=== PATIENT | male | born 1945 | race Caucasian/White ===

== ENCOUNTER 2016-06-22 11:45 | Emergency (ER) | payer OTHER, MEDICARE ==
[2016-06-22 11:51] VITALS: BP 133/63; PULSE 60; TEMP 97.8; BMI 49.7
--- NOTE | 2016-06-22 11:56 | PDOC ---
History of Present Illness - General Chief Complaint: Cold Symptoms Stated Complaint: CONGESTION,COUGH Time Seen by Provider: 06/22/16 11:52 - History of Present Illness Initial Comments: 06/22/16 13:13 Chief complaint: Nasal congestion, postnasal drip, nonproductive cough History of present illness: As above for several days. Similar symptoms during the spring and fall in past years. No fever/chills, sputum production, chest pain or shortness of breath Physical exam: Alert and oriented well-developed well-nourished no acute distress cheerful and cooperative. No tachypnea or dyspnea Afebrile, vital signs normal HEENT: Minimal watery nasal discharge and congestion. Otherwise ears and throat clear Neck supple without mass or nodes Chest clear with full breath sounds throughout bilaterally. No wheezes rales or rhonchi. No splinting with deep inspiration. Respiratory rate 16 unlabored. O2 saturation 100% on room air. CV regular without murmur rub or gallop Abdomen benign Impression: Nasal congestion and nonproductive cough probably the result of postnasal drip. This is probably a manifestation of seasonal ALLERGIC rhinitis. No sign of active chest disease, bronchitis, pneumonia, or CHF Plan: Symptomatic treatment and follow up with primary physician Dr. Faustin. Past History - Past Medical History Allergies/Adverse Reactions: Allergies Allergy/AdvReac Type Severity Reaction Status Date / Time Sulfa (Sulfonamide Allergy Unknown Verified 06/22/16 11:46 Antibiotics) Home Medications: Ambulatory Orders Aspirin 81 mg PO DAILY 09/17/12 Allopurinol [Zyloprim -] 300 mg PO DAILY 01/12/13 Atenolol [Tenormin -] 25 mg PO DAILY 01/12/13 Cholecalciferol (Vitamin D3) [Vitamin D3] 4,000 unit PO DAILY 01/12/13 Losartan 50Mg/Hctz 12.5MG [Hyzaar -] 1 tab PO DAILY 01/12/13 Zolpidem Tartrate [Ambien] 10 mg PO HS 09/03/15 Amlodipine Besylate 10 mg PO DAILY 10/24/15 Budesonide [Rhinocort Allergy] 2 sprays NS DAILY #1 spray.pump 06/22/16 Guaifenesin Dm [Mucinex Dm -] 1 tab PO BID #14 tab.er.12h 06/22/16 Loratadine [Claritin] 10 mg PO DAILY #14 tablet 06/22/16 Cardiac Disorders: Yes (sob) HTN: Yes Hypercholesterolemia: Yes Kidney Stones: Yes - Psycho/Social/Smoking Cessation Hx Anxiety: No Suicidal Ideation: No Smoking Status: Yes Smoking History: Former smoker Have you smoked in the past 12 months: No Number of Cigarettes Smoked Daily: 0 If you are a former smoker, when did you quit?: 1989 Information on smoking cessation initiated: No Hx Alcohol Use: No Drug/Substance Use Hx: No Substance Use Type: None *Physical Exam - Vital Signs Last Vital Signs Temp Pulse Resp BP Pulse Ox 97.8 F 60 18 133/63 96 06/22/16 11:46 06/22/16 11:46 06/22/16 11:46 06/22/16 11:46 06/22/16 11:46 *DC/Admit/Observation/Transfer Diagnosis at time of Disposition: Allergic rhinitis Qualifiers: Allergic rhinitis trigger: pollen Allergic rhinitis seasonality: seasonal Qualified Code(s): J30.1 - Allergic rhinitis due to pollen - Discharge Dispostion Disposition: HOME Condition at time of disposition: Stable Admit: No - Prescriptions Prescriptions: Loratadine [Claritin] 10 mg PO DAILY #14 tablet Guaifenesin Dm [Mucinex Dm -] 1 tab PO BID #14 tab.er.12h Budesonide [Rhinocort Allergy] 2 sprays NS DAILY #1 spray.pump - Referrals Referrals: Jhonatan Faustin MD [Primary Care Provider] - 3 days - Patient Instructions Printed Discharge Instructions: DI for Allergic Rhinitis
== END 2016-06-22 12:50 | disposition home or self-care (01) ==
LOC: FER 11:45
DX: J30.1 Allergic rhinitis due to pollen (principal); Z79.82 Long term (current) use of aspirin
CPT/HCPCS: 99282-25

== ENCOUNTER 2016-08-10 20:23 | Observation (INO) | payer OTHER, MEDICARE ==
[2016-08-10 20:43] VITALS: BMI 48.8
--- NOTE | 2016-08-10 21:10 | PDOC ---
History of Present Illness - General History Source: Patient Exam Limitations: No Limitations - History of Present Illness Initial Comments: 08/10/16 21:42 The patient is a 70 year old obese male with a past medical history of HTN, CKD , chronic psoriasis, who presents to the ED with worsening left sided chest pain , and lightheadedness today. Patient describes the chest pain as dull and intermittent. Patient states he has been belching for several months now as well. He has been following up with his GI but was worried about any cardiac issues. Patient denies SOB, palpitations, nausea, vomiting, diarrhea. His last [facility] appointment was last September. He had a stress test done that was normal. PCP: Dr. Faustin PAST MEDICAL HISTORY: HTN, CKD, chronic psoriasis PAST SURGICAL HISTORY: no significant history FAMILY HISTORY: Mother and father of heart attack. SOCIAL HISTORY: Pt lives with family and is employed. MEDICATIONS: reviewed ALLERGIES: As per nursing notes ROS General: No fevers or chills, no weakness, no weight loss HEENT: No change in vision. No sore throat,. No ear pain CardioVascular: + intermittent left sided chest pain. No shortness of breath Respiratory:No cough, or wheezing. Gastrointestinal: + belching. no nausea, vomiting, diarrhea or constipation, No rectal bleeding Genitourinary: No dysuria, hematuria, or frequency Musculoskeletal: No joint or muscle pain or swelling Neurologic: + lightheadedness. No headache, vertigo, or loss of consciousness Psychiatric: nor depression Skin: No rashes or easy bruising Endocrine: no increased thirst or abnormal weight change Allergic: no skin or latex allergy All other systems reviewed and normal Exam: General: No acute distress. Morbidly obese male. HEENT: Throat: Normal, tonsils normal, no erythema or exudate Neck: Supple, no meningeal signs, no lymphadenopathy Eyes::Pupils equal reactive and round, extraocular motion intact Chest: Nontender to palpation Cardiac: S1-S2 normal, regular rate and rhythm, no murmurs rubs or gallops Respiratory: Lungs clear to auscultation bilateral Abdomen: Protuberant abdomen. Soft, nondistended, normal bowel sounds, nontender to palpation diffusely. Extremities: Lower extremities is marked chronic lymphedema bilaterally with scaling bilaterally and some crusting. Rest of extremities: Warm, dry, no cyanosis, clubbing, or edema Skin: No rashes Neuro: Alert and oriented x3, nonfocal exam, grossly intact, normal gait Psych: Normal mood and affect <Grant Boland - Last Filed: 08/10/16 21:48> - General History Source: Patient Exam Limitations: No Limitations - History of Present Illness Initial Comments: 08/10/16 21:34 A portion of this note was documented by scribe services under my direction. I have reviewed the details of the note, within reason, and agree with the documentation. The case summary and management plan written by me. Chest x-ray no acute pathology EKG normal sinus rhythm at a rate of [address]-T wave abnormality no significant change from prior cardiogram of 10/24/2015 Assessment and plan: This is a 70-year-old male who comes in complaining substernal chest discomfort radiating to his left wrist. Patient said these episodes are not associated with any diaphoresis nausea or shortness of breath however he did have some associated dizziness this evening which prompted him to come in for evaluation. Patient has a strong family history of coronary disease artery disease Patient is morbidly obese and has a history of hypertension high cholesterol Patient's workup was negative for any acute cardiac causes however he needs to be admitted for observation for 2 more sets of enzymes. Discussed admission with the hospitalist who will the patient to a observation telemetry bed. <Darlin Causey I - Last Filed: 08/10/16 22:34> - General Chief Complaint: Pain Stated Complaint: REFLUX Time Seen by Provider: 08/10/16 20:45 Past History <Grant Boland - Last Filed: 08/10/16 21:48> - Past Medical History Cardiac Disorders: Yes (sob) GI Disorders: Yes (GERD) HTN: Yes Hypercholesterolemia: Yes Kidney Stones: Yes - Psycho/Social/Smoking Cessation Hx Anxiety: No Suicidal Ideation: No Smoking Status: Yes Smoking History: Never smoked Have you smoked in the past 12 months: No Number of Cigarettes Smoked Daily: 0 If you are a former smoker, when did you quit?: 1989 Information on smoking cessation initiated: No Hx Alcohol Use: No Drug/Substance Use Hx: No Substance Use Type: None <Darlin Causey I - Last Filed: 08/10/16 22:34> - Past Medical History Allergies/Adverse Reactions: Allergies Allergy/AdvReac Type Severity Reaction Status Date / Time Sulfa (Sulfonamide Allergy Unknown Verified 08/10/16 21:48 Antibiotics) Home Medications: Ambulatory Orders Aspirin 81 mg PO DAILY 09/17/12 Allopurinol [Zyloprim -] 300 mg PO DAILY 01/12/13 Atenolol [Tenormin -] 25 mg PO DAILY 01/12/13 Cholecalciferol (Vitamin D3) [Vitamin D3] 4,000 unit PO DAILY 01/12/13 Losartan 50Mg/Hctz 12.5MG [Hyzaar -] 1 tab PO DAILY 01/12/13 Zolpidem Tartrate [Ambien] 10 mg PO HS 09/03/15 Amlodipine Besylate 10 mg PO DAILY 10/24/15 Budesonide [Rhinocort Allergy] 2 sprays NS DAILY #1 spray.pump 06/22/16 Guaifenesin Dm [Mucinex Dm -] 1 tab PO BID #14 tab.er.12h 06/22/16 Loratadine [Claritin] 10 mg PO DAILY #14 tablet 06/22/16 Ranitidine [Zantac -] 150 mg PO BID 08/10/16 *Physical Exam - Vital Signs Last Vital Signs Temp Pulse Resp BP Pulse Ox 98.1 F 62 18 157/69 93 L 08/10/16 20:26 08/10/16 20:26 08/10/16 20:26 08/10/16 20:26 08/10/16 20:26 <Grant Boland - Last Filed: 08/10/16 21:48> - Vital Signs Last Vital Signs Temp Pulse Resp BP Pulse Ox 98.1 F 62 18 157/69 93 L 08/10/16 20:26 08/10/16 20:26 08/10/16 20:26 08/10/16 20:26 08/10/16 20:26 <Darlin Causey I - Last Filed: 08/10/16 22:34> ED Treatment Course - LABORATORY CBC & Chemistry Diagram: 08/10/16 21:30 08/10/16 21:30 <Grant Boland - Last Filed: 08/10/16 21:48> - LABORATORY CBC & Chemistry Diagram: 08/10/16 21:30 08/10/16 21:30 <Darlin Causey I - Last Filed: 08/10/16 22:34> *DC/Admit/Observation/Transfer - Attestations Scribe Attestion: 08/10/16 21:44 Documentation prepared by Grant Boland, acting as ophthalmic medical assistant for Darlin Causey MD. <Grant Boland - Last Filed: 08/10/16 21:48> - Discharge Dispostion Admit: Yes <Darlin Causey I - Last Filed: 08/10/16 22:34> Diagnosis at time of Disposition: Chest pain at rest - Discharge Dispostion Condition at time of disposition: Good - Referrals Referrals: Jhonatan Faustin MD [Primary Care Provider] -
[2016-08-10 21:51] LABS: BASOPHIL 0.3 % (0-2.0); EOSINOPHIL 5.2 % (0-4.5); MCH 28.5 pg (25.7-33.7); MCHC 33.3 g/dl (32.0-35.9); MEAN CELL VOLUME 85.5 fl (80-96); MEAN PLT VOLUME 8.2 fl (7.5-11.1); NEUTROPHILS 77.8 % (42.8-82.8); PLATELET COUNT 265 K/MM3 (134-434); RDW 14.6 % (11.9-15.9); WHITE BLOOD COUNT 8.6 K/mm3 (4.0-10.8)
[2016-08-10 22:06] LABS: ALBUMIN 3.8 g/dl (3.5-5.0); ALK PHOS 87 U/L (32-92); ANION GAP 9 (8-16); CALCIUM 9.9 mg/dl (8.4-10.2); CO2 25 mmol/L (22-28); CPK(DFH) 60 IU/L (38-174); GLUCOSE,RANDOM 91 mg/dl (74-106); SGOT/AST 15 U/L (10-42); SGPT/ALT 12 U/L (10-40); TOT PROT 6.9 g/dl (6.4-8.3)
[2016-08-10 22:26] LABS: TROPONIN I (DFP) < 0.03 ng/ml (0.03-0.50)
[2016-08-10] MEDS ORDERED: PANTOPRAZOLE 40 MG TABLET (FP) PO SCH (22:45)
[2016-08-10] MEDS ORDERED: ZOLPIDEM TARTRATE 5 MG TABLET PO PRN (22:50)
--- NOTE | 2016-08-10 22:57 | HP ---
CHIEF COMPLAINT: chest pain PCP: Mikey Lancaster, GI in [facility] HISTORY OF PRESENT ILLNESS: This is a 70 year old male with a past medical history of HTN, CKD, chronic psoriasis, GERD and nephrolithiasis who presents to the ED with a 1 month history of chest pain off and on. He states it all started after drinking a carbonated beverage approximately one month ago and he was unable to belch. Pt has been having frequent belching episodes and epigastric and chest discomfort since. He reports the chest discomfort is left sided and is relieved by position change. The pain is fleeting and lasts only minutes at a time. He aslo reports episode of lightheadedness earlier today which has completely resolved. He was seen by a GI doctor who started him on ranitidine which he stopped as it was "making his stomach worse". He was also recently started on claritin, mucinex and rhinocort for his allergies / PND which did not help either. He also stopped a statin in January that he was started on in September due to constipation. He reports he had a normal nuclear stress test and echocardiogram with Dr. Jensen in September 2015. ER course was notable for: (1) troponin neg x 1 (2) no ECG changes (3) normal CXR Recent Travel: pt denies PAST MEDICAL HISTORY: HTN CKD (pt denies but clear from previous labs) nephrolithiasis GERD chronic psoriasis PAST SURGICAL HISTORY: pt denies Social History: Smoking: pt denies current, quit many years ago Alcohol: pt denies Drugs: pt denies Family History: mother first MO age 60, age 81 in her sleep father [place] age 53, age 61, sudden Allergies Sulfa (Sulfonamide Antibiotics) Allergy (Unknown, Verified 08/10/16 21:48) HOME MEDICATIONS: 3 Medication Instructions Recorded Aspirin 81 mg PO DAILY 09/17/12 Allopurinol [Zyloprim -] 300 mg PO DAILY 01/12/13 Atenolol [Tenormin -] 25 mg PO DAILY 01/12/13 Cholecalciferol (Vitamin D3) 4,000 unit PO DAILY 01/12/13 [Vitamin D3] Losartan 50Mg/Hctz 12.5MG [Hyzaar 1 tab PO DAILY 01/12/13 -] Zolpidem Tartrate [Ambien] 10 mg PO HS 09/03/15 Amlodipine Besylate 10 mg PO DAILY 10/24/15 Ranitidine [Zantac -] 150 mg PO BID 08/10/16 REVIEW OF SYSTEMS CONSTITUTIONAL: Absent: fever, chills, diaphoresis, generalized weakness, malaise, loss of appetite, weight change HEENT: Absent: rhinorrhea, nasal congestion, throat pain, throat swelling, difficulty swallowing, mouth swelling, ear pain, eye pain, visual changes CARDIOVASCULAR: Present: chest pain, peripheral edema Absent: syncope, palpitations, irregular heart rate, lightheadedness RESPIRATORY: Absent: cough, shortness of breath, dyspnea with exertion, orthopnea, wheezing, stridor, hemoptysis GASTROINTESTINAL: Present: abdominal pain Absent: abdominal distension, nausea, vomiting, diarrhea, constipation, melena, hematochezia GENITOURINARY: Absent: dysuria, frequency, urgency, hesitancy, hematuria, flank pain, genital pain MUSCULOSKELETAL: Absent: myalgia, arthralgia, joint swelling, back pain, neck pain SKIN: Absent: rash, itching, pallor HEMATOLOGIC/IMMUNOLOGIC: Absent: easy bleeding, easy bruising, lymphadenopathy, frequent infections ENDOCRINE: Absent: unexplained weight gain, unexplained weight loss, heat intolerance, cold intolerance NEUROLOGIC: Absent: headache, focal weakness or paresthesias, dizziness, unsteady gait, seizure, mental status changes, bladder or bowel incontinence PSYCHIATRIC: Absent: anxiety, depression, suicidal or homicidal ideation, hallucinations. PHYSICAL EXAMINATION Vital Signs - 24 hr 3 08/10/16 20:26 Temperature 98.1 F Pulse Rate 62 Respiratory 18 Rate Blood Pressure 157/69 O2 Sat by Pulse 93 L Oximetry (%) GENERAL: Awake, alert, and fully oriented, in no acute distress. HEAD: Normal with no signs of trauma. EYES: Pupils equal, round and reactive to light, extraocular movements intact, sclera anicteric, conjunctiva clear. No lid lag. EARS, NOSE, THROAT: Ears normal, nares patent, oropharynx clear without exudates. Moist mucous membranes. NECK: Normal range of motion, supple without lymphadenopathy, JVD, or masses. LUNGS: Breath sounds equal, clear to auscultation bilaterally. No wheezes, and no crackles. No accessory muscle use. HEART: Regular rate and rhythm, normal S1 and S2 without murmur, rub or gallop. ABDOMEN: OBESE, soft, nontender, not distended, normoactive bowel sounds, no guarding, no rebound, no masses. No hepatomegaly or splenomegaly. MUSCULOSKELETAL: Normal range of motion at all joints. No bony deformities or tenderness. No CVA tenderness. UPPER EXTREMITIES: 2+ pulses, warm, well-perfused. No cyanosis. No clubbing. No peripheral edema. LOWER EXTREMITIES: 2+ pulses, warm, well-perfused. No calf tenderness. b/l LE scaly, hypertrophic lesions, left with tr edema, right 1+ NEUROLOGICAL: Cranial nerves II-XII intact. Normal speech. Normal gait. PSYCHIATRIC: Cooperative. Good eye contact. Appropriate mood and affect. SKIN: Warm, dry, normal turgor, no rashes or lesions noted, normal capillary refill. Laboratory Results - last 24 hr 3 08/10/16 08/10/16 08/10/16 21:30 21:30 21:30 WBC 8.6 RBC 5.36 Hgb 15.3 D Hct 45.9 MCV 85.5 MCHC 33.3 RDW 14.6 Plt Count 265 MPV 8.2 Neutrophils % 77.8 Lymphocytes % 11.3 Monocytes % 5.4 Eosinophils % 5.2 H Basophils % 0.3 Sodium 134 L Potassium 4.0 Chloride 100 Carbon Dioxide 25 D Anion Gap 9 BUN 32 H D Creatinine 2.0 H D Creat Clearance w eGFR 33.01 Random Glucose 91 Calcium 9.9 Total Bilirubin 1.0 D AST 15 D ALT 12 Alkaline Phosphatase 87 Creatine Kinase 60 Troponin I < 0.03 L Total Protein 6.9 Albumin 3.8 Lipase 30 CHEST X-RAY PORTABLE* HISTORY PROVIDED: GERD. A single frontal portable projection of the chest at 9:23 PM is submitted. The heart size is within normal limits. The lung avendaño are free of pulmonary infiltrates or pleural effusions. IMPRESSION: No acute disease. ECG: NSR rate 59, QTC 427, nonspecific ST/T changes, unchanged from previous ECG ASSESSMENT/PLAN: 70yM with PMH HTN, CKD, chronic psoriasis, GERD, renal colic presents with chest discomfort x 1 month and lightheadedness today. He is being admitted for further observation. Chest pain - nonspecific, unlikely cardiac - Troponin neg x 1, trend x2 more, if neg would dc home with o/p follow up with PCP and cardiology - monitor on tele Acute on CKD - Cr of 2.0 above baseline of 1.5-1.6 - gentle iv hydration @ 75cc/hr x 1 liter - cont allopurinol for nephrolithiasis GERD - trial of protonix - f/u with GI as outpatient for EGD HTN - cont home amlodipine, hyzaar and atenolol. Monitor BP and if persistently elevated, adjust dosing DVT PPX - defer as expected LOS <48h Dispo: Full code. Pt currently requires inpatient observation for management of his emergent condition. Visit type - Emergency Visit Emergency Visit: Yes ED Registration Date: 08/10/16 Care time: The patient presented to the Emergency Department on the above date and was hospitalized for further evaluation of their emergent condition. - New Patient This patient is new to me today: Yes Date on this admission: 08/10/16 - Critical Care Critical Care patient: No
[2016-08-10] MEDS ORDERED: SODIUM CHLORIDE 1,000 ML IV SCH (23:00)
[2016-08-11 05:01] LABS: TROPONIN I < 0.02 ng/ml (0.00-0.05)
[2016-08-11 06:05] VITALS: BP 137/66; PULSE 54; TEMP 97.6
[2016-08-11 07:45] LABS: BASOPHIL 2.7 % (0-2.0); EOSINOPHIL 6.4 % (0-4.5); MCH 28.8 pg (25.7-33.7); MCHC 33.9 g/dl (32.0-35.9); MEAN PLT VOLUME 7.5 fl (7.5-11.1); NEUTROPHILS 69.1 % (42.8-82.8); PLATELET COUNT 227 K/MM3 (134-434); RDW 14.5 % (11.9-15.9); WHITE BLOOD COUNT 7.7 K/mm3 (4.0-10.8)
[2016-08-11 08:03] LABS: CPK(DFH) 55 IU/L (38-174)
[2016-08-11 08:05] LABS: ANION GAP 10 (8-16); CALCIUM 9.6 mg/dl (8.4-10.2); CO2 26 mmol/L (22-28); CREATININE 1.8 mg/dl (0.6-1.3); GLUCOSE,RANDOM 92 mg/dl (74-106); PHOSPHOROUS 3.6 mg/dl (2.5-4.6)
[2016-08-11 08:53] LABS: TROPONIN I (DFP) < 0.03 ng/ml (0.03-0.50)
[2016-08-11] MEDS ORDERED: ALLOPURINOL 300 MG TABLET (FP) PO SCH (10:00)
[2016-08-11] MEDS ORDERED: LOSARTAN 50MG/HCTZ 12.5MG 1 TAB (FP) PO SCH (10:00)
[2016-08-11] MEDS ORDERED: CHOLECALCIFEROL (VITAMIN D3) 1,000 UNIT TABLET (FP) PO SCH (10:00)
[2016-08-11] MEDS ORDERED: amLODIPine BESYLATE 10 MG TABLET (FP) PO SCH (10:00)
[2016-08-11] MEDS ORDERED: ATENOLOL 25 MG TABLET (FP) PO SCH (10:00)
[2016-08-11] MEDS ORDERED: ASPIRIN 81 MG CHEWABLE TABLETS PO SCH (10:00)
--- NOTE | 2016-08-11 10:04 | DS ---
Physical Exam: SUBJECTIVE: Patient seen and examined. No chest pain. Reports symptoms completely resolved, attributes this to Protonix. OBJECTIVE: Vital Signs Period Temp Pulse Resp BP Sys/Amaral Pulse Ox Last 24 Hr 97.6 F-97.9 F 54-61 20-20 137-139/65-66 92-98 PHYSICAL EXAM GENERAL: The patient is awake, alert, and fully oriented, in no acute distress. HEAD: Normal with no signs of trauma. EYES: PERRL, extraocular movements intact, sclera anicteric, conjunctiva clear. ENT: Ears normal, nares patent, oropharynx clear without exudates, moist mucous membranes. NECK: Trachea midline, full range of motion, supple. LUNGS: Breath sounds equal, clear to auscultation bilaterally, no wheezes, no crackles, no accessory muscle use. HEART: Regular rate and rhythm, S1, S2 without murmur, rub or gallop. ABDOMEN: Soft, nontender, obese, normoactive bowel sounds, no guarding, no rebound, no hepatosplenomegaly, no masses. EXTREMITIES: 2+ pulses, warm, well-perfused, 1+ LE edema (baseline per patient) . NEUROLOGICAL: Cranial nerves II through XII grossly intact. Normal speech, gait not observed. PSYCH: Normal mood, normal affect. SKIN: Warm, dry, extensive psoriatic plaques to lower extremities, elbows, and lower back. LABS Laboratory Results - last 24 hr 08/11/16 08/11/16 08/11/16 03:16 03:16 07:37 WBC 7.7 RBC 5.21 Hgb 15.0 Hct 44.3 MCV 85.0 MCHC 33.9 RDW 14.5 Plt Count 227 MPV 7.5 Neutrophils % 69.1 Lymphocytes % 15.3 D Monocytes % 6.5 Eosinophils % 6.4 H Basophils % 2.7 H D Sodium Potassium Chloride Carbon Dioxide Anion Gap BUN Creatinine Random Glucose Calcium Phosphorus Magnesium Creatine Kinase Cancelled 49 Troponin I Cancelled < 0.02 08/11/16 08/11/16 07:37 07:37 WBC RBC Hgb Hct MCV MCHC RDW Plt Count MPV Neutrophils % Lymphocytes % Monocytes % Eosinophils % Basophils % Sodium 136 Potassium 3.8 Chloride 100 Carbon Dioxide 26 Anion Gap 10 BUN 29 H Creatinine 1.8 H Random Glucose 92 Calcium 9.6 Phosphorus 3.6 Magnesium 2.0 Creatine Kinase 55 Troponin I < 0.03 L HOSPITAL COURSE: 70 year old male with a history of HTN, CKD (baseline Cr 1.5), chronic psoriasis, GERD, seasonal allergies, and nephrolithiasis who presented to the ED on 08/10 with one month of intermittent chest discomfort. He reports that he was not drinking enough water during the recent hot days, and felt lightheaded; this is what prompted him to present to the ED. He reports he had a normal nuclear stress test and echocardiogram with Dr. Jensen in September 2015. Hospital course was notable for: (1) EKG:NSR at a rate of [address]-T wave abnormality; no significant change from prior cardiogram of 10/24/2015 (2) CXR: No acute process (3) TNI neg x 3 Patient is feeling well today and is eager to leave. He has a followup appointment with Dr. Faustin on Saturday. Return precautions reviewed. Date of Admission:08/10/16 Date of Discharge: 08/11/16 Minutes to complete discharge: 40 Discharge Summary Reason For Visit: CHEST PAIN AT REST Current Active Problems Chest pain at rest (Acute) Condition: Improved - Instructions Diet, Activity, Other Instructions: -Rest and stay well-hydrated -Continue all of your prescribed medications, with the following changes: -Do not take Hyzaar (Losartan/HCTZ) today or tomorrow to allow your kidney function to recover -Start taking Protonix (pantoprazole) for your stomach discomfort -Follow up with Dr. Faustin on Saturday as scheduled -Return here for chest pain, shortness of breath, or any other concerning symptoms Referrals: Jhonatan Faustin MD [Primary Care Provider] - - Home Medications Comprehensive Discharge Medication List: Ambulatory Orders Aspirin 81 mg PO DAILY 09/17/12 Allopurinol [Zyloprim -] 300 mg PO DAILY 01/12/13 Atenolol [Tenormin -] 25 mg PO DAILY 01/12/13 Cholecalciferol (Vitamin D3) [Vitamin D3] 4,000 unit PO DAILY 01/12/13 Losartan 50Mg/Hctz 12.5MG [Hyzaar -] 1 tab PO DAILY 01/12/13 Zolpidem Tartrate [Ambien] 10 mg PO HS 09/03/15 Amlodipine Besylate 10 mg PO DAILY 10/24/15 Budesonide [Rhinocort Allergy] 2 sprays NS DAILY #1 spray.pump 06/22/16 Ranitidine [Zantac -] 150 mg PO BID 08/10/16 This patient is new to me today: Yes Date on this admission: 08/11/16 Emergency Visit: Yes ED Registration Date: 08/10/16 Care time: The patient presented to the Emergency Department on the above date and was hospitalized for further evaluation of their emergent condition. Critical Care patient: No - Discharge Referral Referred to [facility] Yes Physician Referral: Jhonatan Faustin MD (Int Med)
--- NOTE | 2016-08-13 08:37 | EKG ---
Test Reason : Blood Pressure : / mmHG Vent. Rate : 059 BPM Atrial Rate : 059 BPM P-R Int : 208 ms QRS Dur : 074 ms QT Int : 432 ms P-R-T Axes : 017 017 033 degrees QTc Int : 427 ms POOR DATA QUALITY, INTERPRETATION MAY BE ADVERSELY AFFECTED SINUS BRADYCARDIA WITH SINUS ARRHYTHMIA NONSPECIFIC T WAVE ABNORMALITY ABNORMAL ECG WHEN COMPARED WITH ECG OF 19-FEB-2011 12:33, NONSPECIFIC T WAVE ABNORMALITY is now present in V2 Confirmed by INGA PEREZ MD ([id number]) on 08/13/2016 8:37:37 AM Referred By: MD ROJAS Confirmed By:INGA PEREZ MD
== END 2016-08-11 10:40 | disposition home or self-care (01) ==
LOC: FER 20:23 → FM/S 22:39
PROVIDERS: ADMIT Internal Medicine; ATTEND Registered Nurse Emergency
DX: R07.9 Chest pain, unspecified (principal); I12.9 Hypertensive chronic kidney disease with stage 1 through stage 4 chronic kidney disease, or unspecified chronic kidney disease; N18.9 Chronic kidney disease, unspecified; N17.9 Acute kidney failure, unspecified; E78.00 Pure hypercholesterolemia, unspecified; L40.9 Psoriasis, unspecified; E66.01 Morbid (severe) obesity due to excess calories; Z68.42 Body mass index [BMI] 45.0-49.9, adult; K21.9 Gastro-esophageal reflux disease without esophagitis; Z88.2 Allergy status to sulfonamides; Z79.82 Long term (current) use of aspirin
CPT/HCPCS: 36415; 71010-TC; 80048; 80053; 82550; 83690; 83735; 83880; 84100; 84484; 85025; 93005; 99285-25; G0378

== ENCOUNTER 2016-10-22 03:02 | Emergency (ER) | payer OTHER, MEDICARE ==
--- NOTE | 2016-10-22 03:05 | PDOC ---
History of Present Illness - General Chief Complaint: Lightheaded Stated Complaint: LIGHTHEADED, FEELS PULLING IN UPPER CHEST X 2 GILL Time Seen by Provider: 10/22/16 03:04 - History of Present Illness Initial Comments: 10/22/16 03:53 This 70-year-old man with a history of hypertension, morbid obesity, GERD, psoriasis/peripheral neuropathy, renal insufficiency presents with several week history of intermittent left anterior chest pain. The pain which patient rates at 4/10, is located below the left axilla and worsened when he moves his left arm in a certain way, laughs or coughs. Pain began approximately 2 months ago, suddenly ,when he was bearing down while having a bowel movement. He denies shortness of breath/cough and pain does not worsen with deep breathing. He states that he does not have the pain when he exerts himself (such as walking upstairs). Patient also complains of nonspecific lightheadedness (not vertigo) the last few days. This is not related to activity or position and he denies nausea. 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 He has an appointment with Dr. Jensen at 1 PM, later today. Patient was admitted here in July of this year with atypical chest pain: Subsequent endoscopy on August 31 revealed gastritis and esophagitis. Since then, the patient is taking Protonix and most of his gastrointestinal issues are improving. Cardiac risk factors: Hypertension/morbid obesity/family history (both parents with MIs). Patient denies hyperlipidemia. He quit smoking 26 years ago Past History - Past Medical History Allergies/Adverse Reactions: Allergies Allergy/AdvReac Type Severity Reaction Status Date / Time Sulfa (Sulfonamide Allergy Unknown Verified 10/22/16 03:06 Antibiotics) Home Medications: Ambulatory Orders Pantoprazole Sodium [Protonix -] 40 mg PO DAILY #30 tab 08/11/16 Cholecalciferol (Vitamin D3) [Vitamin D3] 2,000 unit PO ASDIR tablet 08/17/16 Zolpidem Tartrate [Ambien] 10 mg PO HS 10/22/16 Cardiac Disorders: Yes (sob) GI Disorders: Yes (GERD) HTN: Yes Hypercholesterolemia: Yes Kidney Stones: Yes - Psycho/Social/Smoking Cessation Hx Anxiety: No Suicidal Ideation: No Smoking Status: Yes Smoking History: Former smoker Have you smoked in the past 12 months: No Number of Cigarettes Smoked Daily: 0 If you are a former smoker, when did you quit?: 1989 Hx Alcohol Use: No Drug/Substance Use Hx: No Substance Use Type: None Review of Systems - Review of Systems Able to Perform ROS?: Yes Comments:: 12 point review of systems is negative except for what is noted in the history of present illness *Physical Exam - Physical Exam Comments: GENERAL: Adult, morbidly obese man, speaking in full sentences, in no acute distress HEAD: Normal with no signs of trauma. EYES: PERRLA, EOMI, sclera anicteric, conjunctiva clear. ENT: Ears normal, nares patent, oropharynx clear without exudates. Moist mucous membranes. NECK: Normal range of motion, supple without lymphadenopathy, JVD, or masses. LUNGS: Breath sounds equal, clear to auscultation bilaterally. No wheezes, and no crackles. CHEST WALL: No tenderness, crepitus, step offs palpated; left anterolateral chest pain not reproduced with abduction/adduction of the arm HEART:Regular rate and rhythm, normal S1 and S2 without murmur, rub or gallop. ABDOMEN:.normal bowel sounds protuberant with mild epigastric tenderness No guarding,tenderness or rebound.No masses EXTREMITIES: 3+ nonpitting edema throughout bilateral lower extremities with patches of scaly rash NEUROLOGICAL: Cranial nerves II through XII grossly intact. Normal , fluent speech. Moving all 4 extremities equally MUSCULOSKELETAL: Back non-tender to palpation, no CVA tenderness SKIN: Warm, Dry, normal turgor 12-lead electrocardiogram is performed and interpreted by me. There is significant baseline interference pattern. Sinus bradycardia 51 beats per minute. [place], wave forms and intervals are all unchanged from tracing dated ED Treatment Course - LABORATORY CBC & Chemistry Diagram: 10/22/16 03:32 10/22/16 03:32 *DC/Admit/Observation/Transfer Diagnosis at time of Disposition: Atypical chest pain, Dehydration - Discharge Dispostion Disposition: HOME Condition at time of disposition: Stable - Referrals Referrals: Jhonatan Faustin MD [Primary Care Provider] - Theo Jensen MD [Staff Physician] - 24 hours - Patient Instructions Printed Discharge Instructions: DI for Dehydration -- Adult, DI for Atypical Chest Pain Additional Instructions: Drink plenty of water as discussed Follow-up today with Dr. Jensen as previously scheduled Contact Dr. Faustin for follow-up within 1 week Return to ER if you have worsening pain or severe lightheadedness Gradually increase activity as discussed
[2016-10-22 03:15] VITALS: BP 146/71; PULSE 58; TEMP 97.5; BMI 47.5
[2016-10-22 04:09] LABS: BASOPHIL 0.9 % (0-2.0); MCH 28.9 pg (25.7-33.7); MCHC 33.7 g/dl (32.0-35.9); MEAN CELL VOLUME 85.9 fl (80-96); MEAN PLT VOLUME 8.1 fl (7.5-11.1); NEUTROPHILS 76.5 % (42.8-82.8); PLATELET COUNT 207 K/MM3 (134-434); RDW 15.2 % (11.9-15.9); WHITE BLOOD COUNT 7.7 K/mm3 (4.0-10.0)
[2016-10-22 04:26] LABS: INR 1.12 (0.82-1.09); PROTHROMBIN TIME (PATIENT) 12.4 SEC (9.98-11.88)
[2016-10-22 04:30] LABS: ALBUMIN 3.5 g/dl (3.4-5.0); ANION GAP 9 (8-16); BILIRUBIN,TOTAL 0.8 mg/dL (0.2-1.0); CALCIUM 8.6 mg/dL (8.5-10.1); CO2 26 mmol/L (21-32); CREATININE 2.3 mg/dL (0.7-1.3); GLUCOSE,RANDOM 89 mg/dL (74-106); SGOT/AST 14 U/L (15-37); SGPT/ALT 18 U/L (12-78); TOT PROT 7.3 g/dl (6.4-8.2)
[2016-10-22 04:32] LABS: ALK PHOS 111 U/L (45-117); CPK 87 IU/L (39-308); TROPONIN I 0.02 ng/ml (0.00-0.05)
--- NOTE | 2016-10-22 17:44 | EKG ---
Test Reason : Blood Pressure : / mmHG Vent. Rate : 051 BPM Atrial Rate : 051 BPM P-R Int : 200 ms QRS Dur : 086 ms QT Int : 482 ms P-R-T Axes : 056 008 027 degrees QTc Int : 444 ms POOR DATA QUALITY, INTERPRETATION MAY BE ADVERSELY AFFECTED SINUS BRADYCARDIA NONSPECIFIC ST AND T WAVE ABNORMALITY WHEN COMPARED WITH ECG OF 10-AUG-2016 20:51, NONSPECIFIC T WAVE ABNORMALITY NOW EVIDENT IN LATERAL LEADS Confirmed by MD NIXON, CHRISTIANA ([id number]) on 10/22/2016 5:43:37 PM Referred By: MD ROSA Confirmed By:CHRISTIANA ALICEA MD
== END 2016-10-22 05:07 | disposition home or self-care (01) ==
LOC: FER 03:02
DX: R07.89 Other chest pain (principal); E86.0 Dehydration; E66.01 Morbid (severe) obesity due to excess calories; Z68.42 Body mass index [BMI] 45.0-49.9, adult; K21.9 Gastro-esophageal reflux disease without esophagitis; I10 Essential (primary) hypertension; E78.00 Pure hypercholesterolemia, unspecified; Z87.891 Personal history of nicotine dependence; Z87.442 Personal history of urinary calculi
CPT/HCPCS: 36415; 80053; 84484; 85025; 85610; 93005; 99282-25

== ENCOUNTER 2016-11-04 09:35 | Emergency (ER) | payer OTHER, MEDICARE ==
[2016-11-04 10:04] VITALS: BP 128/61; PULSE 53; TEMP 97.6; BMI 46.0
[2016-11-04 10:52] LABS: BASOPHIL 0.5 % (0-2.0); EOSINOPHIL 5.2 % (0-4.5); MCH 29.3 pg (25.7-33.7); MCHC 33.7 g/dl (32.0-35.9); MEAN CELL VOLUME 87.1 fl (80-96); MEAN PLT VOLUME 7.2 fl (7.5-11.1); NEUTROPHILS 80.5 % (42.8-82.8); PLATELET COUNT 215 K/MM3 (134-434); RDW 15.1 % (11.9-15.9); WHITE BLOOD COUNT 6.9 K/mm3 (4.0-10.8)
--- NOTE | 2016-11-04 11:07 | PDOC ---
History of Present Illness - General Chief Complaint: Lightheaded Stated Complaint: DIZZINESS Time Seen by Provider: 11/04/16 09:40 History Source: Patient Exam Limitations: No Limitations - History of Present Illness Initial Comments: 11/04/16 11:08 70y M hx of htn, obesity, gerd, psoriasis/peripheral neuropathy, renal insufficiency, presents with intermittent numnbess/tingling of arms for the past few days. Pt states that he has been having intermittent lightheadedness that is not positional or exacerbated by any activities for which he has followed up with cardiology and neurology, had his meds changed and a CT of his head. His intermittent lightheadedness is unchanged. He came today edue to intermittent numbness/tingling on the dorsal aspect of his hands/arms for the past 2 days, lasting for minutes/hours. THe last episode was last night before he went to bed and since then his sypmtoms have largely resolved. The pt denies any headache,neck pain, chest pain, back pain, weakness, facial weakness, vision changes, speech changes, fever/chills, cough, sob, [place], diaphoresis. pt had stress/echo about [address] eddy Past History - Past Medical History Allergies/Adverse Reactions: Allergies Allergy/AdvReac Type Severity Reaction Status Date / Time Sulfa (Sulfonamide Allergy Unknown Verified 10/22/16 03:06 Antibiotics) Home Medications: Ambulatory Orders Pantoprazole Sodium [Protonix -] 40 mg PO DAILY #30 tab 08/11/16 Cholecalciferol (Vitamin D3) [Vitamin D3] 2,000 unit PO ASDIR tablet 08/17/16 Zolpidem Tartrate [Ambien] 10 mg PO HS 10/22/16 Losartan Potassium [Cozaar -] 50 mg PO DAILY 11/04/16 Cardiac Disorders: Yes (sob) GI Disorders: Yes (GERD) HTN: Yes Hypercholesterolemia: Yes Kidney Stones: Yes Other medical history: VERTIGO - Psycho/Social/Smoking Cessation Hx Anxiety: No Suicidal Ideation: No Smoking Status: Yes Smoking History: Former smoker Have you smoked in the past 12 months: No Number of Cigarettes Smoked Daily: 0 If you are a former smoker, when did you quit?: 1989 Information on smoking cessation initiated: No Hx Alcohol Use: No Drug/Substance Use Hx: No Substance Use Type: None Review of Systems - Review of Systems Able to Perform ROS?: Yes Comments:: 11/04/16 12:08 Constitutional - no reported Fever, Chills, HEENT: no reported vision changes, sore throat Respiratory: no reported cough, sob, hemoptysis Cardiac: no reported chest pain, palpitations, light headedness, leg swelling Abd/GI: no reported abd pain, nausea, vomiting, blood per rectum, melena, diarrhea : no reported dysuria, frequency, discharge Musculskelatal - no reported back pain, joint swelling skin - no reported bruising, erythema, rash neurological: +tngling on arms intermittently no reported headache, numbness, focal weakness, ataxia, hematologic: no reported anemia, easy bruising, easy bleeding *Physical Exam - Vital Signs Last Vital Signs Temp Pulse Resp BP Pulse Ox 97.6 F 53 L 18 128/61 95 11/04/16 09:36 11/04/16 09:36 11/04/16 09:36 11/04/16 09:36 11/04/16 09:36 - Physical Exam Comments: GENERAL: The patient is awake, alert, and fully oriented, Nontoxic - in no acute distress. morbidly obese HEAD: Normocephalic, atraumatic. EYES: extraocular movements intact, sclera anicteric, conjunctiva clear. ENT: Normal voice, Moist mucous membranes, impacted ceremen in R ear NECK: Normal range of motion, supple LUNGS: Breath sounds equal, clear to auscultation bilaterally. No wheezes, no rhonchi, no rales. HEART: Regular rate and rhythm, normal S1 and S2 without murmur, rub or gallop. ABDOMEN: Soft, nontender, normoactive bowel sounds. No guarding, no rebound. . No CVA tenderness EXTREMITIES: Normal range of motion, +2 edema, +chronic vascular changes/ psoriatic lesions on shins, mildy erythemadous without warmth or tenderness or induration. NEUROLOGICAL: No facial assymetry, Normal speech, PSYCH: Normal mood, normal affect. SKIN: Warm, Dry, normal turgor, Heart Score/ECG Review - ECG Impressions Comment:: 11/04/16 11:12 Twelve-lead EKG was performed and reviewed by me. There is normal sinus rhythm with a rate of [address]-T wave ED Treatment Course - LABORATORY CBC & Chemistry Diagram: 11/04/16 10:40 11/04/16 10:40 - ADDITIONAL ORDERS Additional order review: 11/04/16 10:40 RBC 4.86 MCV 87.1 MCHC 33.7 RDW 15.1 MPV 7.2 L Neutrophils % 80.5 Lymphocytes % 8.6 D Monocytes % 5.2 Eosinophils % 5.2 H Basophils % 0.5 Medical Decision Making - Medical Decision Making 11/04/16 12:05 The pt is feeling improved labs unremarkable the patient does have impated ceremen in his R ear - perhaps that is the cause of his dizziness willhave him fu with ENT for reevaluation will dc with supportive care return precautions were discussed I discussed the physical exam findings, ancillary test results and final diagnoses with the patient. I answered all of the patient's questions. The patient was satisfied with the care received and felt comfortable with the discharge plan and treatment plan. The patient will call their primary care physician within 24 hours to arrange follow-up and will return to the Emergency Department with any new, persistent or worsening symptoms. *DC/Admit/Observation/Transfer Diagnosis at time of Disposition: Tingling in extremities, Impacted cerumen of right ear - Discharge Dispostion Disposition: HOME Condition at time of disposition: Improved Admit: No - Referrals Referrals: Jhonatan Faustin MD [Primary Care Provider] - Daniel Yo MD [Staff Physician] - - Patient Instructions Printed Discharge Instructions: DI for Numbness/tingling Additional Instructions: Return to the emergency department immediately with ANY new, persistent or worsening symptoms. You MUST call and follow up with dr faustin, dr. kovacs and your ENT for further evaluation of your symptoms. Results were discussed with you. Please make sure your doctor reviews the results of your emergency evaluation.
[2016-11-04 11:09] LABS: ALBUMIN 3.5 g/dl (3.5-5.0); ALK PHOS 85 U/L (32-92); ANION GAP 9 (8-16); BILIRUBIN,TOTAL 0.6 mg/dl (0.2-1.0); CALCIUM 8.7 mg/dl (8.4-10.2); CO2 26 mmol/L (22-28); CREATININE 1.5 mg/dl (0.6-1.3); GLUCOSE,RANDOM 93 mg/dl (74-106); SGOT/AST 15 U/L (10-42); SGPT/ALT 13 U/L (10-40); TOT PROT 6.7 g/dl (6.4-8.3)
--- NOTE | 2016-11-04 12:04 | PDOC ---
Patient Follow-up (Call Back) - Post ED Follow - Up Chief Complaint: Cold Symptoms Condition at time of discharge: Improved Disposition at time of original discharge: HOME Reason for Call Back: Radiology Signs/Symptoms Improved: Yes - Disposition Rx Needed: No Additional Instructions/Notes: pt will fu with PMD on
--- NOTE | 2016-11-06 10:25 | EKG ---
Test Reason : Blood Pressure : / mmHG Vent. Rate : 051 BPM Atrial Rate : 051 BPM P-R Int : 208 ms QRS Dur : 078 ms QT Int : 482 ms P-R-T Axes : 032 007 051 degrees QTc Int : 444 ms SINUS BRADYCARDIA NONSPECIFIC ST ABNORMALITY WHEN COMPARED WITH ECG OF 22-OCT-2016 03:20, NONSPECIFIC T WAVE ABNORMALITY, IMPROVED IN ANTEROLATERAL LEADS Confirmed by MD NIXON, CHRISTIANA ([id number]) on 11/06/2016 10:25:43 AM Referred By: MARION WEBER Confirmed By:CHRISTIANA ALICEA MD
== END 2016-11-04 12:12 | disposition home or self-care (01) ==
LOC: FER 09:35
DX: R20.2 Paresthesia of skin (principal); H61.21 Impacted cerumen, right ear; I10 Essential (primary) hypertension; E78.00 Pure hypercholesterolemia, unspecified; K21.9 Gastro-esophageal reflux disease without esophagitis; E66.9 Obesity, unspecified; Z68.42 Body mass index [BMI] 45.0-49.9, adult; N28.9 Disorder of kidney and ureter, unspecified; Z87.891 Personal history of nicotine dependence; Z87.442 Personal history of urinary calculi; Z88.2 Allergy status to sulfonamides
CPT/HCPCS: 36415; 80053; 85025; 93005; 99283-25

== ENCOUNTER 2016-11-30 09:30 | Inpatient (IN) | payer OTHER, MEDICARE ==
--- NOTE | 2016-11-30 09:39 | PDOC ---
History of Present Illness - General History Source: Patient Exam Limitations: No Limitations - History of Present Illness Initial Comments: 11/30/16 10:25 71 year old morbidly obese male, with significant past medical history of HTN, psoriasis/peripheral neuropathy, and renal insufficiency, undiagnosed CHF, who presents to the emergency room [facility] complaining of 3 days of difficulty breathing. EMS administered CPAP and 1 sublingual nitro in field. Upon arrival to the ER, the O2 sat was 88% on room air. The patient is speaking in full sentences. The patient notes that he gained 15-20lbs this month. He reports that he recently stopped taking hydrochlorothiazide and that his LLE is more swollen than usual. Denies chest pain, cough, palpitations. Denies fever, chills, nausea, vomiting. Denies calf pain. Denies recent travel. Allergies: Sulfa Social hx: Former tobacco use. PCP: Dr. Faustin School Year Nanny: Dr. Jensen <Keeley Jimenez - Last Filed: 11/30/16 10:30> <Jessi Taylor - Last Filed: 11/30/16 10:43> - General Chief Complaint: Shortness of Breath Stated Complaint: Shortness of Breath Time Seen by Provider: 11/30/16 09:39 Past History <Keeley Jimenez - Last Filed: 11/30/16 10:30> - Past Medical History Cardiac Disorders: Yes (sob) GI Disorders: Yes (GERD) HTN: Yes Hypercholesterolemia: Yes Kidney Stones: Yes - Suicide/Smoking/Psychosocial Hx Smoking Status: Yes Smoking History: Former smoker Have you smoked in the past 12 months: No Number of Cigarettes Smoked Daily: 0 If you are a former smoker, when did you quit?: 1989 Hx Alcohol Use: No Drug/Substance Use Hx: No Substance Use Type: None <Jessi Taylor - Last Filed: 11/30/16 10:43> - Past Medical History Allergies/Adverse Reactions: Allergies Allergy/AdvReac Type Severity Reaction Status Date / Time Sulfa (Sulfonamide Allergy Unknown Verified 11/30/16 10:29 Antibiotics) Home Medications: Ambulatory Orders Pantoprazole Sodium [Protonix -] 40 mg PO DAILY #30 tab 08/11/16 Cholecalciferol (Vitamin D3) [Vitamin D3] 2,000 unit PO ASDIR tablet 08/17/16 Zolpidem Tartrate [Ambien] 10 mg PO HS 10/22/16 Losartan Potassium [Cozaar -] 50 mg PO DAILY 11/04/16 Review of Systems - Review of Systems Able to Perform ROS?: Yes Comments:: 11/30/16 10:25 GENERAL/CONSTITUTIONAL: No fever or chills. No weakness. HEAD, EYES, EARS, NOSE AND THROAT: No change in vision. No ear pain or discharge. No sore throat. GASTROINTESTINAL: No nausea, vomiting, diarrhea or constipation. GENITOURINARY: No dysuria, frequency, or change in urination. CARDIOVASCULAR: No chest pain. RESPIRATORY: +difficulty breathing. No cough, wheezing, or hemoptysis. MUSCULOSKELETAL: No joint or muscle swelling or pain. No neck or back pain. SKIN: No rash NEUROLOGIC: No headache, vertigo, loss of consciousness, or change in strength/ sensation. ENDOCRINE: No increased thirst. No abnormal weight change. HEMATOLOGIC/LYMPHATIC: No anemia, easy bleeding, or history of blood clots. ALLERGIC/IMMUNOLOGIC: No hives or skin allergy. <Keeley Jimenez - Last Filed: 11/30/16 10:30> *Physical Exam - Vital Signs Last Vital Signs Temp Pulse Resp BP Pulse Ox 66 26 H 113/99 98 11/30/16 09:38 11/30/16 09:38 11/30/16 09:38 11/30/16 09:51 - Physical Exam Comments: 11/30/16 10:25 Constitutional: Awake, alert, oriented. Morbidly obese. Head: Normocephalic. Atraumatic Eyes: PERRL. EOMI. Conjunctivae are not pale. ENT: Mucous membranes are moist and intact. Posterior pharynx without exudates or erythema. Uvula midline. Neck: Supple. Full ROM. No lymphadenopathy. Cardiovascular: Regular rate. Regular rhythm. S1, S2 regular. Distal pulses are 2+ and symmetric. Pulmonary/Chest: +hypoxic. +Soft rales at the bases bilaterally. Speaking in full sentences. No wheezing. Abdominal: Soft and non-distended. There is no tenderness. No rebound, guarding or rigidity. No organomegaly. No palpable masses. Good bowel sounds. Back: No CVA tenderness. Musculoskeletal: 3+ pitting edema in the lower extremities bilaterally. No cyanosis. No clubbing. Full range of motion in all extremities. Nocalf tenderness. Radial/pedal pulses are intact and 2+ bilaterally Skin: Skin is warm and dry. No petechiae. No purpura. Neurological: Alert and oriented to person, place, and time. Cranial nerves II -XII are grossly intact. Normal speech. Strength is grossly symmetric. No sensory deficits. Psychiatric: Good eye contact. Normal interaction, affect and behavior. <Keeley Jimenez - Last Filed: 11/30/16 10:30> Heart Score/ECG Review - ECG Intrepretation Comment:: 11/30/16 10:21 sinus bronson at 55 w 1st degree av block, low voltage EKG, no acute st/t wave findings <Jessi Taylor - Last Filed: 11/30/16 10:43> ED Treatment Course - LABORATORY CBC & Chemistry Diagram: 11/30/16 10:00 11/30/16 10:00 - Medications Given in the ED: ED Medications Discontinued Medications Generic Name Dose Route Start Last Admin Trade Name Rafaelq PRN Reason Stop Dose Admin Furosemide 40 mg 11/30/16 09:40 11/30/16 09:50 Lasix Injection - IVPUSH 11/30/16 09:41 40 mg ONCE ONE Administration <Keeley Jimenez - Last Filed: 11/30/16 10:30> - LABORATORY CBC & Chemistry Diagram: 11/30/16 10:00 11/30/16 10:00 <Jessi Taylor - Last Filed: 11/30/16 10:43> Medical Decision Making - Medical Decision Making 11/30/16 10:[address] Jensen @10:27am. Awaiting call back. <Keeley Jimenez - Last Filed: 11/30/16 10:30> - Critical Care Time Total Critical Care Time (minutes): 45 Critical Care Statement: The care of this patient involved high complexity decision making to prevent further life threatening deterioration of the patient 's condition and/or to evaluate & treat vital organ system(s) failure or risk of failure. - Medical Decision Making 11/30/16 10:22 a/p: 71yo male on CPAP from home with LE edema and rales -suspect new onset acute CHF -cxr -bipap -abg -ekg -lasix, (given nitro by medics service captain) -monitor, pulse ox -call to cardio - gitig -Dr. Faustin admits to [facility] -will need tele admission for chf exacerbation -labs, trop 11/30/16 10:38 case discussed with the medicine resident, accepts admission under Dr. Tiot cohen updated on xray results, pt with sat now 99% bipap 12/6 ekg sinus bronson -no resp distress or hypoxemia at this time. 11/30/16 10:[address] Gillis, accepts pt to ICU. <Jessi Taylor - Last Filed: 11/30/16 10:43> *DC/Admit/Observation/Transfer <Keeley Jimenez - Last Filed: 11/30/16 10:30> - Discharge Dispostion Admit: Yes - Attestations Physician Attestion: 11/30/16 10:42 I, Dr. Jessi Taylor, DO, attest that this document has been prepared under my direction and personally reviewed by me in its entirety. I further attest, that it accurately reflects all work, treatment, procedures and medical decision -making performed by me. <Jessi Taylor - Last Filed: 11/30/16 10:43> Diagnosis at time of Disposition: Pulmonary edema, Hypoxia - Discharge Dispostion Condition at time of disposition: Critical - Referrals Referrals: Jhonatan Faustin MD [Primary Care Provider] -
[2016-11-30] MEDS ORDERED: FUROSEMIDE 40 MG/4 ML INJECTABLE VIAL IVPUSH ONE ×2 (09:40→15:17)
[2016-11-30] MEDS ORDERED: FUROSEMIDE 40 MG/4 ML INJECTABLE VIAL ONE ×2 (10:10→17:22)
[2016-11-30 10:27] LABS: EOSINOPHIL 2.4 % (0-4.5); MCH 28.8 pg (25.7-33.7); MCHC 32.7 g/dl (32.0-35.9); MEAN CELL VOLUME 88.1 fl (80-96); MEAN PLT VOLUME 6.8 fl (7.5-11.1); NEUTROPHILS 86.4 % (42.8-82.8); PLATELET COUNT 276 K/MM3 (134-434); WHITE BLOOD COUNT 9.7 K/mm3 (4.0-10.0)
[2016-11-30 10:30] LABS: ARTERIAL BLD GAS O2 SATURATION 99.1 % (90-98.9); ARTERIAL BLOOD GAS BASE EXCESS 1.9 meq/l (-2-2); ARTERIAL BLOOD GAS HCO3 26.3 meq/L (22-26)
[2016-11-30 10:34] LABS: ALLENS TEST POSITIVE; ART PUNCT SITE RIGHT RADIAL
[2016-11-30 10:35] LABS: LPM/O2% 60; PT. ON O2? YES
[2016-11-30 10:38] LABS: INR 1.15 (0.82-1.09); PROTHROMBIN TIME (PATIENT) 12.7 SEC (9.98-11.88)
[2016-11-30 10:38] LABS: ARTERIAL BLOOD GAS pH 7.41 (7.35-7.45)
[2016-11-30 10:40] LABS: METHEMOGLOBIN 0.5 % (0.4-1.5)
[2016-11-30 10:41] LABS: ACTIVATED PTT 30.4 SECONDS (26.9-34.4)
--- NOTE | 2016-11-30 11:09 | HP ---
CHIEF COMPLAINT: sob PCP: HISTORY OF PRESENT ILLNESS: This is a 71 year old male ER course was notable for: (1) (2) (3) Recent Travel: PAST MEDICAL HISTORY: PAST SURGICAL HISTORY: Social History: Smoking: Alcohol: Drugs: Family History: Allergies Sulfa (Sulfonamide Antibiotics) Allergy (Unknown, Verified 11/30/16 10:29) HOME MEDICATIONS: Home Medications Medication Instructions Recorded Pantoprazole Sodium [Protonix -] 40 mg PO DAILY #30 tab 08/11/16 Cholecalciferol (Vitamin D3) 2,000 unit PO ASDIR tablet 08/17/16 [Vitamin D3] Zolpidem Tartrate [Ambien] 10 mg PO HS 10/22/16 Losartan Potassium [Cozaar -] 50 mg PO DAILY 11/04/16 REVIEW OF SYSTEMS CONSTITUTIONAL: Absent: fever, chills, diaphoresis, generalized weakness, malaise, loss of appetite, weight change HEENT: Absent: rhinorrhea, nasal congestion, throat pain, throat swelling, difficulty swallowing, mouth swelling, ear pain, eye pain, visual changes CARDIOVASCULAR: Absent: chest pain, syncope, palpitations, irregular heart rate, lightheadedness , peripheral edema RESPIRATORY: Absent: cough, shortness of breath, dyspnea with exertion, orthopnea, wheezing, stridor, hemoptysis GASTROINTESTINAL: Absent: abdominal pain, abdominal distension, nausea, vomiting, diarrhea, constipation, melena, hematochezia GENITOURINARY: Absent: dysuria, frequency, urgency, hesitancy, hematuria, flank pain, genital pain MUSCULOSKELETAL: Absent: myalgia, arthralgia, joint swelling, back pain, neck pain SKIN: Absent: rash, itching, pallor HEMATOLOGIC/IMMUNOLOGIC: Absent: easy bleeding, easy bruising, lymphadenopathy, frequent infections ENDOCRINE: Absent: unexplained weight gain, unexplained weight loss, heat intolerance, cold intolerance NEUROLOGIC: Absent: headache, focal weakness or paresthesias, dizziness, unsteady gait, seizure, mental status changes, bladder or bowel incontinence PSYCHIATRIC: Absent: anxiety, depression, suicidal or homicidal ideation, hallucinations. PHYSICAL EXAMINATION Vital Signs - 24 hr 11/30/16 11/30/16 11/30/16 09:38 09:51 10:20 Temperature Pulse Rate 66 60 Respiratory 26 H Rate Blood Pressure 113/99 O2 Sat by Pulse 89 L 98 99 Oximetry (%) 11/30/16 10:32 Temperature 97.7 F Pulse Rate Respiratory Rate Blood Pressure O2 Sat by Pulse Oximetry (%) GENERAL: Awake, alert, and fully oriented, in no acute distress. HEAD: Normal with no signs of trauma. EYES: Pupils equal, round and reactive to light, extraocular movements intact, sclera anicteric, conjunctiva clear. No lid lag. EARS, NOSE, THROAT: Ears normal, nares patent, oropharynx clear without exudates. Moist mucous membranes. NECK: Normal range of motion, supple without lymphadenopathy, JVD, or masses. LUNGS: Breath sounds equal, clear to auscultation bilaterally. No wheezes, and no crackles. No accessory muscle use. HEART: Regular rate and rhythm, normal S1 and S2 without murmur, rub or gallop. ABDOMEN: Soft, nontender, not distended, normoactive bowel sounds, no guarding, no rebound, no masses. No hepatomegaly or splenomegaly. MUSCULOSKELETAL: Normal range of motion at all joints. No bony deformities or tenderness. No CVA tenderness. UPPER EXTREMITIES: 2+ pulses, warm, well-perfused. No cyanosis. No clubbing. No peripheral edema. LOWER EXTREMITIES: 2+ pulses, warm, well-perfused. No calf tenderness. No peripheral edema. NEUROLOGICAL: Cranial nerves II-XII intact. Normal speech. Normal gait. PSYCHIATRIC: Cooperative. Good eye contact. Appropriate mood and affect. SKIN: Warm, dry, normal turgor, no rashes or lesions noted, normal capillary refill. Laboratory Results - last 24 hr 11/30/16 11/30/16 11/30/16 10:00 10:00 10:00 WBC 9.7 RBC 4.33 Hgb 12.5 D Hct 38.2 MCV 88.1 MCH 28.8 MCHC 32.7 RDW 16.0 H Plt Count 276 D MPV 6.8 L D Neutrophils % 86.4 H Lymphocytes % 5.9 L D Monocytes % 4.3 Eosinophils % 2.4 Basophils % 1.0 PT with INR 12.70 H INR 1.15 H PTT (Actin FS) 30.4 Puncture Site ABG pH ABG pCO2 at Pt Temp ABG pO2 at Pt Temp ABG HCO3 ABG O2 Sat (Measured) ABG O2 Content ABG Base Excess Redd Test Carboxyhemoglobin Methemoglobin O2 Delivery Device Oxygen Flow Rate PEEP Sodium Cancelled Potassium Cancelled Chloride Cancelled Carbon Dioxide Cancelled Anion Gap Cancelled BUN Cancelled Creatinine Cancelled Creat Clearance w eGFR Cancelled Random Glucose Cancelled Calcium Cancelled Magnesium Cancelled Total Bilirubin Cancelled AST Cancelled ALT Cancelled Alkaline Phosphatase Cancelled Creatine Kinase Cancelled Troponin I Cancelled Total Protein Cancelled Albumin Cancelled 11/30/16 11/30/16 10:20 10:20 WBC RBC Hgb Hct MCV MCH MCHC RDW Plt Count MPV Neutrophils % Lymphocytes % Monocytes % Eosinophils % Basophils % PT with INR INR PTT (Actin FS) Puncture Site Right radial ABG pH 7.41 ABG pCO2 at Pt Temp 42.8 ABG pO2 at Pt Temp 119.0 H ABG HCO3 26.3 H ABG O2 Sat (Measured) 99.1 H ABG O2 Content 16.4 ABG Base Excess 1.9 Redd Test Positive Carboxyhemoglobin 2.2 H Methemoglobin 0.5 O2 Delivery Device Bipap 12/6 Oxygen Flow Rate 60 PEEP 0.0 Sodium Potassium Chloride Carbon Dioxide Anion Gap BUN Creatinine Creat Clearance w eGFR Random Glucose Calcium Magnesium Total Bilirubin AST ALT Alkaline Phosphatase Creatine Kinase Troponin I Total Protein Albumin ASSESSMENT/PLAN:
[2016-11-30 11:18] LABS: ALBUMIN 3.3 g/dl (3.4-5.0); ANION GAP 7 (8-16); BILIRUBIN,TOTAL 0.8 mg/dL (0.2-1.0); CALCIUM 8.9 mg/dL (8.5-10.1); CO2 28 mmol/L (21-32); CREATININE 1.5 mg/dL (0.7-1.3); GLUCOSE,RANDOM 96 mg/dL (74-106); MAGNESIUM 2.2 mg/dL (1.8-2.4); SGOT/AST 16 U/L (15-37); SGPT/ALT 24 U/L (12-78)
[2016-11-30 11:21] LABS: ALK PHOS 109 U/L (45-117); CPK 78 IU/L (39-308); TROPONIN I < 0.02 ng/ml (0.00-0.05)
--- NOTE | 2016-11-30 12:01 | EKG ---
Test Reason : Blood Pressure : / mmHG Vent. Rate : 055 BPM Atrial Rate : 055 BPM P-R Int : 212 ms QRS Dur : 076 ms QT Int : 456 ms P-R-T Axes : 027 025 042 degrees QTc Int : 436 ms SINUS BRADYCARDIA WITH 1ST DEGREE A-V BLOCK LOW VOLTAGE QRS WHEN COMPARED WITH ECG OF 04-NOV-2016 10:36, NO SIGNIFICANT CHANGE WAS FOUND Confirmed by KYLE TREVIZO MD ([id number]) on 11/30/2016 12:01:36 PM Referred By: Confirmed By:KYLE TREVIZO MD
[2016-11-30 13:50] VITALS: BMI 47.6
--- NOTE | 2016-11-30 13:56 | HP ---
CHIEF COMPLAINT: sob PCP: Dr. Leo HISTORY OF PRESENT ILLNESS: 71 year old male with a past medical history of morbid obesity, OSMAN, vertigo, HTN, HLD, CKD, gastritis, severe psoriasis, brought to the ER by ambulance due to severe shortness of breath and progressive bilateral leg swelling. Patient states he noticed his symptoms three days ago, although this morning he was only able to take two steps out of bed, which provoked him to come to the ER. En route patient was found to be hypoxic with a oxygen saturation of 82, he was put on CPAP. Mr. Martinez states that he has gained 20lbs over the past month, due to poor eating habits and sedentary lifestyle. Patient uses a motorized scooter mostly to get around. He uses three pillows at night to sleep. He also states that he was on a thiazide diuretic that he was told to stop taking due to dehydration. He did no start lasix rec. by drier attendant. Patient also endorsed that his psoriasis is worsening especially around his abdomen. He denies chest pain, LANG, blurry vision, cough, fever, abdominal pain ER course notable for CXR showing bilateral effusions, He was given lasix 40mg IVP x2. ECG bradycardia with 1st degree AV block and low voltage; unchanged form previous. Recent Travel: no PAST MEDICAL HISTORY: as above PAST SURGICAL HISTORY: Social History: Smoking:quit 20 years ago Alcohol:no Drugs: no Family History: Allergies Sulfa (Sulfonamide Antibiotics) Allergy (Unknown, Verified 11/30/16 10:29) HOME MEDICATIONS: Home Medications Medication Instructions Recorded Pantoprazole Sodium [Protonix -] 40 mg PO DAILY #30 tab 08/11/16 Cholecalciferol (Vitamin D3) 2,000 unit PO ASDIR tablet 08/17/16 [Vitamin D3] Zolpidem Tartrate [Ambien] 10 mg PO HS 10/22/16 Losartan Potassium [Cozaar -] 50 mg PO DAILY 11/04/16 REVIEW OF SYSTEMS CONSTITUTIONAL: Positive: 20ln weight gain over the past month Absent: fever, chills, diaphoresis, generalized weakness, malaise, loss of appetite, weight change HEENT: Absent: rhinorrhea, nasal congestion, throat pain, throat swelling, difficulty swallowing, mouth swelling, ear pain, eye pain, visual changes CARDIOVASCULAR: Positive: peripheral edema Absent: chest pain, syncope, palpitations, irregular heart rate, lightheadedness , peripheral edema RESPIRATORY: Positive: shortness of breath, dyspnea with exertion, orthopnea Absent: cough, , wheezing, stridor, hemoptysis GASTROINTESTINAL: Absent: abdominal pain, abdominal distension, nausea, vomiting, diarrhea, constipation, melena, hematochezia GENITOURINARY: Absent: dysuria, frequency, urgency, hesitancy, hematuria, flank pain, genital pain MUSCULOSKELETAL: Absent: myalgia, arthralgia, joint swelling, back pain, neck pain SKIN: Absent: rash, itching, pallor HEMATOLOGIC/IMMUNOLOGIC: Absent: easy bleeding, easy bruising, lymphadenopathy, frequent infections ENDOCRINE: Absent: unexplained weight gain, unexplained weight loss, heat intolerance, cold intolerance NEUROLOGIC: Absent: headache, focal weakness or paresthesias, dizziness, unsteady gait, seizure, mental status changes, bladder or bowel incontinence PSYCHIATRIC: Absent: anxiety, depression, suicidal or homicidal ideation, hallucinations. PHYSICAL EXAMINATION Vital Signs - 24 hr 11/30/16 11/30/16 11:37 13:45 Temperature 97.3 F L Pulse Rate 53 L Pulse Rate [ 57 L Left] Respiratory 21 25 H Rate Blood Pressure 138/72 Blood Pressure 125/62 [Left Arm] O2 Sat by Pulse 100 Oximetry (%) GENERAL: Morbidly obese, sitting up in bed on bipap, Awake, alert, and fully oriented, in no acute distress. HEAD: Normal with no signs of trauma. EYES: Pupils equal, round and reactive to light, extraocular movements intact, sclera anicteric, conjunctiva clear. No lid lag. NECK: Normal range of motion, supple without lymphadenopathy, JVD, or masses. LUNGS: Breath sounds equal decreased, clear to auscultation bilaterally. No wheezes, and no crackles. No accessory muscle use. HEART: distant heart sounds, Regular rate and rhythm, normal S1 and S2 without murmur, rub or gallop. ABDOMEN: obese, Soft, nontender, very large area of erythema bilateral lower quadrants and pelvic area with silver scaling plaques, warm to touch MUSCULOSKELETAL: Normal range of motion at all joints. No bony deformities or tenderness. No CVA tenderness. UPPER EXTREMITIES: 2+ pulses, warm, well-perfused. No cyanosis. No clubbing. No peripheral edema. LOWER EXTREMITIES: 2+ pulses, warm, well-perfused. No calf tenderness. bilateral chronic edema with weeping areas with silver scaling plaques, scattered scabbed over and open small areas of skin breakdown, NEUROLOGICAL: Cranial nerves II-XII intact. Normal speech. PSYCHIATRIC: Cooperative. Good eye contact. Appropriate mood and affect. SKIN: Warm, dry, normal turgor, no rashes or lesions noted, normal capillary refill. as above; silver plaque areas of psoriasis on bilateral legs and abdomen ASSESSMENT/PLAN: This is a 71 year old morbidly obese male with a medical history of hypertension , hyperlipidemia, severe psoriasis, presents tot he emergency room short of breath with worsening edema. Rule out cardiac and pulmonary etiology. #acute hypoxic respiratory failure most likely secondary to HFpEF rule out other etiology including COPD, PNA -cont bipap, abg -echo showing preserved EF and dilated LA -lasix 40mg IVP bod -strict I/O, daily weights -pulmonary function test -repeat CXR -sleep study as outpatient -if does not improve with current treatment consider CTA to rule out PE -bronchodilators prn; steroids if worsen -cardio consult -pulm consult #bilateral leg edema secondary to chronic stasis dermatitis , chf, r/o dvt -wound care -diuretic -duplex #Chronic kidney disease: -Cr 1.5 at baseline #hypertension: -losartan 50mg po daily -atenolol #severe psoriasis : -apply home cream; -monitor abdomen for cellulitis; major areas of erythema, warmth #morbid obesity: -consider nutrition consult FEN: Fluid: restrict Electrolytes : wnl Diet: low sodium VTE prophylaxis: heparin sq GI prophylaxis: protonix Disposition: cont ICU monitoring Problem List - Problem (1) Hypoxia Code(s): R09.02 - HYPOXEMIA (2) Pulmonary edema Code(s): J81.1 - CHRONIC PULMONARY EDEMA (3) Morbid obesity Code(s): E66.01 - MORBID (SEVERE) OBESITY DUE TO EXCESS CALORIES (4) Psoriasis Code(s): L40.9 - PSORIASIS, UNSPECIFIED (5) CKD (chronic kidney disease) Code(s): N18.9 - CHRONIC KIDNEY DISEASE, UNSPECIFIED Visit type - Emergency Visit Emergency Visit: Yes ED Registration Date: 11/30/16 Care time: The patient presented to the Emergency Department on the above date and was hospitalized for further evaluation of their emergent condition. - New Patient This patient is new to me today: Yes Date on this admission: 11/30/16 - Critical Care Critical Care patient: Yes Total Critical Care Time (in minutes): 40 Critical Care Statement: The care of this patient involved high complexity decision making to prevent further life threatening deterioration of the patient 's condition and/or to evaluate & treat vital organ system(s) failure or risk of failure.
[2016-11-30] MEDS ORDERED: CHOLECALCIFEROL (VITAMIN D3) 1,000 UNIT TABLET (FP) PO SCH (14:41)
--- NOTE | 2016-11-30 15:09 | CONSULT ---
Consult Consult Specialty:: PULM/CCM Referred by:: JOSE Reason for Consultation:: CHF / SOB - History of Present Illness Chief Complaint: SOB History of Present Illness: 71 M, HTN, CHF, OSAS, psoriasis, peripheral neuropathy, and renal insufficiency. Admitted via the ER due to progressive edema and SOB that has worsened over the past 3 days. Apparent almost 20 pound weight gain in the last month. No travel history or sick contacts. No overt fever or chills. No hemoptysis. No night sweats. Due to severe respiratory distress and hypoxemia he required NIPPV support. CXR : bilateral pleural effusion with increased vascular markings. - History Source History Provided By: Patient, Medical Record Limitations to Obtaining History: No Limitations - Past Medical History Pulmonary: Yes: Sleep Apnea. No: Asthma, O2 Dependent, Previously Intubated, Pulmonary Embolus - Alcohol/Substance Use Hx Alcohol Use: No - Smoking History Smoking history: Former smoker Have you smoked in the past 12 months: No Aproximately how many cigarettes per day: 0 If you are a former smoker, when did you quit?: 1989 Home Medications - Allergies Allergies/Adverse Reactions: Allergies Allergy/AdvReac Type Severity Reaction Status Date / Time Sulfa (Sulfonamide Allergy Unknown Verified 11/30/16 10:29 Antibiotics) - Home Medications Home Medications: Ambulatory Orders Pantoprazole Sodium [Protonix -] 40 mg PO DAILY #30 tab 08/11/16 Cholecalciferol (Vitamin D3) [Vitamin D3] 2,000 unit PO ASDIR tablet 08/17/16 Zolpidem Tartrate [Ambien] 10 mg PO HS 10/22/16 Losartan Potassium [Cozaar -] 50 mg PO DAILY 11/04/16 Review of Systems - Review of Systems Constitutional: reports: Malaise. denies: Chills, Fever, Night Sweats, Unintentional Wgt. Loss Eyes: reports: No Symptoms HENT: reports: No Symptoms Neck: reports: No Symptoms Cardiovascular: reports: Edema, Shortness of Breath. denies: Chest Pain, Palpitations Respiratory: reports: Snoring, SOB, SOB on Exertion. denies: Cough, Hemoptysis , Wheezing Gastrointestinal: reports: No Symptoms Genitourinary: reports: No Symptoms Breasts: reports: No Symptoms Reported Musculoskeletal: reports: No Symptoms Integumentary: reports: No Symptoms Neurological: reports: No Symptoms Endocrine: reports: No Symptoms Hematology/Lymphatic: reports: No Symptoms Psychiatric: reports: No Symptoms Physical Exam Vital Signs: Vital Signs Temperature 97.3 F L 11/30/16 13:57 Pulse Rate 67 11/30/16 14:06 Respiratory Rate 25 H 11/30/16 13:57 Blood Pressure 138/72 11/30/16 13:57 O2 Sat by Pulse Oximetry (%) 100 11/30/16 14:06 Constitutional: Yes: Mild Distress, Obese Eyes: Yes: Conjunctiva Clear, EOM Intact HENT: Yes: Atraumatic, Normocephalic Neck: Yes: Supple, Trachea Midline Cardiovascular: Yes: Regular Rate and Rhythm Respiratory: Yes: Diminished, On BiPap, Poor Air Entry, Rales, Rhonchi, SOB. No : Accessory Muscle Use, Cough, Stridor, Wheezes Gastrointestinal: Yes: Normal Bowel Sounds, Soft, Abdomen, Obese ...Rectal Exam: Yes: Deferred Renal/: Yes: WNL Breast(s): Yes: WNL Musculoskeletal: Yes: WNL Extremities: Yes: WNL Edema: Yes Peripheral Pulses WNL: Yes Integumentary: Yes: WNL Neurological: Yes: WNL, Alert, Oriented ...Motor Strength: WNL Psychiatric: Yes: WNL, Alert, Oriented Imaging - Results Chest X-ray: Report Reviewed, Image Reviewed Assessment/Plan IMP: Decompensated CHF Do not suspect PNA Most likely COPD but does not appear to be in bronchospasm OSAS HTN Psoriasis Peripheral Neuropathy PLAN: NIPPV support Lasix BID / Cozaar / Tenormin Monitor off ABX Daily weight Strict I & O BD TX PRN Monitor off Steroids Cardiac enzymes ECHO ICU monitoring Dr Gillis Critical care time spent in reviewing chart, evaluating patient and formulating plan - 36 minutes.
--- NOTE | 2016-11-30 15:49 | PN ---
Teaching Attending Note Name of Resident: Elly Farr ATTENDING PHYSICIAN STATEMENT I saw and evaluated the patient. I reviewed the resident's note and discussed the case with the resident. I agree with the resident's findings and plan as documented. SUBJECTIVE:71yo M with PMH morbid obesity, HTN, CKD, psorasis presented with progressively worsening SOB x3 days. worse when laying flat. unable to take more than a few steps. admits to increased salt intake (cheeses and polish meats). assoc with 15-20 lb weight gain. was also stopped off HCTZ over the summer which he was supposed to f/u with stopperer assembler to re-start which he never did. Denies CP, fever, chills, N/V/C/D when EMS arrived at the house pt was saturating 82% on RA and placed on bipap OBJECTIVE: Last Vital Signs Temp Pulse Resp BP Pulse Ox 97.3 F L 50 L 21 134/64 100 11/30/16 13:57 11/30/16 15:27 11/30/16 15:27 11/30/16 15:27 11/30/16 14:06 Intake & Output 11/27/16 11/28/16 11/29/16 11/30/16 23:59 23:59 23:59 23:59 Output Total 600 Balance -600 Weight 360 lb 14.4 oz General NAD CV S1 S2 RRR no murmur/rub/gallop no JVD Lungs decreased breath sounds B/L bases Abdomen soft NT/ND obese chronic psoriatic changes along lower abdominal wall Extremites chronic psoriatric changes B/L LE with 1+ pitting edema on the RLE trace on L. scattered erythema surrounding silver plaques, non tender no drainage or warmth ASSESSMENT AND PLAN: 71yo M with PMH morbid obesity, HTN, CKD, psorasis presented with progressively worsening SOB x3 days 1. Acute respiratory distress-due to volume overload. accepted to MICU. currently saturating 100% on face mask. start lasix 40mg BID IVP. echo done and not showing any LV dysfunction or diastolic dysfunction. likely due to increased salt intake. trend cardiac enzymes. daily weights, strict I&O. cardio consulted. was encouraged by PMD to go for sleep study in the past which he refused. 2. RLE swelling- check doppler to r/o DVT 3. Morbid obesity- counseled on need for lifestyle changes and dietary changes. as per family present at bedside, pt lives a very sedentary lifestyle and eats constantly through out the night, pt states he is unable to move or exercise due to psorasis. encouraged that with dietary changes he could still loose weight. not interested in Bariatric surgery 4. CKD- at baseline 1.5 5. HTN- controlled. monitor 6. DVT ppx- hep sq 7. plan d/w and son present at bedside. all questions answered. verbalized understanding and agreement with plan The care of this patient involved high complexity decision making to prevent further life threatening deterioration of the patient's condition and/or to evaluate & treat vital organ system(s) failure or risk of failure. 50 minutes
[2016-11-30] MEDS: HEPARIN NA (PORCINE) 5,000 UNITS/ML 1ML VIAL SQ SCH ×2 (17:23→21:59)
--- NOTE | 2016-11-30 17:32 | CONSULT ---
Consult Consult Specialty:: critical care - History of Present Illness History of Present Illness: 71yo man, former smoker, with PMH of psoriasis/peripheral neuropathy, CKD, HTN, suspected CHF who was BIBEMS after worsening dyspnea at rest, orthopnea, and lower extremity swelling for the past 3 days. Over the past month the patient was medication/diet non-compliant (stopped HCTZ, eating salty foods), and reports an approx 20lbs. weight gain. He denies any recent travel, sick contacts. Denies chest pain, chest pressure, or tightness. No cough, fever/ chills, n/v. In the ED, his VS were T 97.7, BP 113/99, HR 66, RR 26, pSaO2 88% on RA. CXR was notable for bilateral pleural effusions and vascular congestion. He was placed on BIPAP then Venturi Mask 50% with improved oxygenation. - History Source History Provided By: Patient, Medical Record Limitations to Obtaining History: No Limitations - Past Medical History Cardio/Vascular: Yes: HTN Pulmonary: Yes: Sleep Apnea. No: Asthma, O2 Dependent, Previously Intubated, Pulmonary Embolus Rheumatology: Yes: Other (psoriasis) - Alcohol/Substance Use Hx Alcohol Use: No - Smoking History Smoking history: Former smoker Have you smoked in the past 12 months: No Aproximately how many cigarettes per day: 0 If you are a former smoker, when did you quit?: 1989 Home Medications - Allergies Allergies/Adverse Reactions: Allergies Allergy/AdvReac Type Severity Reaction Status Date / Time Sulfa (Sulfonamide Allergy Unknown Verified 11/30/16 10:29 Antibiotics) - Home Medications Home Medications: Ambulatory Orders Pantoprazole Sodium [Protonix -] 40 mg PO DAILY #30 tab 08/11/16 Cholecalciferol (Vitamin D3) [Vitamin D3] 2,000 unit PO ASDIR tablet 08/17/16 Zolpidem Tartrate [Ambien] 10 mg PO HS 10/22/16 Losartan Potassium [Cozaar -] 50 mg PO DAILY 11/04/16 Review of Systems - Review of Systems Constitutional: reports: Malaise Cardiovascular: denies: Chest Pain, Palpitations Respiratory: reports: Orthopnea, Snoring, SOB, SOB on Exertion Physical Exam Vital Signs: Vital Signs Temperature 97.3 F L 11/30/16 13:57 Pulse Rate 50 L 11/30/16 15:27 Respiratory Rate 21 11/30/16 15:27 Blood Pressure 134/64 11/30/16 15:27 O2 Sat by Pulse Oximetry (%) 100 11/30/16 15:00 Constitutional: Yes: No Distress, Calm, Obese Eyes: Yes: Conjunctiva Clear. No: Sclera Icterus Neck: Yes: Supple. No: Tenderness Cardiovascular: Yes: Regular Rate and Rhythm, Other (distant heart sounds). No : Gallop, Murmur Respiratory: Yes: On Venti-Mask, Poor Air Entry, Other (b/l rales) Gastrointestinal: Yes: Soft, Abdomen, Obese. No: Tenderness Edema: Yes Edema: LLE: 2+, RLE: 2+ Peripheral Pulses WNL: Yes Labs: 11/30/16 11/30/16 11/30/16 10:00 10:00 10:00 WBC 9.7 RBC 4.33 Hgb 12.5 D Hct 38.2 MCV 88.1 MCHC 32.7 RDW 16.0 H Plt Count 276 D Neutrophils % 86.4 H Lymphocytes % 5.9 L D Monocytes % 4.3 Eosinophils % 2.4 Basophils % 1.0 11/30/16 10:00 Sodium 138 Potassium 4.1 Chloride 103 Carbon Dioxide 28 Anion Gap 7 L BUN 17 D Creatinine 1.5 H D Troponin, BNP 11/30/16 11/30/16 11/30/16 10:00 10:00 15:40 Troponin I Cancelled < 0.02 < 0.02 B-Natriuretic Peptide 1502.79 H Laboratory Tests 11/30/16 11/30/16 10:00 15:40 PT with INR 12.70 H INR 1.15 H PTT (Actin FS) 30.4 D-Dimer 297 H 11/30/16 16:45 MRSA Screen - Pending Nares - Mrsa Screen - Left 11/30/16 16:45 MRSA Screen - Pending Nares - Mrsa Screen - Right Imaging - Results Chest X-ray: Report Reviewed, Image Reviewed, Other (Noted above.) Assessment/Plan 71yo man with PMH of psoriasis/peripheral neuropathy, HTN, OSMAN, CHF who presents with dyspnea and LE edema likely due to acute CHF decompensation in the setting of diet and medication non-compliance. There is low pre-test probability of PE in this patient, and d-dimer levels are low (297), further ruling it out. Patient's breathing is improved after 40mg lasix and NIPPV support. Low suspicion for infectious etiology as the patient is afebrile without leukocytosis, and will monitor off antibiotics. #decompensated CHF -Cardiology consulted (Dr. Jensen) -NIPPV support to maintain SpaO2 >90% -lasix 40mg PO BID -f/u cardiac enzymes -f/u lipid profile -f/u ECHO #LE edema -ultrasound doppler to r/o DVT #CKD -Daily weights -Strict I&Os -continue home cholecalciferol #HTN -Continue atenolol 25mg PO daily -Continue losartan 50mg PO daily #HLD -continue rosuvastatin 20mg PO HS #suspected COPD -duo neb q6h PRN #FEN -No IVF -lytes wnl -Na controlled diet, Fluid restrict 1L/day #PPX -DVT with heparin 5000U SQ TID -GI - not indicated d/w Dr. Carlin Nieves MD PGY-1 Visit type - Emergency Visit Emergency Visit: No - New Patient This patient is new to me today: Yes Date on this admission: 11/30/16 - Critical Care Critical Care patient: Yes Total Critical Care Time (in minutes): 35 Critical Care Statement: The care of this patient involved high complexity decision making to prevent further life threatening deterioration of the patient 's condition and/or to evaluate & treat vital organ system(s) failure or risk of failure.
[2016-11-30] MEDS ORDERED: ROSUVASTATIN CA 20 MG TABLET (FP) PO SCH (20:00)
[2016-11-30] MEDS ORDERED: ALBUTEROL SO4 2.5/IPRATROPIUM 0.5 INH SOL 3 ML VIAL.NEB. NEB PRN (20:58)
[2016-11-30] MEDS ORDERED: CHLORHEXIDINE GLUCONATE 4% CLEANSER FOR DECOLONIZATION TP SCH (22:00)
--- NOTE | 2016-11-30 22:25 | CON.CARD ---
Cardiology Consult (text) - Consultation Consultation Note: CC: sob 71 yo with h/o HTN, HLD, chronic venous stasis changes/LE edema, morbid obesity , presumed LISA, vertigo, CKD, gastritis, severe psoriasis, neuropathy p/w sob. States a few weeks ago he had HCTZ held for volume depletion. Over the past week has noted progressive bilateral leg and abdominal swelling. At baseline is very sedentary and sits in a chair most of the day and uses a motorized scooter outside of the home. Chronic [place]. Today with acute worsening of sob/respiratory distress, orthopnea. Per report, EMS noted patient to be hypoxic with a oxygen saturation of 82. Sx's improved with bipap and lasix. Is now breathing comfortably on face mask. baseline three pillow orthopnea. chronic psoriatic lesions on LE in addition to venous stasis changes with erythema/bullae. He denies chest pain, palps, dizziness, bleeding, transient neurologic sx's. denies LANG, blurry vision, cough, congestion, f/c/s, n/v/d,. + rash from psoriasis. pmhx/pshx: per hpi Social History: Smoking:quit 20 years ago Alcohol:no Drugs: no fami hx: father SC 53 ros : per hpi Ambulatory Orders Pantoprazole Sodium [Protonix -] 40 mg PO DAILY #30 tab 08/11/16 Cholecalciferol (Vitamin D3) [Vitamin D3] 2,000 unit PO ASDIR tablet 08/17/16 Zolpidem Tartrate [Ambien] 10 mg PO HS 10/22/16 Losartan Potassium [Cozaar -] 50 mg PO DAILY 11/04/16 Current Medications Albuterol/Ipratropium (Duoneb -) 1 amp NEB Q6H PRN PRN Reason: SHORTNESS OF BREATH Allopurinol (Zyloprim -) 300 mg PO DAILY [facility] Atenolol (Tenormin -) 25 mg PO DAILY [facility] Chlorhexidine Gluconate (Hibiclens For Decolonization -) 1 applic TP HS [facility] Last Admin: 11/30/16 22:01 Dose: 1 applic Cholecalciferol (Vitamin D3 -) 2,000 unit PO DAILY [facility] Furosemide (Lasix Injection -) 40 mg IVPUSH BIDLASIX [facility] Heparin Sodium (Porcine) (Heparin -) 5,000 unit SQ TID [facility] Last Admin: 11/30/16 21:59 Dose: 5,000 unit Losartan Potassium (Cozaar -) 50 mg PO DAILY [facility] Mupirocin (Bactroban Ointment (For Decolonization) -) 1 applic NS BID [facility] Stop: 12/05/16 21:59 Rosuvastatin Calcium (Crestor -) 20 mg PO DAILY@1999 [facility] Vital Signs - 24 hr 11/30/16 11/30/16 11/30/16 09:38 09:51 10:20 Temperature Pulse Rate 66 60 Pulse Rate [ Left] Respiratory 26 H Rate Blood Pressure 113/99 Blood Pressure [Left Arm] O2 Sat by Pulse 89 L 98 99 Oximetry (%) 11/30/16 11/30/16 11/30/16 10:32 11:37 13:40 Temperature 97.7 F Pulse Rate Pulse Rate [ 57 L Left] Respiratory 21 Rate Blood Pressure Blood Pressure 125/62 [Left Arm] O2 Sat by Pulse 100 100 Oximetry (%) 11/30/16 11/30/16 11/30/16 13:45 13:55 13:57 Temperature 97.3 F L 97.3 F L Pulse Rate 53 L 53 L Pulse Rate [ Left] Respiratory 25 H 25 H Rate Blood Pressure 138/72 138/72 Blood Pressure [Left Arm] O2 Sat by Pulse 100 Oximetry (%) 11/30/16 11/30/16 11/30/16 14:06 15:00 15:27 Temperature Pulse Rate 67 50 L Pulse Rate [ Left] Respiratory 21 Rate Blood Pressure 134/64 Blood Pressure [Left Arm] O2 Sat by Pulse 100 100 Oximetry (%) 11/30/16 11/30/16 17:16 18:25 Temperature Pulse Rate 54 L 56 L Pulse Rate [ Left] Respiratory 22 Rate Blood Pressure 140/65 Blood Pressure [Left Arm] O2 Sat by Pulse 97 Oximetry (%) Intake & Output 11/28/16 11/29/16 11/30/16 12/01/16 07:59 07:59 07:59 07:59 Intake Total 400 Output Total 1650 Balance -1250 Weight 360 lb 14.4 oz nad, calm jvd elevated, neck supple bibasilar crackles/dullness, nl effort rrr nl s1, s2 2/6 murmur at sternal border + bs soft nt nd, obese + chronic venous stasis changes with bullae/ulcerations and skin thickening 1+ edema + dp/pt [id number] no jaundice, diaphoresis no carotid bruits CBC, BMP 11/30/16 10:00 Laboratory Tests 08/10/16 11/30/16 11/30/16 21:30 10:00 10:00 INR 1.15 H D-Dimer ABG pH ABG pCO2 at Pt Temp ABG pO2 at Pt Temp ABG HCO3 Magnesium 2.2 Total Bilirubin 0.8 AST 16 ALT 24 D Alkaline Phosphatase 109 Troponin I < 0.02 B-Natriuretic Peptide 540.53 H 1502.79 H Albumin 3.3 L 11/30/16 11/30/16 11/30/16 10:20 15:40 15:40 INR D-Dimer 297 H ABG pH 7.41 ABG pCO2 at Pt Temp 42.8 ABG pO2 at Pt Temp 119.0 H ABG HCO3 26.3 H Magnesium Total Bilirubin AST ALT Alkaline Phosphatase Troponin I < 0.02 B-Natriuretic Peptide Albumin ekg 11/30: sb 55 bpm, av delay. low voltage qrs. baseline artifact which does not march out (low suspicion for underlying atrial activity/arrhythmia). poor r wave progression. non-specific t wave ab. tele: artifact, sr/sb. cxr 11/30: mild bibasilar atelectasis without focal infiltrates. (By my review of images --> + congestion with fluid in fissures. poor penetration of costrophrenic angles vs. bilateral pleural effusion). echo 11/2016: tds. nl lv fn. nl rv size, nl rv size/fn. mod lae. mild-mod mac. 1+ as. Echo 09/09: very TDS; nl LV/overall LVEF; diast fxn not assessed. RV not well seen; mod LAE; valves tds but no abn seen MPI ([place]): TDS: no STs; patchy uptake diffusely on rest and stress; diaphragm and lateral chest wall adipose attenuation seen; small apical ischemia and ? mid inferolateral/basal lateral wall ischemia; nl EF; no LVE/TID abnormalities may be related to artifact/body habitus. 71 yo with h/o HTN, HLD, chronic venous stasis changes/LE edema, morbid obesity , presumed LISA, vertigo, CKD, gastritis, severe psoriasis, neuropathy p/w sob. respiratory distress likely 2/2 acute diastolic heart failure exacerbation (new diagnosis). - ce's neg x 2, ekg without acute ischemic changes. no evidence of acs. - by my review + pulmonary edema no cxr. improved with bipap and lasix. - s/p lasix 40 mg IV x 2 today, reevaluate Cr tomorrow to adjust dosing. - will likely need lisa evaluation as outpatient. HTN - patient bradycardic, if persists would hold atenolol HL - con't statin Possible cad - RF's for cad. mild ischemia on stress (although may also be false + given body habitus/artifact) - cont statin, ok to hold asa while with recent gastritis. will defer to outpatient physicians regarding when to resume. > 40 min spent on patient care as well as extensive counseling of patient and family
[2016-11-30] MEDS: MUPIROCIN 2% TOPICAL OINTMENT FOR DECOLONIZATION NS SCH (22:27)
[2016-11-30] MEDS ORDERED: ZOLPIDEM TARTRATE 5 MG TABLET PO PRN (23:02)
[2016-12-01] MEDS: HEPARIN NA (PORCINE) 5,000 UNITS/ML 1ML VIAL SQ SCH ×3 (05:34→21:33)
[2016-12-01] MEDS ORDERED: FUROSEMIDE 40 MG/4 ML INJECTABLE VIAL IVPUSH SCH ×2 (06:00→10:00)
[2016-12-01 06:06] LABS: EOSINOPHIL 4.9 % (0-4.5); MCH 29.3 pg (25.7-33.7); MCHC 33.2 g/dl (32.0-35.9); MEAN CELL VOLUME 88.2 fl (80-96); MEAN PLT VOLUME 6.9 fl (7.5-11.1); NEUTROPHILS 78.6 % (42.8-82.8); PLATELET COUNT 234 K/MM3 (134-434); RDW 16.3 % (11.9-15.9); WHITE BLOOD COUNT 7.2 K/mm3 (4.0-10.0)
[2016-12-01 06:34] LABS: ALBUMIN 3.1 g/dl (3.4-5.0); ANION GAP 8 (8-16); CALCIUM 9.1 mg/dL (8.5-10.1); CO2 32 mmol/L (21-32); GLUCOSE,RANDOM 80 mg/dL (74-106); MAGNESIUM 2.2 mg/dL (1.8-2.4); PHOSPHOROUS 4.3 mg/dL (2.5-4.9)
[2016-12-01 06:46] LABS: ALK PHOS 104 U/L (45-117); BILIRUBIN,TOTAL 1.1 mg/dL (0.2-1.0); CREATININE 1.6 mg/dL (0.7-1.3); SGOT/AST 11 U/L (15-37); SGPT/ALT 19 U/L (12-78); THYROID STIMULATING HORMONE 1.16 uIU/ml (0.358-3.74); TOT PROT 6.4 g/dl (6.4-8.2)
--- NOTE | 2016-12-01 08:01 | PN ---
Progress Note (short form) - Note Progress Note: PULM / CCM Pt seen & examined in the ICU, 50% FiO2 via Venturi Mask O/N w/o issues. Pt breathing easy. Friendly. Talkative. Pt reports marked relief. ACTIVE MEDS Albuterol/Ipratropium (Duoneb -) 1 amp NEB Q6H PRN PRN Reason: SHORTNESS OF BREATH Allopurinol (Zyloprim -) 300 mg PO DAILY [facility] Atenolol (Tenormin -) 25 mg PO DAILY [facility] Chlorhexidine Gluconate (Hibiclens For Decolonization -) 1 applic TP HS [facility] Last Admin: 11/30/16 22:01 Dose: 1 applic Cholecalciferol (Vitamin D3 -) 2,000 unit PO DAILY [facility] Furosemide (Lasix Injection -) 40 mg IVPUSH BIDLASIX [facility] Last Admin: 12/01/16 05:34 Dose: 40 mg Heparin Sodium (Porcine) (Heparin -) 5,000 unit SQ TID [facility] Last Admin: 12/01/16 05:34 Dose: 5,000 unit Losartan Potassium (Cozaar -) 50 mg PO DAILY [facility] Mupirocin (Bactroban Ointment (For Decolonization) -) 1 applic NS BID [facility] Stop: 12/05/16 21:59 Last Admin: 11/30/16 22:27 Dose: 1 applic Rosuvastatin Calcium (Crestor -) 20 mg PO DAILY@1999 [facility] Last Admin: 11/30/16 22:26 Dose: 20 mg Zolpidem Tartrate (Ambien -) 5 mg PO HS PRN PRN Reason: INSOMNIA Last Admin: 11/30/16 23:28 Dose: 5 mg PE: V/S Temp 97.7 F 12/01/16 06:00 Pulse 49 L 12/01/16 06:00 Resp 20 12/01/16 06:00 BP 144/82 12/01/16 06:00 Pulse Ox 99 11/30/16 23:46 I's & O's 11/30/16 11/30/16 12/01/16 11:59 23:59 11:59 Intake Total 800 Output Total 3250 750 Balance -2450 -750 Weight 174.633 kg 163.701 kg 161.751 kg Intake: Oral 800 Output: Urine 3250 750 Void 3250 750 Other: Voiding Method Urinal Bowel Movement No No Height 6 ft 1 in 6 ft 1 in Body Mass Index (BMI) 50.8 47.6 Weight Measurement Method [facility] Measurement Method Est/Stated by Patient CBC, BMP 12/01/16 05:45 12/01/16 05:45 Troponin, BNP 11/30/16 11/30/16 11/30/16 10:00 10:00 15:40 Troponin I Cancelled < 0.02 < 0.02 B-Natriuretic Peptide 1502.79 H GEN: Elderly man in bed, CA+OX3, Friendly, [place], NAD HEENT: PERRL, an-icteric, mild JVD @ 45degrees, O-P Clear PULM: Diminished in the bases, breathing easy CV: nml S1 S2, RR, 2/6 murmur @ sternal border ABD: Grossly obese, + BS, S/S N/T N/D X4Q EXT: +2 pedal edema SKIN: LEs w/ chronic venous stasis changes with bullae/ulcerations and skin thickening BACK: Not rolled on this exam NEURO: VIRAMONTES, follows all, (-) focal deficit, CA+OX3 RECENT STUDIES TO NOTE: LE DUPLEX 11/30: NEGATIVE FOR DVT CXR 11/30: B/L pleural effusions w/ increased vascular markings. TTE 11/30: PENDING ASSESS: This is 71 y/o man w/ morbid obesity, OSMAN, HTN, HLD, CHF, chronic venous stasis changes/LE edema, CKD, gastritis, severe psoriasis admitted to the ICU for exacerb/o CHF in the setting of a diuretic holiday. PLAN: -Supp FiO2 for an SpO2 > 92% -Nocturnal NIPPV support -Duo neb q6h -Cont diuresis (Lasix 40 BID) -Trend BNP -F/u CXR -Strict I's & O's -Daily weights -Trend UOP -Trend BUN/Cr -Replete e-lytes prn -Cont Cozaar -Cont Crestor -CARDS (Dr. Jensen) -Cont home cholecalciferol -SQH -Trend Uric Acid & cont Allopurinol -Na+ controlled diet, Fluid restrict 1L/day -PT/OT (@ B/L pt is very sedentary and sits in a chair most of the day and uses a motorized scooter outside of the home) -No indication for GI PPX @ this time. -D/c Med Surg [facility] ICU 2433 PULM / CCM
[2016-12-01 09:30] LABS: CHOLESTEROL 101 mg/dL (50-200)
[2016-12-01] MEDS ORDERED: PT OWN MED DRAWER 7, Y5N ONE (09:59)
[2016-12-01] MEDS ORDERED: ATENOLOL 25 MG TABLET (FP) PO SCH (10:00)
[2016-12-01] MEDS ORDERED: LOSARTAN POTASSIUM 50 MG TABLET (FP) PO SCH (10:00)
[2016-12-01] MEDS ORDERED: PANTOPRAZOLE 40 MG TABLET (FP) PO SCH (10:00)
[2016-12-01] MEDS ORDERED: ALLOPURINOL 300 MG TABLET (FP) PO SCH (10:00)
[2016-12-01] MEDS: MUPIROCIN 2% TOPICAL OINTMENT FOR DECOLONIZATION NS SCH (10:39)
[2016-12-01] MEDS ORDERED: ACETAMINOPHEN 325 MG TABLET (FP) PO PRN (11:40)
--- NOTE | 2016-12-01 11:40 | PN ---
Progress Note (short form) - Note Progress Note: states breathing has improved. able to sleep several hours last night on cpap machine. denies CP, SOB, fever, chills, cough, N/V/C/D Current Medications Generic Name Dose Route Start Last Admin Trade Name Freq PRN Reason Stop Dose Admin Albuterol/Ipratropium 1 amp 11/30/16 20:58 Duoneb - NEB Q6H PRN SHORTNESS OF BREATH Allopurinol 300 mg 12/01/16 10:00 12/01/16 10:37 Zyloprim - PO 300 mg DAILY [facility] Administration Atenolol 25 mg 12/01/16 10:00 12/01/16 10:37 Tenormin - PO 25 mg DAILY [facility] Administration Chlorhexidine Gluconate 1 applic 11/30/16 22:00 11/30/16 22:01 Hibiclens For Decolonization - TP 1 applic HS [facility] Administration Cholecalciferol 2,000 unit 11/30/16 14:41 12/01/16 10:37 Vitamin D3 - PO 2,000 unit DAILY [facility] Administration Furosemide 40 mg 12/01/16 06:00 12/01/16 05:34 Lasix Injection - IVPUSH 40 mg BIDLASIX [facility] Administration Heparin Sodium (Porcine) 5,000 unit 11/30/16 14:00 12/01/16 05:34 Heparin - SQ 5,000 unit TID [facility] Administration Losartan Potassium 50 mg 12/01/16 10:00 12/01/16 10:37 Cozaar - PO 50 mg DAILY [facility] Administration Mupirocin 1 applic 11/30/16 22:00 12/01/16 10:39 Bactroban Ointment (For Decolonization) - NS 12/05/16 21:59 1 applic BID [facility] Administration Pantoprazole Sodium 40 mg 12/02/16 10:00 Protonix - PO DAILY [facility] Rosuvastatin Calcium 20 mg 11/30/16 20:00 11/30/16 22:26 Crestor - PO 20 mg DAILY@2000 [facility] Administration Zolpidem Tartrate 5 mg 11/30/16 23:02 11/30/16 23:28 Ambien - PO 5 mg HS PRN Administration INSOMNIA Last Vital Signs Temp Pulse Resp BP Pulse Ox 98.4 F 53 L 22 140/56 97 12/01/16 10:00 12/01/16 10:46 12/01/16 10:00 12/01/16 10:00 12/01/16 10:46 Intake & Output 11/28/16 11/29/16 11/30/16 12/01/16 23:59 23:59 23:59 23:59 Intake Total 800 Output Total 3250 1150 Balance -2450 -1150 Weight 360 lb 14.4 oz 356 lb 9.6 oz General NAD CV S1 S2 RRR no murmur/rub/gallop no JVD Lungs decreased breath sounds B/L bases Abdomen soft NT/ND obese chronic psoriatic changes along lower abdominal wall Extremites chronic psoriatric changes B/L LE with 1+ pitting edema on the RLE trace on L. scattered erythema surrounding silver plaques, non tender no drainage or warmth CBCD WBC 7.2 K/mm3 (4.0-10.0) 12/01/16 05:45 RBC 4.30 M/mm3 (4.00-5.60) 12/01/16 05:45 Hgb 12.6 GM/dL (11.7-16.9) 12/01/16 05:45 Hct 37.9 % (35.4-49) 12/01/16 05:45 MCV 88.2 fl (80-96) 12/01/16 05:45 MCHC 33.2 g/dl (32.0-35.9) 12/01/16 05:45 RDW 16.3 % (11.9-15.9) H 12/01/16 05:45 Plt Count 234 K/MM3 (134-434) 12/01/16 05:45 MPV 6.9 fl (7.5-11.1) L 12/01/16 05:45 CMP Sodium 140 mmol/L (136-145) 12/01/16 05:45 Potassium 3.8 mmol/L (3.5-5.1) 12/01/16 05:45 Chloride 100 mmol/L (98-107) 12/01/16 05:45 Carbon Dioxide 32 mmol/L (21-32) 12/01/16 05:45 Anion Gap 8 (8-16) 12/01/16 05:45 BUN 19 mg/dL (7-18) H 12/01/16 05:45 Creatinine 1.6 mg/dL (0.7-1.3) H 12/01/16 05:45 Creat Clearance w eGFR 42.58 (>60) 12/01/16 05:45 Calcium 9.1 mg/dL (8.5-10.1) 12/01/16 05:45 Total Bilirubin 1.1 mg/dL (0.2-1.0) H D 12/01/16 05:45 AST 11 U/L (15-37) L D 12/01/16 05:45 ALT 19 U/L (12-78) D 12/01/16 05:45 Alkaline Phosphatase 104 U/L (45-117) 12/01/16 05:45 Total Protein 6.4 g/dl (6.4-8.2) 12/01/16 05:45 Albumin 3.1 g/dl (3.4-5.0) L 12/01/16 05:45 ASSESSMENT AND PLAN: 71yo M with PMH morbid obesity, HTN, CKD, psorasis presented with progressively worsening SOB x3 days 1. Acute respiratory distress-due to volume overload. clinically improved. saturating well on 4L NC. used cpap overnight for likely OSMAN then because of desaturations. 4 lb weight loss since yesterday. cardiac enzymes neg x2. cont lasix 40mg IVP BID. monitor electrolytes. cardio on board. daily weights, Strict I&O. 2. RLE swelling- improved. doppler negative for DVT 3. Morbid obesity-lifestyle changes. dietary eval. goal to loose 1 lb/week 4. CKD- at baseline 1.5. will monitor while on lasix. 5. HTN- controlled. monitor 6. DVT ppx- hep sq 7. plan d/w present at bedside. all questions answered. verbalized understanding and agreement with plan 8. stable for transfer to medical floor The care of this patient involved high complexity decision making to prevent further life threatening deterioration of the patient's condition and/or to evaluate & treat vital organ system(s) failure or risk of failure. 38 minutes Visit type - Emergency Visit Emergency Visit: Yes ED Registration Date: 11/30/16 Care time: The patient presented to the Emergency Department on the above date and was hospitalized for further evaluation of their emergent condition. - New Patient This patient is new to me today: No - Critical Care Critical Care patient: Yes Total Critical Care Time (in minutes): 38 Critical Care Statement: The care of this patient involved high complexity decision making to prevent further life threatening deterioration of the patient 's condition and/or to evaluate & treat vital organ system(s) failure or risk of failure. - Discharge Referral Referred to [id number] No
--- NOTE | 2016-12-01 12:42 | PN ---
Progress Note (short form) - Note Progress Note: CC: Sob/respiratory failure S: SOB continues to improve, still with LE edema. no cp, palps, dizziness. Current Medications Acetaminophen (Tylenol -) 650 mg PO Q6H PRN PRN Reason: FEVER OR PAIN Albuterol/Ipratropium (Duoneb -) 1 amp NEB Q6H PRN PRN Reason: SHORTNESS OF BREATH Allopurinol (Zyloprim -) 300 mg PO DAILY [facility] Last Admin: 12/01/16 10:37 Dose: 300 mg Chlorhexidine Gluconate (Hibiclens For Decolonization -) 1 applic TP HS [facility] Last Admin: 11/30/16 22:01 Dose: 1 applic Cholecalciferol (Vitamin D3 -) 2,000 unit PO DAILY [facility] Last Admin: 12/01/16 10:37 Dose: 2,000 unit Furosemide (Lasix Injection -) 40 mg IVPUSH BIDLASIX [facility] Last Admin: 12/01/16 05:34 Dose: 40 mg Heparin Sodium (Porcine) (Heparin -) 5,000 unit SQ TID [facility] Last Admin: 12/01/16 05:34 Dose: 5,000 unit Losartan Potassium (Cozaar -) 50 mg PO DAILY [facility] Last Admin: 12/01/16 10:37 Dose: 50 mg Mupirocin (Bactroban Ointment (For Decolonization) -) 1 applic NS BID [facility] Stop: 12/05/16 21:59 Last Admin: 12/01/16 10:39 Dose: 1 applic Pantoprazole Sodium (Protonix -) 40 mg PO DAILY [facility] Rosuvastatin Calcium (Crestor -) 20 mg PO DAILY@1999 [facility] Last Admin: 11/30/16 22:26 Dose: 20 mg Zolpidem Tartrate (Ambien -) 5 mg PO HS PRN PRN Reason: INSOMNIA Last Admin: 11/30/16 23:28 Dose: 5 mg Vital Signs - 24 hr 11/30/16 11/30/16 11/30/16 13:40 13:45 13:55 Temperature 97.3 F L Pulse Rate 53 L Respiratory 25 H Rate Blood Pressure 138/72 O2 Sat by Pulse 100 100 Oximetry (%) 11/30/16 11/30/16 11/30/16 13:57 14:06 15:00 Temperature 97.3 F L Pulse Rate 53 L 67 Respiratory 25 H Rate Blood Pressure 138/72 O2 Sat by Pulse 100 100 Oximetry (%) 11/30/16 11/30/16 11/30/16 15:27 17:16 18:25 Temperature Pulse Rate 50 L 54 L 56 L Respiratory 21 22 Rate Blood Pressure 134/64 140/65 O2 Sat by Pulse 97 Oximetry (%) 11/30/16 11/30/16 11/30/16 21:00 22:00 23:46 Temperature 97.7 F Pulse Rate 55 L Respiratory 23 24 Rate Blood Pressure 135/66 O2 Sat by Pulse 100 100 99 Oximetry (%) 12/01/16 12/01/16 12/01/16 00:00 02:00 04:00 Temperature 98 F Pulse Rate 57 L 48 L 45 L Respiratory 21 21 20 Rate Blood Pressure 133/66 128/56 125/57 O2 Sat by Pulse Oximetry (%) 12/01/16 12/01/16 12/01/16 06:00 08:00 10:00 Temperature 97.7 F 98.4 F Pulse Rate 49 L 42 L 52 L Respiratory 20 22 22 Rate Blood Pressure 144/82 138/63 140/56 O2 Sat by Pulse 100 Oximetry (%) 12/01/16 12/01/16 12/01/16 10:46 12:00 12:26 Temperature Pulse Rate 53 L 56 L Respiratory 22 Rate Blood Pressure 139/65 O2 Sat by Pulse 97 96 Oximetry (%) Intake & Output 11/29/16 11/30/16 12/01/16 12/02/16 07:59 07:59 07:59 07:59 Intake Total 800 Output Total 4000 1000 Balance -3200 -1000 Weight 356 lb 9.6 oz nad, calm jvd elevated, neck supple trace bibasilar crackles nl effort rrr nl s1, s2 2/6 murmur at sternal border + bs soft nt nd, obese + chronic venous stasis changes with bullae/ulcerations and skin thickening 1+ edema + dp/pt aa0x3 no jaundice, diaphoresis no carotid bruits CBC, BMP 12/01/16 05:45 12/01/16 05:45 ekg 11/30: sb 55 bpm, av delay. low voltage qrs. baseline artifact which does not march out (low suspicion for underlying atrial activity/arrhythmia). poor r wave progression. non-specific t wave ab. tele: sb cxr 11/30: mild bibasilar atelectasis without focal infiltrates. (By my review of images --> + congestion with fluid in fissures. poor penetration of costrophrenic angles vs. bilateral pleural effusion). cxr 12/01: improving congestion. echo 11/2016: tds. nl lv fn. nl rv size, nl rv size/fn. mod lae. mild-mod mac. 1+ as. Echo 09/09: very TDS; nl LV/overall LVEF; diast fxn not assessed. RV not well seen; mod LAE; valves tds but no abn seen MPI ([place]): TDS: no STs; patchy uptake diffusely on rest and stress; diaphragm and lateral chest wall adipose attenuation seen; small apical ischemia and ? mid inferolateral/basal lateral wall ischemia; nl EF; no LVE/TID abnormalities may be related to artifact/body habitus. 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 respiratory distress likely 2/2 acute diastolic heart failure exacerbation (new diagnosis). - ce's neg x 2, ekg without acute ischemic changes. no evidence of acs. - by my review + pulmonary edema no cxr. improved with bipap and lasix. - s/p lasix 40 mg IV x 2 11/30, reevaluate Cr tomorrow to adjust dosing. - 12/01: Cr slightly worse today, would decrease lasix dosing to daily from bid. daily standing weights, I/O's, bmp. - will likely need osman evaluation as outpatient. HTN - bradycardic worsening, will stop atenolol HL - con't statin Possible cad - RF's for cad. mild ischemia on stress (although may also be false + given body habitus/artifact) - cont statin, ok to hold asa while with recent gastritis. will defer to outpatient physicians regarding when to resume. > 40 min spent on patient care as well as extensive counseling of patient and family
[2016-12-01] MEDS ORDERED: ALBUTEROL SO4 2.5/IPRATROPIUM 0.5 INH SOL 3 ML VIAL.NEB. NEB PRN (15:08)
[2016-12-01] MEDS ORDERED: ROSUVASTATIN CA 10 MG TABLET (FP) ONE (21:19)
[2016-12-01] MEDS: ROSUVASTATIN CA 20 MG TABLET (FP) PO SCH (21:33)
[2016-12-01] MEDS ORDERED: MUPIROCIN 2% TOPICAL OINTMENT FOR DECOLONIZATION NS SCH (22:00)
[2016-12-01] MEDS ORDERED: CHLORHEXIDINE GLUCONATE 4% CLEANSER FOR DECOLONIZATION TP SCH (22:00)
[2016-12-01] MEDS ORDERED: PATIENT'S OWN MEDICATION (NON-FORMULARY) (Zolpidem Tartrate [Ambien] 10 MG) PO SCH ×2 (22:00)
[2016-12-02] MEDS: ZOLPIDEM TARTRATE 5 MG TABLET PO PRN (00:10)
[2016-12-02] MEDS ORDERED: diphenhydrAMINE HCL 25 MG CAPSULE (FP) PO ONE ×2 (00:19→20:31)
[2016-12-02] MEDS: HEPARIN NA (PORCINE) 5,000 UNITS/ML 1ML VIAL SQ SCH ×3 (06:24→21:29)
[2016-12-02 08:13] LABS: ANION GAP 7 (8-16); CALCIUM 8.7 mg/dL (8.5-10.1); CO2 33 mmol/L (21-32); CREATININE 1.6 mg/dL (0.7-1.3); GLUCOSE,RANDOM 86 mg/dL (74-106); MAGNESIUM 2.2 mg/dL (1.8-2.4); PHOSPHOROUS 3.5 mg/dL (2.5-4.9)
--- NOTE | 2016-12-02 08:17 | PN ---
Progress Note (short form) - Note Progress Note: called to evaluate patient at 7am this morning due to cough while laying down. As per patient, he is not experiencing any chest discomfort, sob, productive cough, wheezing. He states that when he layed down one time he had to cough , due to lying flat. VS wnl LUNGS: decreased breath sounds b/l lung avendaño, no wheezing, crackles Heart: RRR, Ns1s2 Extremirity: chronic leg swelling b/l A/p: cough x1 episode, while laying flat. PE not indicative of new/acute process. advise use of incentive spirometry; Problem List - Problems (1) Hypoxia Code(s): R09.02 - HYPOXEMIA (2) Pulmonary edema Code(s): J81.1 - CHRONIC PULMONARY EDEMA (3) Morbid obesity Code(s): E66.01 - MORBID (SEVERE) OBESITY DUE TO EXCESS CALORIES (4) Psoriasis Code(s): L40.9 - PSORIASIS, UNSPECIFIED (5) CKD (chronic kidney disease) Code(s): N18.9 - CHRONIC KIDNEY DISEASE, UNSPECIFIED
[2016-12-02] MEDS ORDERED: FUROSEMIDE 40 MG/4 ML INJECTABLE VIAL IVPUSH SCH (10:00)
--- NOTE | 2016-12-02 10:03 | PN ---
Physical Exam: SUBJECTIVE: Patient seen and examined at bedside, he is doing much better in term of breathing and leg swelling. No acute events overnight. OBJECTIVE: Vital Signs Period Temp Pulse Resp BP Sys/Amaral Pulse Ox Last 24 Hr 97.6 F-98.0 F 53-60 16-22 112-139/58-67 95-97 GENERAL: The patient is awake, alert, and fully oriented, in no acute distress. HEAD: Normal with no signs of trauma. EYES: PERRL, extraocular movements intact, sclera anicteric, conjunctiva clear. No ptosis. ENT: Ears normal, nares patent, oropharynx clear without exudates, moist mucous membranes. NECK: Trachea midline, full range of motion, supple. LUNGS: Breath sounds equal, clear to auscultation bilaterally, no wheezes, no crackles, no accessory muscle use. HEART: Regular rate and rhythm, S1, S2 without murmur, rub or gallop. ABDOMEN: Soft, nontender, nondistended, normoactive bowel sounds, no guarding, no rebound, no hepatosplenomegaly, no masses. EXTREMITIES: 2+ pulses, warm, well-perfused, no edema. NEUROLOGICAL: Cranial nerves II through XII grossly intact. Normal speech, gait not observed. PSYCH: Normal mood, normal affect. SKIN: Warm, dry, normal turgor, no rashes or lesions noted Laboratory Results - last 24 hr 12/02/16 07:30 Sodium 139 Potassium 3.5 Chloride 99 Carbon Dioxide 33 H Anion Gap 7 L BUN 22 H Creatinine 1.6 H Random Glucose 86 Calcium 8.7 Phosphorus 3.5 Magnesium 2.2 Active Medications Generic Name Dose Route Start Last Admin Trade Name Rafaelq PRN Reason Stop Dose Admin Acetaminophen 650 mg 12/01/16 11:40 Tylenol - PO Q6H PRN FEVER OR PAIN Albuterol/Ipratropium 1 amp 12/01/16 15:08 Duoneb - NEB Q6H PRN SHORTNESS OF BREATH Allopurinol 300 mg 12/02/16 10:00 Zyloprim - PO DAILY [facility] Cholecalciferol 2,000 unit 12/02/16 10:00 Vitamin D3 - PO DAILY [facility] Furosemide 40 mg 12/02/16 10:00 Lasix Injection - IVPUSH DAILY [facility] Heparin Sodium (Porcine) 5,000 unit 12/01/16 22:00 12/02/16 06:24 Heparin - SQ 5,000 unit TID [facility] Administration Losartan Potassium 50 mg 12/02/16 10:00 Cozaar - PO DAILY [facility] Pantoprazole Sodium 40 mg 12/02/16 10:00 Protonix - PO DAILY [facility] Rosuvastatin Calcium 20 mg 12/01/16 20:00 12/01/16 21:33 Crestor - PO 20 mg DAILY@2000 [facility] Administration Zolpidem Tartrate 5 mg 12/01/16 15:08 12/02/16 00:10 Ambien - PO 5 mg HS PRN Administration INSOMNIA ASSESSMENT/PLAN: 71yo man with PMH of psoriasis/peripheral neuropathy, HTN, OSMAN, CHF who presents with dyspnea and LE edema likely due to acute CHF decompensation in the setting of diet and medication non-compliance. There is low pre-test probability of PE in this patient, and d-dimer levels are low (297), further ruling it out. Patient's breathing is improved after 40mg lasix and NIPPV support. Low suspicion for infectious etiology as the patient is afebrile without leukocytosis, and will monitor off antibiotics. #decompensated CHF -Cardiology consulted (Dr. Jensen) -NIPPV support to maintain SpaO2 >90% -lasix 40mg PO daily - cardiac enzymes negative -f/u lipid profile -f/u ECHO with signs of CHF #LE edema -ultrasound doppler negative for DVT #CKD -Daily weights -Strict I&Os -continue home cholecalciferol #HTN -Continue atenolol 25mg PO daily -Continue losartan 50mg PO daily #HLD -continue rosuvastatin 20mg PO HS #suspected COPD -duo neb q6h PRN #FEN -No IVF -lytes wnl -Na controlled diet, Fluid restrict 1L/day #PPX -DVT with heparin 5000U SQ TID -GI - not indicated Visit type - Emergency Visit Emergency Visit: Yes ED Registration Date: 11/30/16 Care time: The patient presented to the Emergency Department on the above date and was hospitalized for further evaluation of their emergent condition. - New Patient This patient is new to me today: Yes Date on this admission: 12/03/16 - Critical Care Critical Care patient: No - Discharge Referral Referred to [facility] Med P.C.: No
--- NOTE | 2016-12-02 10:37 | PN ---
Teaching Attending Note Name of Resident: Jaydon Sargent ATTENDING PHYSICIAN STATEMENT I saw and evaluated the patient. I reviewed the resident's note and discussed the case with the resident. I agree with the resident's findings and plan as documented. SUBJECTIVE:had some coughing this AM when laying down. but overall improved. states he was able to sleep well last night. denies CP, SOB, fever,chills, N/V/C /D OBJECTIVE: Last Vital Signs Temp Pulse Resp BP Pulse Ox 98.0 F 54 L 20 135/67 95 12/02/16 06:00 12/02/16 06:00 12/02/16 06:00 12/02/16 06:00 12/01/16 21:00 Intake & Output 11/29/16 11/30/16 12/01/16 12/02/16 23:59 23:59 23:59 23:59 Intake Total 800 100 Output Total 3250 2700 Balance -2450 -2700 100 Weight 360 lb 14.4 oz 356 lb 9.6 oz General NAD CV S1 S2 RRR no murmur/rub/gallop Lungs CTA B/L no wheezing/rales/rhonchi Extremities trace pitting edema ASSESSMENT AND PLAN: 71yo M with PMH morbid obesity, HTN, CKD, psorasis presented with progressively worsening SOB x3 days 1. Acute respiratory distress-due to volume overload. clinically improved. saturating 97% on RA. lasix decreased to daily dosing. can likely switch to po at this time. will defer to cardiology. will need diuretic on discharge. will obtain pre and post. monitor electrolytes. cardio on board. daily weights, Strict I&O. 2. RLE swelling- improved. doppler negative for DVT 3. Morbid obesity-lifestyle changes. dietary eval. goal to loose 1 lb/week 4. CKD- at baseline 1.5. slight increase but near baseline. will monitor while on lasix. 5. HTN- controlled. monitor 6. DVT ppx- hep sq 7. plan d/w present at bedside. all questions answered. verbalized understanding and agreement with plan 8. d/c planning awaiting discussion with cardiology.
[2016-12-02] MEDS: PANTOPRAZOLE 40 MG TABLET (FP) PO SCH (10:48)
[2016-12-02] MEDS: CHOLECALCIFEROL (VITAMIN D3) 1,000 UNIT TABLET (FP) PO SCH (10:49)
[2016-12-02] MEDS: LOSARTAN POTASSIUM 50 MG TABLET (FP) PO SCH (10:49)
[2016-12-02] MEDS: ALLOPURINOL 300 MG TABLET (FP) PO SCH (10:49)
[2016-12-02] MEDS ORDERED: POTASSIUM CHLORIDE TABS 20 MEQ TABLET.ER (FP) PO ONE (16:21)
--- NOTE | 2016-12-02 16:22 | PN ---
Progress Note (short form) - Note Progress Note: CC: sob/respiratory failure S: transferred to floor. ambulated today, still with [place]. LE edema improving , almost at baseline. no cp, palps, dizziness. Current Medications Acetaminophen (Tylenol -) 650 mg PO Q6H PRN PRN Reason: FEVER OR PAIN Albuterol/Ipratropium (Duoneb -) 1 amp NEB Q6H PRN PRN Reason: SHORTNESS OF BREATH Allopurinol (Zyloprim -) 300 mg PO DAILY [facility] Last Admin: 12/02/16 10:49 Dose: 300 mg Cholecalciferol (Vitamin D3 -) 2,000 unit PO DAILY [facility] Last Admin: 12/02/16 10:49 Dose: 2,000 unit Furosemide (Lasix Injection -) 40 mg IVPUSH DAILY [facility] Last Admin: 12/02/16 10:50 Dose: 40 mg Heparin Sodium (Porcine) (Heparin -) 5,000 unit SQ TID [facility] Last Admin: 12/02/16 15:43 Dose: 5,000 unit Losartan Potassium (Cozaar -) 50 mg PO DAILY [facility] Last Admin: 12/02/16 10:49 Dose: 50 mg Pantoprazole Sodium (Protonix -) 40 mg PO DAILY [facility] Last Admin: 12/02/16 10:48 Dose: 40 mg Potassium Chloride (K-Dur -) 40 meq PO ONCE ONE Stop: 12/02/16 16:22 Rosuvastatin Calcium (Crestor -) 20 mg PO DAILY@1999 [facility] Last Admin: 12/01/16 21:33 Dose: 20 mg Zolpidem Tartrate (Ambien -) 5 mg PO HS PRN PRN Reason: INSOMNIA Last Admin: 12/02/16 00:10 Dose: 5 mg Vital Signs - 24 hr 12/01/16 12/01/16 12/01/16 18:00 21:00 23:01 Temperature 97.6 F Pulse Rate 60 58 L Respiratory 21 20 20 Rate Blood Pressure 112/58 126/63 O2 Sat by Pulse 95 Oximetry (%) 12/02/16 12/02/16 12/02/16 06:00 14:00 14:47 Temperature 98.0 F 97.5 F L Pulse Rate 54 L 60 60 Respiratory 20 18 Rate Blood Pressure 135/67 109/44 O2 Sat by Pulse 97 Oximetry (%) 12/02/16 15:21 Temperature Pulse Rate 75 Respiratory Rate Blood Pressure O2 Sat by Pulse 91 L Oximetry (%) Intake & Output 11/30/16 12/01/16 12/02/16 12/03/16 07:59 07:59 07:59 07:59 Intake Total 800 100 200 Output Total 4000 1950 900 Balance -3200 -1850 -700 Weight 356 lb 9.6 oz nad, calm jvd tds but appears to have improved, neck supple ctab, nl effort rrr nl s1, s2 2/6 murmur at sternal border + bs soft nt nd, obese + chronic venous stasis changes with bullae/ulcerations and skin thickening 1+ edema + dp/pt aa0x3 no jaundice, diaphoresis no carotid bruits Laboratory Tests 12/01/16 05:45 Hgb Sodium Potassium Chloride Carbon Dioxide Anion Gap BUN Creatinine Hemoglobin A1c % Magnesium TSH 1.16 12/01/16 12/02/16 05:45 07:30 Hgb Sodium 139 Potassium 3.5 Chloride 99 Carbon Dioxide 33 H Anion Gap 7 L BUN 22 H Creatinine 1.6 H Hemoglobin A1c % 5.2 D Magnesium 2.2 TSH ekg 11/30: sb 55 bpm, av delay. low voltage qrs. baseline artifact which does not march out (low suspicion for underlying atrial activity/arrhythmia). poor r wave progression. non-specific t wave ab. off tele cxr 11/30: mild bibasilar atelectasis without focal infiltrates. (By my review of images --> + congestion with fluid in fissures. poor penetration of costrophrenic angles vs. bilateral pleural effusion). cxr 12/01: improving congestion. 11/30 LE dopplers neg for ischemia. echo 11/2016: tds. nl lv fn. nl rv size, nl rv size/fn. mod lae. mild-mod mac. 1+ as. Echo 09/09: very TDS; nl LV/overall LVEF; diast fxn not assessed. RV not well seen; mod LAE; valves tds but no abn seen MPI ([place]): TDS: no STs; patchy uptake diffusely on rest and stress; diaphragm and lateral chest wall adipose attenuation seen; small apical ischemia and ? mid inferolateral/basal lateral wall ischemia; nl EF; no LVE/TID abnormalities may be related to artifact/body habitus. 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 respiratory distress likely 2/2 acute diastolic heart failure exacerbation (new diagnosis). - ce's neg x 2, ekg without acute ischemic changes. no evidence of acs. - by my review + pulmonary edema no cxr. improved with bipap and lasix. - s/p lasix 40 mg IV x 2 11/30, reevaluate Cr tomorrow to adjust dosing. - 12/01: Cr slightly worse today, would decrease lasix dosing to daily from bid. - 12/02: needs standing weights. Can transition to torsemide tomorrow, 40 mg daily or 20 mg daily pending am labs. daily standing weights, I/O's, bmp. Lyte repletion prn. - will likely need osman evaluation as outpatient. - will need scale for home weight monitoring on discharge. HTN - most recent bp slightly low, would repeat. Monitor for need to reduce losartan dose. HL - con't statin Possible cad - RF's for cad. mild ischemia on stress (although may also be false + given body habitus/artifact) - cont statin, ok to hold asa while with recent gastritis. will defer to outpatient physicians regarding when to resume. Likely ready to d/c from [facility] tomorrow.
[2016-12-02] MEDS ORDERED: ROSUVASTATIN CA 10 MG TABLET (FP) ONE (21:10)
[2016-12-02] MEDS: ROSUVASTATIN CA 20 MG TABLET (FP) PO SCH (21:28)
[2016-12-03] MEDS: ZOLPIDEM TARTRATE 5 MG TABLET PO PRN (00:06)
[2016-12-03] MEDS: HEPARIN NA (PORCINE) 5,000 UNITS/ML 1ML VIAL SQ SCH ×2 (06:20→15:17)
[2016-12-03] MEDS ORDERED: TORSEMIDE 20 MG TABLET (FP) PO SCH ×4 (10:00→10:30)
[2016-12-03 10:09] LABS: ANION GAP 9 (8-16); CALCIUM 8.7 mg/dL (8.5-10.1); CO2 28 mmol/L (21-32); CREATININE 1.7 mg/dL (0.7-1.3); GLUCOSE,RANDOM 85 mg/dL (74-106)
[2016-12-03] MEDS: CHOLECALCIFEROL (VITAMIN D3) 1,000 UNIT TABLET (FP) PO SCH (10:13)
[2016-12-03] MEDS: PANTOPRAZOLE 40 MG TABLET (FP) PO SCH (10:13)
[2016-12-03] MEDS: ALLOPURINOL 300 MG TABLET (FP) PO SCH (10:13)
[2016-12-03] MEDS: LOSARTAN POTASSIUM 50 MG TABLET (FP) PO SCH ×2 (10:15→10:27)
--- NOTE | 2016-12-03 10:21 | DS ---
Physical Exam: SUBJECTIVE: Patient seen and examined OBJECTIVE: Vital Signs Period Temp Pulse Resp BP Sys/Amaral Pulse Ox Last 24 Hr 97.5 F-97.8 F 56-75 18-22 109-130/44-64 91-97 PHYSICAL EXAM GENERAL: The patient is awake, alert, and fully oriented, in no acute distress. HEAD: Normal with no signs of trauma. EYES: PERRL, extraocular movements intact, sclera anicteric, conjunctiva clear. ENT: Ears normal, nares patent, oropharynx clear without exudates, moist mucous membranes. NECK: Trachea midline, full range of motion, supple. LUNGS: Breath sounds equal, clear to auscultation bilaterally, no wheezes, no crackles, no accessory muscle use. HEART: Regular rate and rhythm, S1, S2 without murmur, rub or gallop. ABDOMEN: Soft, nontender, nondistended, normoactive bowel sounds, no guarding, no rebound, no hepatosplenomegaly, no masses. EXTREMITIES: 2+ pulses, warm, well-perfused, no edema. NEUROLOGICAL: Cranial nerves II through XII grossly intact. Normal speech, gait not observed. PSYCH: Normal mood, normal affect. SKIN: Warm, dry, normal turgor, no rashes or lesions noted. LABS Laboratory Results - last 24 hr 12/03/16 06:20 Sodium 138 Potassium 4.5 D Chloride 101 Carbon Dioxide 28 Anion Gap 9 BUN 22 H Creatinine 1.7 H Random Glucose 85 Calcium 8.7 HOSPITAL COURSE: Date of Admission:11/30/16 Date of Discharge: 12/03/16 Discharge Summary Reason For Visit: PULMONARY EDEMA Current Active Problems CKD (chronic kidney disease) (Acute) Hypoxia (Acute) Pulmonary edema (Acute) Condition: Stable - Instructions Diet, Activity, Other Instructions: You have been admitted for shortness of breath, you have been treated with diuretics and Oxygen Your home medications have changed. Please take your medicine as prescribed. Follow a low salt diet, avoid eating a lot of cheese and hungarian meats as they have high salt content. Slowly increase your activity as tolerated. Please use oxygen at 4 liters by nasal cannula when exerting yourself to keep the saturation over 90 %, and reassess with your primary care physician Please follow up with your primary care physician within a week and work ticket distributor this month. Please make sure you measure your weight daily. Please call your work ticket distributor if you notice more than 2-3 pound weight gain as they may instruct you to adjust your medication. Please resume your daily activity as tolerated If you develop fever, chills, shortness of breath or your symptoms worsen come back to the emergency room You will be discharged home with visiting nurse. please see at [facility] on Saturday AT 1;[phone]. Referrals: Shereen Tsai MD [Staff Physician] - Jhonatan Faustin MD [Primary Care Provider] - 1 Week Burton Green MD [Staff Physician] - Disposition: VNS/HOME HEALTH CARE - Home Medications Comprehensive Discharge Medication List: Ambulatory Orders Pantoprazole Sodium [Protonix -] 40 mg PO DAILY #30 tab 08/11/16 Cholecalciferol (Vitamin D3) [Vitamin D3] 2,000 unit PO ASDIR tablet 08/17/16 Zolpidem Tartrate [Ambien] 10 mg PO HS 10/22/16 Losartan Potassium [Cozaar -] 50 mg PO DAILY 11/04/16 - Discharge Referral Referred to [facility] Med P.C.: No
--- NOTE | 2016-12-03 13:07 | PN ---
Teaching Attending Note Name of Resident: Jaydon Sargent ATTENDING PHYSICIAN STATEMENT I saw and evaluated the patient. I reviewed the resident's note and discussed the case with the resident. I agree with the resident's findings and plan as documented. SUBJECTIVE:asymptomatic. states breathing has improved and legs have never been this skinny. denies Cp, SOB< fever, chills, N/V/C/D OBJECTIVE: Last Vital Signs Temp Pulse Resp BP Pulse Ox 97.8 F 56 L 20 116/64 96 12/03/16 09:03 12/03/16 09:05 12/03/16 09:03 12/03/16 09:03 12/03/16 09:05 Intake & Output 11/30/16 12/01/16 12/02/16 12/03/16 23:59 23:59 23:59 23:59 Intake Total 800 700 100 Output Total 3250 2700 900 Balance -2450 -2700 -200 100 Weight 360 lb 14.4 oz 356 lb 9.6 oz 347 lb 6.4 oz General NAD CV S1 S2 RRR no murmur/rub/gallop Lungs CTA B/L no wheezing/rales/rhonchi Extremities trace pitting edema ASSESSMENT AND PLAN: 71yo M with PMH morbid obesity, HTN, CKD, psorasis presented with progressively worsening SOB x3 days 1. Acute respiratory distress-due to new onset diastolic heart failure. weight today reported as 344. clinically improved on lasix IV and now transitioned to torsemide po. plan to receive 40mg today and d/c on 20mg. evaluated iwth pre and post and qualified for home O2 as O2 sat reportd to drop to 84% on exertion but pt stating it only dropped to 89%. will repeat pre % post to further evaluate need for oxygen. will need repeat labs this week to monitor electrolytes. encouraged to weigh himself daily and call correctional manager if more than 3 lb weight gain for dose adjustments. 2. RLE swelling- improved. doppler negative for DVT 3. Morbid obesity-lifestyle changes. dietary eval. goal to loose 1 lb/week 4. CKD- at baseline 1.5. slight increase but near baseline. will monitor while on diuretic 5. HTN- controlled. monitor 6. DVT ppx- hep sq 7. plan d/w present at bedside. all questions answered. verbalized understanding and agreement with plan. d/c home today
--- NOTE | 2016-12-03 13:14 | PN ---
Progress Note (short form) - Note Progress Note: Desaturated to 85% on RA while ambulating. Required 3 L NC O2 to achieve saturation of 91%. Denies CP but tachypneic. Intake & Output 11/30/16 12/01/16 12/02/16 12/03/16 23:59 23:59 23:59 23:59 Intake Total 800 700 100 Output Total 3250 2700 900 Balance -2450 -2700 -200 100 Weight 360 lb 14.4 oz 356 lb 9.6 oz 347 lb 6.4 oz Last Vital Signs Temp Pulse Resp BP Pulse Ox 97.8 F 56 L 20 116/64 96 12/03/16 09:03 12/03/16 09:05 12/03/16 09:03 12/03/16 09:03 12/03/16 09:05 Active Medications Acetaminophen (Tylenol -) 650 mg PO Q6H PRN PRN Reason: FEVER OR PAIN Albuterol/Ipratropium (Duoneb -) 1 amp NEB Q6H PRN PRN Reason: SHORTNESS OF BREATH Allopurinol (Zyloprim -) 300 mg PO DAILY [facility] Last Admin: 12/03/16 10:13 Dose: 300 mg Cholecalciferol (Vitamin D3 -) 2,000 unit PO DAILY [facility] Last Admin: 12/03/16 10:13 Dose: 2,000 unit Heparin Sodium (Porcine) (Heparin -) 5,000 unit SQ TID [facility] Last Admin: 12/03/16 06:20 Dose: 5,000 unit Losartan Potassium (Cozaar -) 50 mg PO DAILY [facility] Last Admin: 12/03/16 10:27 Dose: 50 mg Pantoprazole Sodium (Protonix -) 40 mg PO DAILY [facility] Last Admin: 12/03/16 10:13 Dose: 40 mg Rosuvastatin Calcium (Crestor -) 20 mg PO DAILY@1999 [facility] Last Admin: 12/02/16 21:28 Dose: 20 mg Torsemide (Demadex -) 20 mg PO DAILY [facility] Zolpidem Tartrate (Ambien -) 5 mg PO HS PRN PRN Reason: INSOMNIA Last Admin: 12/03/16 00:06 Dose: 5 mg Constitutional: Yes: NAD, Morbidly Obese Eyes: Yes: Conjunctiva Clear, EOM Intact HENT: Yes: Atraumatic, Normocephalic Neck: Yes: Supple, Trachea Midline Cardiovascular: Yes: Regular Rate and Rhythm Respiratory: Yes: Diminished at the bases. Few scattered Rhonchi, No: Wheezes Gastrointestinal: Yes: Normal Bowel Sounds, Soft, Abdomen, Obese ...Rectal Exam: Yes: Deferred Renal/: Yes: WNL Breast(s): Yes: WNL Musculoskeletal: Yes: WNL Extremities: Yes: WNL Edema: Yes Peripheral Pulses WNL: Yes Integumentary: Yes: WNL Neurological: Yes: WNL, Alert, Oriented ...Motor Strength: WNL Psychiatric: Yes: WNL, Alert, Oriented Laboratory Results - last 24 hr 12/03/16 06:20 Sodium 138 Potassium 4.5 D Chloride 101 Carbon Dioxide 28 Anion Gap 9 BUN 22 H Creatinine 1.7 H Random Glucose 85 Calcium 8.7 Assessment/Plan IMP: Decompensated CHF Do not suspect PNA Most likely COPD but does not appear to be in bronchospasm OSAS HTN Psoriasis Peripheral Neuropathy PLAN: Will need OSAS testing : patient is agreeable to portable testing, although an in lab test would be most useful Monitor off ABX BD [place] PRN D/C planning Dr Gillis
--- NOTE | 2016-12-03 13:32 | PN ---
Progress Note (short form) - Note Progress Note: CC: sob/respiratory failure S: ambulated today, with significant improvement in [place]. LE edema improved, better than baseline. no cp, palps, dizziness. Current Medications Acetaminophen (Tylenol -) 650 mg PO Q6H PRN PRN Reason: FEVER OR PAIN Albuterol/Ipratropium (Duoneb -) 1 amp NEB Q6H PRN PRN Reason: SHORTNESS OF BREATH Allopurinol (Zyloprim -) 300 mg PO DAILY [facility] Last Admin: 12/03/16 10:13 Dose: 300 mg Cholecalciferol (Vitamin D3 -) 2,000 unit PO DAILY [facility] Last Admin: 12/03/16 10:13 Dose: 2,000 unit Heparin Sodium (Porcine) (Heparin -) 5,000 unit SQ TID [facility] Last Admin: 12/03/16 06:20 Dose: 5,000 unit Losartan Potassium (Cozaar -) 50 mg PO DAILY [facility] Last Admin: 12/03/16 10:27 Dose: 50 mg Pantoprazole Sodium (Protonix -) 40 mg PO DAILY [facility] Last Admin: 12/03/16 10:13 Dose: 40 mg Rosuvastatin Calcium (Crestor -) 20 mg PO DAILY@1999 [facility] Last Admin: 12/02/16 21:28 Dose: 20 mg Torsemide (Demadex -) 20 mg PO DAILY [facility] Zolpidem Tartrate (Ambien -) 5 mg PO HS PRN PRN Reason: INSOMNIA Last Admin: 12/03/16 00:06 Dose: 5 mg Vital Signs - 24 hr 12/02/16 12/02/16 12/02/16 14:00 14:47 15:21 Temperature 97.5 F L Pulse Rate 60 60 75 Respiratory 18 Rate Blood Pressure 109/44 O2 Sat by Pulse 97 91 L Oximetry (%) 12/02/16 12/03/16 12/03/16 20:55 06:00 09:03 Temperature 97.8 F 97.8 F Pulse Rate 60 57 L Respiratory 20 22 20 Rate Blood Pressure 130/58 116/64 O2 Sat by Pulse 95 Oximetry (%) 12/03/16 09:05 Temperature Pulse Rate 56 L Respiratory Rate Blood Pressure O2 Sat by Pulse 96 Oximetry (%) Intake & Output 12/01/16 12/02/16 12/03/16 12/04/16 07:59 07:59 07:59 07:59 Intake Total 800 100 700 Output Total 4000 1950 900 Balance -3200 -1850 -200 Weight 356 lb 9.6 oz 347 lb 6.4 oz nad, calm jvd tds but appears to have improved, neck supple ctab, nl effort rrr nl s1, s2 2/6 murmur at sternal border + bs soft nt nd, obese + chronic venous stasis changes with bullae/ulcerations and skin thickening trace LE edema + dp/pt aa0x3 no jaundice, diaphoresis no carotid bruits CBC, BMP 12/01/16 05:45 12/03/16 06:20 ekg 11/30: sb 55 bpm, av delay. low voltage qrs. baseline artifact which does not march out (low suspicion for underlying atrial activity/arrhythmia). poor r wave progression. non-specific t wave ab. off tele cxr 11/30: mild bibasilar atelectasis without focal infiltrates. (By my review of images --> + congestion with fluid in fissures. poor penetration of costrophrenic angles vs. bilateral pleural effusion). cxr 12/01: improving congestion. 11/30 LE dopplers neg for ischemia. echo 11/2016: tds. nl lv fn. nl rv size, nl rv size/fn. mod lae. mild-mod mac. 1+ as. Echo 09/09: very TDS; nl LV/overall LVEF; diast fxn not assessed. RV not well seen; mod LAE; valves tds but no abn seen MPI ([place]): TDS: no STs; patchy uptake diffusely on rest and stress; diaphragm and lateral chest wall adipose attenuation seen; small apical ischemia and ? mid inferolateral/basal lateral wall ischemia; nl EF; no LVE/TID abnormalities may be related to artifact/body habitus. 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 respiratory distress likely 2/2 acute diastolic heart failure exacerbation (new diagnosis). - ce's neg x 2, ekg without acute ischemic changes. no evidence of acs. - by my review + pulmonary edema no cxr. improved with bipap and lasix. - s/p lasix 40 mg IV x 2 11/30, reevaluate Cr tomorrow to adjust dosing. - 12/01: Cr slightly worse today, would decrease lasix dosing to daily from bid. - 12/02: needs standing weights. Can transition to torsemide tomorrow, 40 mg daily or 20 mg daily pending am labs. daily standing weights, I/O's, bmp. Lyte repletion prn. - 12/03: Cr 1.6 --> 1.7 on lasix 40 mg daily. Will transition to torsemide 20 mg daily as outpatient regimen. Patient has appointment with Dr. Faustin on Saturday and can have f/u bmp drawn there. - will likely need osman evaluation as outpatient. - will need scale for home weight monitoring on discharge. HTN - controlled, con't losartan, diuretics. HL - con't statin Possible cad - RF's for cad. mild ischemia on stress (although may also be false + given body habitus/artifact) - cont statin, ok to hold asa while with recent gastritis. will defer to outpatient physicians regarding when to resume. Stable for d/c from CV perspective. Will need home weight monitoring. May need to increase torsemide dose if he has weight gain. Has f/u with Dr. Faustin on saturday for repeat weight/bmp. Will need follow up with outpatient toddler teacher Dr. eddy in 2-4 weeks.
--- NOTE | 2016-12-03 13:35 | DS ---
Physical Exam: SUBJECTIVE: Patient seen and examined OBJECTIVE: Vital Signs Period Temp Pulse Resp BP Sys/Amaral Pulse Ox Last 24 Hr 97.5 F-97.8 F 56-75 18-22 109-130/44-64 91-97 PHYSICAL EXAM GENERAL: The patient is awake, alert, and fully oriented, in no acute distress. HEAD: Normal with no signs of trauma. EYES: PERRL, extraocular movements intact, sclera anicteric, conjunctiva clear. ENT: Ears normal, nares patent, oropharynx clear without exudates, moist mucous membranes. NECK: Trachea midline, full range of motion, supple. LUNGS: Breath sounds equal, clear to auscultation bilaterally, no wheezes, no crackles, no accessory muscle use. HEART: Regular rate and rhythm, S1, S2 without murmur, rub or gallop. ABDOMEN: Soft, nontender, nondistended, normoactive bowel sounds, no guarding, no rebound, no hepatosplenomegaly, no masses. EXTREMITIES: 2+ pulses, warm, well-perfused, no edema. NEUROLOGICAL: Cranial nerves II through XII grossly intact. Normal speech, gait not observed. PSYCH: Normal mood, normal affect. SKIN: Warm, dry, normal turgor, no rashes or lesions noted. LABS Laboratory Results - last 24 hr 12/03/16 06:20 Sodium 138 Potassium 4.5 D Chloride 101 Carbon Dioxide 28 Anion Gap 9 BUN 22 H Creatinine 1.7 H Random Glucose 85 Calcium 8.7 HOSPITAL COURSE: Date of Admission:11/30/16 Date of Discharge: 12/03/16 Mr. Martinez is a 71yo M with PMH morbid obesity, HTN, CKD, psorasis presented with progressively worsening SOB x3 days due to acute respiratory distress due to new onset diastolic heart failure. weight in day of discharge reported as 344. clinically improved on lasix IV and now transitioned to torsemide 40 po. plan to receive 40mg today and d/c on 20mg. evaluated with pre and post and qualified for home O2 as O2 sat reportd to drop to 84% on exertion.will need repeat labs this week to monitor electrolytes. encouraged to weigh himself daily and call clinical assistant professor if more than 3 lb weight gain for dose adjustments. In term of RLE swelling, improve, doppler is negative for DVT Patient has morbid obesity need for lifestyle changes. dietary eval with goal to loose 1 lb/week CKD at baseline 1.5. slight increase but near baseline. will monitor while on diuretic and follow up as out patient HTN- controlled. monitor Plan d/w present at bedside. all questions answered. verbalized understanding and agreement with plan. d/c home today with visiting nurse and 3 L of oxygen to keep O2 sat over 90 %. Minutes to complete discharge: 40 Discharge Summary Reason For Visit: PULMONARY EDEMA Current Active Problems CKD (chronic kidney disease) (Acute) Hypoxia (Acute) Pulmonary edema (Acute) Condition: Stable - Instructions Diet, Activity, Other Instructions: You have been admitted for shortness of breath, you have been treated with diuretics and Oxygen Your home medications have changed. Please take your medicine as prescribed. Follow a low salt diet, avoid eating a lot of cheese and indian meats as they have high salt content. Slowly increase your activity as tolerated. Please use oxygen at 4 liters by nasal cannula when exerting yourself to keep the saturation over 90 %, and reassess with your primary care physician Please follow up with your primary care physician within a week and clinical assistant professor this month. Please make sure you measure your weight daily. Please call your clinical assistant professor if you notice more than 2-3 pound weight gain as they may instruct you to adjust your medication. Please resume your daily activity as tolerated If you develop fever, chills, shortness of breath or your symptoms worsen come back to the emergency room You will be discharged home with visiting nurse. Referrals: Shereen Tsai MD [Staff Physician] - Jhonatan Faustin MD [Primary Care Provider] - 1 Week Disposition: VNS/HOME HEALTH CARE - Home Medications Comprehensive Discharge Medication List: Ambulatory Orders Pantoprazole Sodium [Protonix -] 40 mg PO DAILY #30 tab 08/11/16 Cholecalciferol (Vitamin D3) [Vitamin D3] 2,000 unit PO ASDIR tablet 08/17/16 Zolpidem Tartrate [Ambien] 10 mg PO HS 10/22/16 Losartan Potassium [Cozaar -] 50 mg PO DAILY 11/04/16 Torsemide [Demadex -] 20 mg PO DAILY #30 tablet 12/03/16 This patient is new to me today: No Emergency Visit: Yes ED Registration Date: 11/30/16 Care time: The patient presented to the Emergency Department on the above date and was hospitalized for further evaluation of their emergent condition. Critical Care patient: No - Discharge Referral Referred to [facility] Med [facility].: No
--- NOTE | 2016-12-03 15:21 | PN ---
Progress Note (short form) - Note Progress Note: Vascular Surgery pt seen and examined with at bedside. pt with bl venous stasis. Pt with psorasis bl lower ext. Sees [facility] as outpt. Pt needs compression with andrew Pt will come next week to wound care clinic for further workup Burton hernadez DO
[2016-12-03 15:49] VITALS: BP 129/61; PULSE 58
[2016-12-03 15:57] VITALS: TEMP 97.6
== END 2016-12-03 17:59 | disposition home health service (06) | DRG 291 ==
LOC: JER 09:30 → JERBED 10:42 → JICU 13:30 → J6S 12-01 17:24
PROVIDERS: ADMIT Internal Medicine; ATTEND Internal Medicine
DX: I13.0 Hypertensive heart and chronic kidney disease with heart failure and stage 1 through stage 4 chronic kidney disease, or unspecified chronic kidney disease (principal); J96.01 Acute respiratory failure with hypoxia; I50.31 Acute diastolic (congestive) heart failure; Z68.42 Body mass index [BMI] 45.0-49.9, adult; E66.01 Morbid (severe) obesity due to excess calories; L40.9 Psoriasis, unspecified; G62.9 Polyneuropathy, unspecified; G47.33 Obstructive sleep apnea (adult) (pediatric); N18.9 Chronic kidney disease, unspecified; K29.60 Other gastritis without bleeding; Z87.891 Personal history of nicotine dependence; I87.8 Other specified disorders of veins
CPT/HCPCS: 36415; 36600; 71010-TC; 80048; 80053; 80061; 82375; 82803; 83036; 83050; 83721; 83735; 83880; 84100; 84443; 84484; 85025; 85379; 85610; 85730; 87081; 93005; 93010; 93306-TC; 93970-TC; 94010; 94660; 94761; 97116-GP; 97161-GP; 99283-25; J1644

== ENCOUNTER 2017-08-21 11:02 | Emergency (ER) | payer OTHER, MEDICARE ==
[2017-08-21 11:06] VITALS: BP 156/70; PULSE 61; TEMP 97.5; BMI 39.4
--- NOTE | 2017-08-21 11:08 | PDOC ---
History of Present Illness <Edd Keene - Last Filed: 08/21/17 16:47> - General History Source: Patient Exam Limitations: No Limitations - History of Present Illness Initial Comments: 08/21/17 11:09 HISTORY OF PRESENT ILLNESS: Mr Martinez is a 71 year old male with a past medical history of morbid obesity, OSMAN , vertigo, HTN, HLD, CKD, gastritis, severe psoriasis who presents to the ER with a complaint of left flank pain. Pt report left flank pain for several days , described as sharp, intermittent No trauma No hematuria No dysuria No fevers or chills Pt had prior kidney stones almost 10 years ago, none since No new skin changes (pt has severe psoriasis) Pain is not worse with movement or deep breath Pt states he had had this pain in the past, it typically resolves within 1-2 days Pt states he came in because pain did not go away No midline back pain No bowel or bladder incontinence Recent Travel: no PAST MEDICAL HISTORY: as above Social History: Smoking:quit 20 years ago Alcohol:no Drugs: no Family History: Non contributory Allergies Sulfa (Sulfonamide Antibiotics) Allergy (Unknown, Verified 11/30/16 10:29) HOME MEDICATIONS: Protonix, Ambien, Cozaar REVIEW OF SYSTEMS GENERAL/CONSTITUTIONAL: No: fever, chills, weakness, loss of appetite. HEAD, EYES, EARS, NOSE AND THROAT: No: change in vision, ear pain, discharge, sore throat, throat swelling. CARDIOVASCULAR: No: chest pain, lightheadedness, palpitations, syncope RESPIRATORY: No: cough, shortness of breath, wheezing, hemoptysis, stridor. GASTROINTESTINAL: No: nausea, vomiting, diarrhea, abdominal cramping, rectal bleeding, constipation. GENITOURINARY: No: dysuria, hematuria, frequency, urgency, flank pain. MUSCULOSKELETAL: No: back pain, neck pain, joint pain, muscle swelling or pain SKIN AND BREASTS: No: lesions, pallor, rash or easy bruising. NEUROLOGIC: No: headache, vertigo, paresthesias, weakness ENDOCRINE: No: unexplained weight gain or loss HEMATOLOGIC/LYMPHATIC: No: anemia, easy bleeding, swelling nodes. PHYSICAL EXAMINATION GENERAL: Pleasant Male sitting up in bed, comfortable appearing Awake, alert, and fully oriented, in no acute distress. HEAD: Normal with EYES: Pupils equal, round and reactive to light, NECK: Normal range of motion, supple without lymphadenopathy LUNGS: Breath sounds equal decreased, clear to auscultation bilaterally. No wheezes, and no crackles. No accessory muscle use. HEART: distant heart sounds, Regular rate and rhythm, normal S1 and S2 without murmur, rub or gallop. ABDOMEN: obese, Soft, nontender, mild left flank pain, no guarding, no rebound , mile Left lower abdominal tenderness MUSCULOSKELETAL: Normal range of motion at all joints. No bony deformities (+) Left CVA tenderness. UPPER EXTREMITIES: 2+ pulses, warm, well-perfused. LOWER EXTREMITIES: 2+ pulses, warm, well-perfused. No calf tenderness. bilateral venous stasis changes, scattered scabbed over and open small areas of skin breakdown, NEUROLOGICAL: Cranial nerves II-XII intact. Normal speech. PSYCHIATRIC: Cooperative. Good eye contact. Appropriate mood and affect. SKIN: Warm, dry, normal turgor, (+) psoriasis severe bilateral lower extremities , plaque on left flank 08/21/17 11:48 08/21/17 11:53 <Jacque Rojas - Last Filed: 08/23/17 11:43> - General Chief Complaint: Pain, Acute Stated Complaint: left flank pain Time Seen by Provider: 08/21/17 11:03 Past History <Edd Keene - Last Filed: 08/21/17 16:47> - Past Medical History Cardiac Disorders: Yes (sob, htn) COPD: No GI Disorders: Yes (GERD, gastritis,) HTN: Yes Hypercholesterolemia: Yes Kidney Stones: Yes - Surgical History Cardiac Surgery: No - Suicide/Smoking/Psychosocial Hx Smoking Status: Yes Smoking History: Former smoker Have you smoked in the past 12 months: No Number of Cigarettes Smoked Daily: 0 If you are a former smoker, when did you quit?: 1989 Information on smoking cessation initiated: No Hx Alcohol Use: No Drug/Substance Use Hx: No Substance Use Type: None Hx Substance Use Treatment: No <Jacque Rojas - Last Filed: 08/23/17 11:43> - Past Medical History Allergies/Adverse Reactions: Allergies Allergy/AdvReac Type Severity Reaction Status Date / Time Sulfa (Sulfonamide Allergy Unknown Verified 08/21/17 11:06 Antibiotics) Home Medications: Ambulatory Orders Losartan Potassium [Cozaar -] 50 mg PO DAILY 11/04/16 Amlodipine Besylate [Norvasc -] 10 mg PO DAILY 04/19/17 Aspirin [ASA -] 81 mg PO DAILY 04/19/17 Acetaminophen W/ Codeine #3 [Tylenol # 3 -] 1 tab PO BID #10 tablet MDD 2 Zolpidem Tartrate [Ambien] 5 mg PO HS 08/21/17 *Physical Exam - Vital Signs Last Vital Signs Temp Pulse Resp BP Pulse Ox 97.5 F L 61 18 156/70 98 08/21/17 11:03 08/21/17 11:03 08/21/17 11:03 08/21/17 11:03 08/21/17 11:03 <Edd Keene - Last Filed: 08/21/17 16:47> - Vital Signs Last Vital Signs Temp Pulse Resp BP Pulse Ox 97.5 F L 61 18 156/70 98 08/21/17 11:03 08/21/17 11:03 08/21/17 11:03 08/21/17 11:03 08/21/17 11:03 <Jacque Rojas - Last Filed: 08/23/17 11:43> ED Treatment Course - LABORATORY CBC & Chemistry Diagram: 08/21/17 11:50 08/21/17 11:50 - ADDITIONAL ORDERS Additional order review: Laboratory Results 08/21/17 08/21/17 13:44 11:50 Sodium 136 Potassium 4.1 Chloride 104 Carbon Dioxide 25 Anion Gap 7 L BUN 19 H Creatinine 1.3 Creat Clearance w eGFR 54.11 Random Glucose 89 Calcium 9.1 Total Bilirubin 0.9 AST 19 ALT 16 Alkaline Phosphatase 77 Total Protein 7.6 Albumin 3.9 Urine Color Miranda Urine Appearance Clear Urine pH 6.0 Ur Specific [place] 1.010 Urine Protein Negative Urine Glucose (UA) Negative Urine Ketones 1+ H Urine Blood Negative Urine Nitrite Negative Urine Bilirubin Negative Urine Urobilinogen 0.2 Ur Leukocyte Esterase Negative 08/21/17 11:50 RBC 5.15 MCV 85.1 MCHC 33.5 RDW 14.1 MPV 7.2 L Neutrophils % 73.5 Lymphocytes % 10.2 Monocytes % 6.1 Eosinophils % 9.5 H Basophils % 0.7 <Edd Kenee - Last Filed: 08/21/17 16:47> - LABORATORY CBC & Chemistry Diagram: 08/21/17 11:50 08/21/17 11:50 <Jacque Rojas - Last Filed: 08/23/17 11:43> Medical Decision Making - Medical Decision Making 08/21/17 15:[address] Daniel Hernandez @15:30pm. Awaiting call back. 08/21/17 16:[address] Impression: No CT evidence or urolithiasis or hydronephrosis. Area there is been no obvious interval change comparison to a prior CT study. Mild splenomegaly There is partial imagining of left atrial dilatation. <Edd Keene - Last Filed: 08/21/17 16:47> - Medical Decision Making 08/21/17 11:52 71 yo M presenting with left flank pain which has been present for almost 1 week DD: Pyelonephritis, Nephrolithiasis, Musculoskeletal pain Will do : LAbs UA Urine culture US Pain meds offered, pt refused 08/21/17 14:32 Laboratory Tests 08/21/17 08/21/17 08/21/17 11:50 11:50 13:44 WBC 6.9 Hgb 14.7 Hct 43.8 Plt Count 261 Absolute Neuts (auto) 5.1 Neutrophils % 73.5 Sodium 136 Potassium 4.1 Chloride 104 Carbon Dioxide 25 BUN 19 H Creatinine 1.3 Random Glucose 89 Urine Ketones 1+ H Urine Blood Negative Urine Nitrite Negative Ur Leukocyte Esterase Negative 08/21/17 15:42 CT no acute changes Will contact PMD Will discharge to home Likely musculoskeletal pain Clinical Impression: musculoskeletal pain, initial presentation <Jacque Rojas - Last Filed: 08/23/17 11:43> *DC/Admit/Observation/Transfer <Edd Keene - Last Filed: 08/21/17 16:47> - Discharge Dispostion Decision to Admit order: No <Jacque Rojas - Last Filed: 08/23/17 11:43> Diagnosis at time of Disposition: Left flank pain - Discharge Dispostion Disposition: HOME Condition at time of disposition: Stable - Prescriptions Prescriptions: Acetaminophen W/ Codeine #3 [Tylenol # 3 -] 1 tab PO BID #10 tablet MDD 2 - Patient Instructions Printed Discharge Instructions: DI for Flank Pain, DI for Musculoskeletal Pain Additional Instructions: Mr Martinez Thanks for coming in to the ER today Please be sure to follow up with your primary care physician and your renal doctor Return to the ER for any other concerns or complaint Please take motrin and tylenol in alternation for pain as needed Monitor for fevers chills worsening pain
[2017-08-21 12:08] LABS: BASO % 0.7 % (0-2.0); EOS % 9.5 % (0-4.5); HEMATOCRIT 43.8 % (35.4-49); HEMOGLOBIN 14.7 GM/dl (11.7-16.9); LYMPH % 10.2 % (8-40); MCH 28.6 pg (25.7-33.7); MCHC 33.5 g/dl (32.0-35.9); MEAN CELL VOLUME 85.1 fl (80-96); MEAN PLT VOLUME 7.2 fl (7.5-11.1); MONO % 6.1 % (3.8-10.2); NEUT % 73.5 % (42.8-82.8); PLATELET COUNT 261 K/MM3 (134-434); RBC 5.15 M/mm3 (4.00-5.60); RDW 14.1 % (11.9-15.9); WHITE BLOOD COUNT 6.9 K/mm3 (4.0-10.8)
[2017-08-21 12:16] LABS: ALBUMIN 3.9 g/dl (3.5-5.0); ALK PHOS 77 U/L (32-92); ANION GAP 7 (8-16); BILIRUBIN,TOTAL 0.9 mg/dl (0.2-1.0); BLOOD UREA NITROGEN 19 mg/dl (7-18); CALCIUM 9.1 mg/dl (8.4-10.2); CHLORIDE 104 mmol/L (98-107); CO2 25 mmol/L (22-28); CREATININE 1.3 mg/dl (0.6-1.3); GLUCOSE,RANDOM 89 mg/dl (74-106); POTASSIUM 4.1 mmol/L (3.5-5.1); SGOT/AST 19 U/L (10-42); SGPT/ALT 16 U/L (10-40); SODIUM 136 mmol/L (136-145); TOT PROT 7.6 g/dl (6.4-8.3)
[2017-08-21 14:08] LABS: URINE APPEARANCE Clear; URINE BILIRUBIN Negative (NEGATIVE); URINE COLOR AMBER; URINE GLUCOSE (UA) Negative (NEGATIVE); URINE KETONE 1+ (NEGATIVE); URINE LEUK ESTERASE Negative (NEGATIVE); URINE NITRITE Negative (NEGATIVE); URINE PROTEIN Negative (NEGATIVE); URINE UROBILINOGEN 0.2 (0.2-1.0)
== END 2017-08-21 16:16 | disposition home or self-care (01) ==
LOC: FER 11:02
DX: R10.32 Left lower quadrant pain (principal); E78.5 Hyperlipidemia, unspecified; K29.70 Gastritis, unspecified, without bleeding; L40.9 Psoriasis, unspecified; G47.33 Obstructive sleep apnea (adult) (pediatric); R42 Dizziness and giddiness; I12.9 Hypertensive chronic kidney disease with stage 1 through stage 4 chronic kidney disease, or unspecified chronic kidney disease; N18.9 Chronic kidney disease, unspecified; Z87.891 Personal history of nicotine dependence; E66.01 Morbid (severe) obesity due to excess calories; Z68.39 Body mass index [BMI] 39.0-39.9, adult
CPT/HCPCS: 36415; 74176; 80053; 81003; 85025; 87086; 99283-25

== ENCOUNTER 2017-11-01 12:46 | Emergency (ER) | payer OTHER, MEDICARE ==
[2017-11-01 13:05] VITALS: BP 162/81; PULSE 61; TEMP 98.5; BMI 39.9
--- NOTE | 2017-11-01 13:05 | PDOC ---
Attending Attestation - Resident Resident Name: AnuragMoustapha mcmanus - ED Attending Attestation I have performed the following: I have examined & evaluated the patient, The case was reviewed & discussed with the resident, I agree w/resident's findings & plan, Exceptions are as noted - HPI HPI: 11/01/17 18:39 Agree with Residents HPI - Physicial Exam PE: 11/01/17 18:39 Agree with Residents PE - Medical Decision Making 11/01/17 18:40 Intermittent palpitations, acute on chronic slightly more frequent today Labs unremarkable EKG sinus rhythm Patient feels better we'll discharge home with PCP follow-up Findings, need for follow-up, strict return instructions discussed with patient. Heart Score/ECG Review - ECG Impressions Comment:: 11/01/17 18:41 Sinus rhythm [address] elevations no T-wave inversions. Interpreted by me.
--- NOTE | 2017-11-01 13:13 | PDOC ---
History of Present Illness - General Chief Complaint: Palpitations Stated Complaint: PALPITATIONS Time Seen by Provider: 11/01/17 12:52 History Source: Patient Exam Limitations: No Limitations - History of Present Illness Initial Comments: 11/01/17 13:07 Patient is a 72M with history of anxiety, CHF, HTN, and psoriasis here today complaining of 1 week of intermittent palpitations. Patient denies chest pain, shortness of breath, leg swelling. Patient denies fevers, chills, nausea, vomiting. Patient denies exertional component, reports that he thinks this is his anxiety. Patient reports increased stress at home 2/2 a mass found in ' s neck and financial pressures. Endorses compliance with medications, has close PCP follow up with Dr Ruiz. Patient states that he's coming in today because he wanted to get checked out. Past History - Past Medical History Allergies/Adverse Reactions: Allergies Allergy/AdvReac Type Severity Reaction Status Date / Time Sulfa (Sulfonamide Allergy Unknown Verified 11/01/17 12:53 Antibiotics) Home Medications: Ambulatory Orders Losartan Potassium [Cozaar -] 50 mg PO DAILY 11/04/16 Amlodipine Besylate [Norvasc -] 10 mg PO DAILY 04/19/17 Aspirin [ASA -] 81 mg PO DAILY 04/19/17 Zolpidem Tartrate [Ambien] 5 mg PO HS 08/21/17 Cardiac Disorders: Yes (sob, htn) COPD: No GI Disorders: Yes (GERD, gastritis,) HTN: Yes Hypercholesterolemia: Yes Kidney Stones: Yes Other medical history: NEUROPATHY - Surgical History Cardiac Surgery: No - Suicide/Smoking/Psychosocial Hx Smoking Status: Yes Smoking History: Former smoker Have you smoked in the past 12 months: No Number of Cigarettes Smoked Daily: 0 If you are a former smoker, when did you quit?: 1989 Information on smoking cessation initiated: No Hx Alcohol Use: No Drug/Substance Use Hx: No Substance Use Type: None Hx Substance Use Treatment: No Review of Systems - Review of Systems Comments:: 11/01/17 13:10 GENERAL/CONSTITUTIONAL: No fever or chills. No weakness. HEAD, EYES, EARS, NOSE AND THROAT: No change in vision. No ear pain or discharge. No sore throat. CARDIOVASCULAR: No chest pain or shortness of breath +palpitations RESPIRATORY: No cough, wheezing, or hemoptysis. GASTROINTESTINAL: No nausea, vomiting, diarrhea or constipation. GENITOURINARY: No dysuria, frequency, or change in urination. MUSCULOSKELETAL: No joint or muscle swelling or pain. No neck or back pain. SKIN: No rash NEUROLOGIC: No headache, vertigo, loss of consciousness, or change in strength/ sensation. ENDOCRINE: No increased thirst. No abnormal weight change HEMATOLOGIC/LYMPHATIC: No anemia, easy bleeding, or history of blood clots. ALLERGIC/IMMUNOLOGIC: No hives or skin allergy. *Physical Exam - Vital Signs Last Vital Signs Temp Pulse Resp BP Pulse Ox 98.5 F 61 20 162/81 100 11/01/17 12:47 11/01/17 12:47 11/01/17 12:47 11/01/17 12:47 11/01/17 12:47 - Physical Exam Comments: 11/01/17 13:11 GENERAL: Awake, alert, and fully oriented, in no acute distress HEAD: No signs of trauma, normocephalic, atraumatic EYES: PERRLA, EOMI, sclera anicteric, conjunctiva clear ENT: Auricles normal inspection, hearing grossly normal, nares patent, oropharynx clear without exudates. Moist mucosa NECK: Normal ROM, supple, no lymphadenopathy, JVD, or masses LUNGS: No distress, speaks full sentences, clear to auscultation bilaterally HEART: Regular rate and rhythm, normal S1 and S2, no murmurs, rubs or gallops, peripheral pulses normal and equal bilaterally. ABDOMEN: Soft, nontender, normoactive bowel sounds. No guarding, no rebound. No masses EXTREMITIES: Healing psoriasis lesions in lower legs bilaterally, Normal range of motion, no edema. No clubbing or cyanosis. NEUROLOGICAL: Cranial nerves II through XII grossly intact. Normal speech, normal gait, no focal sensorimotor deficits SKIN: Warm, Dry, normal turgor, no rashes or lesions noted. ED Treatment Course - LABORATORY CBC & Chemistry Diagram: 11/01/17 13:13 11/01/17 13:13 - RADIOLOGY Radiology Studies Ordered: Category Date Time Status CHEST PA & LAT [RAD] Stat Radiology 11/01/17 13:04 Ordered Medical Decision Making - Medical Decision Making 11/01/17 13:12 Patient is 72M with history of HTN, CKD, psoriasis, CHF, anxiety here today complaining of palpitations. Vital signs normal and stable. EKG shows sinus bradycardia with rate of 58. No st elevations/depressions. Normal axis, normal intervals. No significant t wave abnormalities. 11/01/17 13:45 CXR shows no acute cardiopulmonary process. 11/01/17 14:04 CBC, CMP normal. Troponin undetectable. Patient reports feeling well, will discharge home with PCP follow up. *DC/Admit/Observation/Transfer Diagnosis at time of Disposition: Palpitations - Discharge Dispostion Disposition: HOME Condition at time of disposition: Good Decision to Admit order: No - Referrals - Patient Instructions Printed Discharge Instructions: DI for Palpitations Additional Instructions: Please return if you have any new, worsening or concerning symptoms. Please follow up with your PCP this week. - Post Discharge Activity
[2017-11-01 13:44] LABS: ALK PHOS 82 U/L (32-92); ANION GAP 8 MMOL/L (8-16); BILIRUBIN,TOTAL 1.2 mg/dl (0.2-1.0); BLOOD UREA NITROGEN 26 mg/dl (7-18); CALCIUM 9.4 mg/dl (8.4-10.2); CHLORIDE 102 mmol/L (98-107); CO2 26 mmol/L (22-28); CREATININE 1.5 mg/dl (0.6-1.3); GLUCOSE,RANDOM 91 mg/dl (74-106); MAGNESIUM 1.8 mg/dL (1.8-2.4); POTASSIUM 3.8 mmol/L (3.5-5.1); SGOT/AST 20 U/L (10-42); SGPT/ALT 16 U/L (10-40); SODIUM 136 mmol/L (136-145); TOT PROT 7.2 g/dl (6.4-8.3)
[2017-11-01 13:49] LABS: BASO % 0.7 % (0-2.0); EOS % 6.9 % (0-4.5); HEMATOCRIT 43.4 % (35.4-49); HEMOGLOBIN 14.3 GM/dl (11.7-16.9); LYMPH % 12.1 % (8-40); MCH 29.4 pg (25.7-33.7); MEAN CELL VOLUME 88.9 fl (80-96); MEAN PLT VOLUME 7.8 fl (7.5-11.1); MONO % 6.1 % (3.8-10.2); NEUT % 74.2 % (42.8-82.8); PLATELET COUNT 243 K/MM3 (134-434); RBC 4.88 M/mm3 (4.00-5.60); RDW 14.3 % (11.9-15.9); WHITE BLOOD COUNT 6.3 K/mm3 (4.0-10.8)
--- NOTE | 2017-11-04 11:22 | EKG ---
Test Reason : Blood Pressure : / mmHG Vent. Rate : 058 BPM Atrial Rate : 058 BPM P-R Int : 208 ms QRS Dur : 082 ms QT Int : 444 ms P-R-T Axes : 026 005 021 degrees QTc Int : 435 ms SINUS BRADYCARDIA WITH PREMATURE ATRIAL COMPLEXES OTHERWISE NORMAL ECG WHEN COMPARED WITH ECG OF 19-APR-2017 18:40, PREMATURE ATRIAL COMPLEXES ARE NOW PRESENT Confirmed by DAVID GANT, MINO ([id number]) on 11/04/2017 11:22:24 AM Referred By: Confirmed By:MINO HERNANDEZ MD
== END 2017-11-01 14:11 | disposition home or self-care (01) ==
LOC: FER 12:46
DX: R00.2 Palpitations (principal); I10 Essential (primary) hypertension; I50.9 Heart failure, unspecified; F41.9 Anxiety disorder, unspecified
CPT/HCPCS: 36415; 71045-TC-FY; 80053; 83735; 84484; 85025; 93005; 99284-25

== ENCOUNTER 2018-02-21 21:15 | Emergency (ER) | payer OTHER, MEDICARE ==
[2018-02-21 21:27] VITALS: BP 144/76; PULSE 78; TEMP 97.5; BMI 39.5
--- NOTE | 2018-02-21 22:15 | PDOC ---
History of Present Illness - General History Source: Patient Exam Limitations: No Limitations - History of Present Illness Initial Comments: 02/21/18 22:44 The patient is a 72 year old male with a significant past medical history of anxiety, TMJ, OSMAN, CKD, CHF, HTN, kidney stones and psoriasis who presents to the ED with complaints of arm tingling for 3 days. Patient reports 3 days of intermittent bilateral upper extremity tingling that he describes as circulation. Patient states his symptoms are worsened when he wakes up in the morning because he typically sleeps on his left arm. He also states he typically strains his neck when watching TV. Patient states he recently had a Stress Test that was normal. Denies neck pain. Denies arm numbness. Denies headache. Denies fever or chills. Denies chest pain or shortness of breath. Denies abdominal pain, nausea, vomiting, or diarrhea. Denies any other symptoms. PAST MEDICAL HISTORY: anxiety, TMJ, OSMAN, CKD, CHF, HTN, kidney stones and psoriasis PAST SURGICAL HISTORY: no significant history FAMILY HISTORY: no pertinent history SOCIAL HISTORY: Pt lives with family and is employed. MEDICATIONS: reviewed ALLERGIES: As per nursing notes General: No fevers or chills, no weakness, no weight loss HEENT: No change in vision. No sore throat,. No ear pain CardioVascular: No chest pain or shortness of breath Respiratory:No cough, or wheezing. Gastrointestinal: no nausea, vomiting, diarrhea or constipation, No rectal bleeding Genitourinary: No dysuria, hematuria, or frequency Musculoskeletal: + bilateral arm tingling. No joint or muscle pain or swelling Neurologic: No headache, vertigo, dizziness or loss of consciousness Psychiatric: nor depression Skin: No rashes or easy bruising Endocrine: no increased thirst or abnormal weight change Allergic: no skin or latex allergy All other systems reviewed and normal GENERAL: The patient is awake, alert, and fully oriented, in no acute distress. HEAD: Normal with no signs of trauma. EYES: Pupils equal, round and reactive to light, extraocular movements intact, sclera anicteric, conjunctiva clear. EXTREMITIES: Normal range of motion, no edema. Cervical and Thoracic Spine: No tenderness on palpation of the lateral neck, shoulders and upper arms. Strength normal, sensation normal. NEUROLOGICAL: Normal speech, normal gait. PSYCH: Normal mood, normal affect. SKIN: Warm, Dry, normal turgor, no rashes or lesions noted. <Kojo Zarate - Last Filed: 02/21/18 22:44> - General History Source: Patient Exam Limitations: No Limitations - History of Present Illness Initial Comments: 02/21/18 22:51 A portion of this note was documented by scribe services under my direction. I have reviewed the details of the note, within reason, and agree with the documentation with the following case summary and management plan written by me. Patient treated in the ED. Nursing notes are reviewed and incorporated into the medical decision-making. Vital signs reviewed. Assessment plan: This is a 72-year-old male who comes in complaining of tingling in his arms bilateral tingling is intermittent. Patient has no other associated chest pain shortness of breath or weakness in his arms. Patient's neuro exam is normal. Patient had an x-ray of his neck that does show a moderate amount of degenerative changes with some narrowing between the discs this most likely is contributing to his symptoms. Patient has a primary care doctor he can follow up with. Patient was given a one-time dose of Decadron and discharged. <Darlin Causey I - Last Filed: 02/21/18 22:52> - General Chief Complaint: Weakness Stated Complaint: WEAKNESS TO BOTH ARMS FOR 3 DAYS Time Seen by Provider: 02/21/18 21:26 Past History <Kojo Zarate - Last Filed: 02/21/18 22:44> - Past Medical History Cardiac Disorders: Yes (sob, htn) COPD: No GI Disorders: Yes (GERD, gastritis,) HTN: Yes Hypercholesterolemia: Yes Kidney Stones: Yes Other medical history: CERVICAL SPINE PRESSURE,TMJ - Surgical History Cardiac Surgery: No - Suicide/Smoking/Psychosocial Hx Smoking Status: Yes Smoking History: Former smoker Have you smoked in the past 12 months: No Number of Cigarettes Smoked Daily: 0 If you are a former smoker, when did you quit?: 27 YEARS AGO Information on smoking cessation initiated: No Hx Alcohol Use: No Drug/Substance Use Hx: No Substance Use Type: None Hx Substance Use Treatment: No <Darlin Causey I - Last Filed: 02/21/18 22:52> - Past Medical History Allergies/Adverse Reactions: Allergies Allergy/AdvReac Type Severity Reaction Status Date / Time Sulfa (Sulfonamide Allergy Unknown Verified 02/21/18 21:16 Antibiotics) Home Medications: Ambulatory Orders Losartan Potassium [Cozaar -] 50 mg PO DAILY 11/04/16 Amlodipine Besylate [Norvasc -] 10 mg PO DAILY 04/19/17 Zolpidem Tartrate [Ambien] 5 mg PO HS 08/21/17 Pyridoxine HCl (Vitamin B6) [Vitamin B-6] 50 mg PO WEEKLY 02/21/18 *Physical Exam - Vital Signs Last Vital Signs Temp Pulse Resp BP Pulse Ox 97.5 F L 78 18 144/76 98 02/21/18 21:16 02/21/18 21:16 02/21/18 21:16 02/21/18 21:16 02/21/18 21:16 <Kojo Zarate - Last Filed: 02/21/18 22:44> - Vital Signs Last Vital Signs Temp Pulse Resp BP Pulse Ox 97.5 F L 78 18 144/76 98 02/21/18 21:16 02/21/18 21:16 02/21/18 21:16 02/21/18 21:16 02/21/18 21:16 <Darlin Causey I - Last Filed: 02/21/18 22:52> Moderate Sedation - Procedure Monitoring Vital Signs: Procedure Monitoring Vital Signs Temperature 97.5 F L 02/21/18 21:16 Pulse Rate 78 02/21/18 21:16 Respiratory Rate 18 02/21/18 21:16 Blood Pressure 144/76 02/21/18 21:16 O2 Sat by Pulse Oximetry (%) 98 02/21/18 21:16 <Kojo Zarate - Last Filed: 02/21/18 22:44> - Procedure Monitoring Vital Signs: Procedure Monitoring Vital Signs Temperature 97.5 F L 02/21/18 21:16 Pulse Rate 78 02/21/18 21:16 Respiratory Rate 18 02/21/18 21:16 Blood Pressure 144/76 02/21/18 21:16 O2 Sat by Pulse Oximetry (%) 98 02/21/18 21:16 <Darlin Causey I - Last Filed: 02/21/18 22:52> *DC/Admit/Observation/Transfer - Attestations Scribe Attestion: 02/21/18 22:44 Documentation prepared by Kojo Zarate, acting as phlebotomist medical lab assistant for Darlin Causey MD <Kojo Zarate - Last Filed: 02/21/18 22:44> - Discharge Dispostion Decision to Admit order: No <Darlin Causey I - Last Filed: 02/21/18 22:52> Diagnosis at time of Disposition: Cervical radiculopathy - Discharge Dispostion Disposition: HOME Condition at time of disposition: Stable - Patient Instructions Additional Instructions: I'm giving you a one-time dose of an anti-inflammatory that should improve the symptoms. However when you follow-up with your doctor make sure your doctor knows about the symptoms and follow up with your doctor regarding the x-ray that I was done. The x-ray does show some arthritis and degenerative changes of the neck that most likely are the result of your symptoms Return to the emergency department immediately with ANY new, persistent or worsening symptoms. Continue any medications as previously prescribed by your physician. You should follow up with your primary doctor as soon as possible regarding today's emergency department visit. . Please make sure your doctor reviews the results of your emergency evaluation. Thank you for coming to the Emergency Department today for your care. It was a pleasure to see you today. Please note that your evaluation is INCOMPLETE until you follow-up with your doctor.
[2018-02-21] MEDS ORDERED: DEXAMETHASONE SOD PHOSPHATE 10 MG/1 ML VIAL IM ONE (22:48)
[2018-02-21] MEDS ORDERED: DEXAMETHASONE SOD PHOSPHATE 10 MG/1 ML VIAL ONE (22:52)
== END 2018-02-21 22:58 | disposition home or self-care (01) ==
LOC: FER 21:15
PROC: 3E023NZ Introduction of Analgesics, Hypnotics, Sedatives into Muscle, Percutaneous Approach (ICD-10-PCS; principal; 2018-02-21)
DX: M54.12 Radiculopathy, cervical region (principal); I12.9 Hypertensive chronic kidney disease with stage 1 through stage 4 chronic kidney disease, or unspecified chronic kidney disease; N18.9 Chronic kidney disease, unspecified; G47.33 Obstructive sleep apnea (adult) (pediatric); L40.9 Psoriasis, unspecified; K21.9 Gastro-esophageal reflux disease without esophagitis; E78.00 Pure hypercholesterolemia, unspecified; Z87.442 Personal history of urinary calculi; Z88.2 Allergy status to sulfonamides
CPT/HCPCS: 72050-TC-FY; 99281-25; J1100

== ENCOUNTER 2018-03-17 13:50 | Emergency (ER) | payer OTHER, MEDICARE ==
--- NOTE | 2018-03-17 14:02 | PDOC ---
History of Present Illness - History of Present Illness Initial Comments: The patient is a 72 year old male with a significant past medical history of anxiety, TMJ, OSMAN, CKD, CHF, HTN, arthritis, b/l vestibular dysfunction (dx Aug 2017), kidney stones and psoriasis who presents to the ED with complaints of a 3 months of left arm and chest pain. Patient is well know to our ER. Patient states that over the last 3 months he has been experiencing intermittent left upper arm pain that radiates to his left chest. He also notes some epigastric discomfort. He states that it is not associated with exertion. He does note that he sleeps on his left side with his arm curled up. He states that he believes it is musculoskeletal in nature but wanted to come to the ER just to be safe. Patient notes that he has lost about 100 lbs since 2016. Patient states he recently had a Stress Echo in July 2017 that was normal. He has an appointment with his instrument repairer [employer] in May for a routine echo. Denies any recent travel. Denies neck pain. Denies arm numbness. Denies any swelling. Denies headache. Denies fever, chills, cough. Denies shortness of breath. Denies abdominal pain, nausea, vomiting, or diarrhea. Denies any other symptoms. PAST MEDICAL HISTORY: anxiety, TMJ, OSMAN, CKD, CHF, HTN, arthritis, kidney stones and psoriasis PAST SURGICAL HISTORY: no significant history FAMILY HISTORY: no pertinent history SOCIAL HISTORY: Pt lives with family and is employed. Former smoker (quit 27 years ago) MEDICATIONS: reviewed ALLERGIES: Sulfa Acting Instructor: Dr. Jensen <Christine Vann - Last Filed: 03/17/18 14:59> <Víctor Sanders - Last Filed: 03/17/18 18:53> - General Chief Complaint: Pain Stated Complaint: LEFT CHEST MID ABD PAIN Time Seen by Provider: 03/17/18 14:02 Past History <Christine Vann - Last Filed: 03/17/18 14:59> - Past Medical History Cardiac Disorders: Yes (sob, htn) COPD: No GI Disorders: Yes (GERD, gastritis,) HTN: Yes Hypercholesterolemia: Yes Kidney Stones: Yes - Surgical History Cardiac Surgery: No - Suicide/Smoking/Psychosocial Hx Smoking Status: Yes Smoking History: Former smoker Have you smoked in the past 12 months: No Number of Cigarettes Smoked Daily: 0 If you are a former smoker, when did you quit?: 27 YEARS AGO Hx Alcohol Use: No Drug/Substance Use Hx: No Substance Use Type: None Hx Substance Use Treatment: No <Víctor Sanders - Last Filed: 03/17/18 18:53> - Past Medical History Allergies/Adverse Reactions: Allergies Allergy/AdvReac Type Severity Reaction Status Date / Time Sulfa (Sulfonamide Allergy Unknown Verified 03/17/18 14:01 Antibiotics) Home Medications: Ambulatory Orders Losartan Potassium [Cozaar -] 50 mg PO DAILY 11/04/16 Amlodipine Besylate [Norvasc -] 10 mg PO DAILY 04/19/17 Zolpidem Tartrate [Ambien] 5 mg PO HS 08/21/17 Pyridoxine HCl (Vitamin B6) [Vitamin B-6] 50 mg PO WEEKLY 02/21/18 Finasteride [Proscar] 5 mg PO DAILY 03/17/18 Review of Systems - Review of Systems Comments:: ROS: A complete review of 10 out of 10 review of systems is taken and is negative apart from what is previously mentioned below and in the HPI. Constitutional: no recent illness; no fever ENT: no sore throat Cardiovascular: no palpitations; +left sided chest pain Pulmonary: no cough; no trouble breathing Gastrointestinal: +epigastric discomfort. No nausea; no vomiting; no diarrhea Genitourinary: No urinary problems; no hematuria Skin: No rash Lymph system: No swollen glands Musculoskeletal: +left upper arm pain. No joint swelling Neurological: No weakness; No numbness; No headache; no vertigo; no lightheadedness Psychiatric:No anxiety; no depression 03/17/18 14:59 <Christine Vann - Last Filed: 03/17/18 14:59> *Physical Exam - Vital Signs Last Vital Signs Temp Pulse Resp BP Pulse Ox 97.7 F 75 20 170/83 99 03/17/18 14:00 03/17/18 14:00 03/17/18 14:00 03/17/18 14:00 03/17/18 14:00 - Physical Exam Comments: Vitals: Triage Vital signs reviewed General Appearance: no acute distress, well nourished well developed Neck: Supple; No Nuchal rigidity Chest Wall: Nontender Cardiac: Regular rate and rhythm, no murmurs, no rubs, no gallops Lungs: Clear to auscultation bilateral, good air movement bilaterally Abdomen: Soft, protuberant, non distended, normal bowel sounds, non tender to palpation Extremities: Full range of motion to all extremities, no cyanosis, clubbing, or edema Skin: Warm and dry, no rashes or lesions, no rash, no petechiae Neuro: AOX3; Cranial Nerves 2-12 grossly intact, Strength intact to all extremities, Sensation intact to all extremities, gait normal Psych: Normal mood, normal affect <Christine Vann - Last Filed: 03/17/18 14:59> Moderate Sedation - Procedure Monitoring Vital Signs: Procedure Monitoring Vital Signs Temperature 97.7 F 03/17/18 14:00 Pulse Rate 75 03/17/18 14:00 Respiratory Rate 20 03/17/18 14:00 Blood Pressure 170/83 03/17/18 14:00 O2 Sat by Pulse Oximetry (%) 99 03/17/18 14:00 <Christine Vann - Last Filed: 03/17/18 14:59> Heart Score/ECG Review - History History: Slightly suspicious - Electrocardiogram EKG: Normal - Age Age: >/= 65 - Risk Factors Risk Factors Heart Score: Yes Hx Hypercholesterolemia, Yes Hx Hypertension Based on the list above the patient has:: 1-2 risk factors - Troponin Troponin: </= normal limit - Score Heart Score - Total: 3 - ECG Impressions Comment:: 03/17/18 15:45 EKG performed at 1421 normal sinus rhythm no ST elevations noted T-wave inversions. Interpreted by me. <Víctor Sanders - Last Filed: 03/17/18 18:53> ED Treatment Course - LABORATORY CBC & Chemistry Diagram: 03/17/18 14:25 03/17/18 14:25 <Christine Vann - Last Filed: 03/17/18 14:59> - LABORATORY CBC & Chemistry Diagram: 03/17/18 14:25 03/17/18 14:25 <Víctor Sanders - Last Filed: 03/17/18 18:53> Medical Decision Making - Medical Decision Making 03/17/18 15:45 Patient well appearing, no apparent distress several month history of intermittent epigastric and left-sided chest and arm discomfort very positional nonexertional Nonischemic EKG heart score 3 negative troponin history and examination consistent most likely with radiculopathy versus musculoskeletal discomfort Patient will follow up with his instrument repairer [employer] next week and return to ED for any severe worsening symptoms or for any concerns Findings, the need for follow-up and strict return instructions discussed with patient and family. 03/17/18 18:53 <Víctor Sanders - Last Filed: 03/17/18 18:53> *DC/Admit/Observation/Transfer - Attestations Scribe Attestion: 03/17/18 15:01 Documentation prepared by Christine Vann, acting as medical hospital sales for Víctor Sanders MD. <Christine Vann - Last Filed: 03/17/18 14:59> - Discharge Dispostion Decision to Admit order: No <Víctor Sanders - Last Filed: 03/17/18 18:53> Diagnosis at time of Disposition: Atypical chest pain - Discharge Dispostion Disposition: HOME Condition at time of disposition: Good - Referrals Referrals: Theo Jensen MD [Staff Physician] - - Patient Instructions Printed Discharge Instructions: DI for Atypical Chest Pain Additional Instructions: Follow-up with your rn on site and her instrument repairer [employer] within one week. Return to ED for any severe worsening symptoms or for any concerns.
[2018-03-17 14:08] VITALS: TEMP 97.7; BMI 40.2
[2018-03-17 15:13] LABS: ALBUMIN 3.8 g/dl (3.5-5.0); ALK PHOS 91 U/L (32-92); ANION GAP 9 MMOL/L (8-16); BILIRUBIN,TOTAL 0.8 mg/dl (0.2-1.0); BLOOD UREA NITROGEN 20 mg/dl (7-18); CALCIUM 9.2 mg/dl (8.4-10.2); CHLORIDE 106 mmol/L (98-107); CO2 22 mmol/L (22-28); CREATININE 1.3 mg/dl (0.6-1.3); GLUCOSE,RANDOM 92 mg/dl (74-106); POTASSIUM 4.1 mmol/L (3.5-5.1); SGOT/AST 19 U/L (10-42); SGPT/ALT 16 U/L (10-40); SODIUM 137 mmol/L (136-145)
[2018-03-17 15:22] LABS: EOS % 6.1 % (0-4.5); HEMATOCRIT 43.5 % (35.4-49); HEMOGLOBIN 14.6 GM/dl (11.7-16.9); LYMPH % 14.8 % (8-40); MCH 29.6 pg (25.7-33.7); MCHC 33.6 g/dl (32.0-35.9); MEAN CELL VOLUME 88.3 fl (80-96); MEAN PLT VOLUME 7.4 fl (7.5-11.1); MONO % 7.1 % (3.8-10.2); PLATELET COUNT 224 K/MM3 (134-434); RBC 4.93 M/mm3 (4.00-5.60); RDW 13.5 % (11.9-15.9)
[2018-03-17 15:54] VITALS: BP 155/75; PULSE 84
--- NOTE | 2018-03-18 16:58 | EKG ---
Test Reason : Blood Pressure : / mmHG Vent. Rate : 062 BPM Atrial Rate : 062 BPM P-R Int : 200 ms QRS Dur : 080 ms QT Int : 430 ms P-R-T Axes : 105 022 029 degrees QTc Int : 436 ms NORMAL SINUS RHYTHM NONSPECIFIC ST ABNORMALITY BORDERLINE ECG Confirmed by MD JOSE RAUL, JEROMY ([id number]) on 03/18/2018 4:58:22 PM Referred By: GIORGI REDDY Confirmed By:JEROMY BLUNT MD
== END 2018-03-17 16:31 | disposition home or self-care (01) ==
LOC: FER 13:57
DX: R07.89 Other chest pain (principal); Z87.891 Personal history of nicotine dependence; I10 Essential (primary) hypertension; E78.00 Pure hypercholesterolemia, unspecified
CPT/HCPCS: 36415; 71045-TC-FY; 80053; 84484; 85025; 93005; 99283-25

== ENCOUNTER 2018-08-04 22:17 | Emergency (ER) | payer OTHER, MEDICARE | END 2018-08-04 23:28 | disposition home or self-care (01) | LOC: FER 22:17 ==

== ENCOUNTER 2018-08-17 12:07 | Emergency (ER) | payer OTHER, MEDICARE ==
--- NOTE | 2018-08-17 12:37 | PDOC ---
History of Present Illness - General Chief Complaint: Respiratory Stated Complaint: COUGH Time Seen by Provider: 08/17/18 12:36 History Source: Patient Exam Limitations: No Limitations - History of Present Illness Initial Comments: 72 yo M history HTN, HL presents with cough for the past few days. He states that he feels as if he needs to expectorate but cannot get the mucous out. He has not tried mucinex. He started on a Z-pack 3 days [address] Dr[address] Zhu when he was having productive cough with yellow sputum. He states the cough has improved significantly, although he does have wheezing at times. Denies cp, SOB , fever. Past History - Past Medical History Allergies/Adverse Reactions: Allergies Allergy/AdvReac Type Severity Reaction Status Date / Time Sulfa (Sulfonamide Allergy Unknown Verified 08/17/18 12:08 Antibiotics) Home Medications: Ambulatory Orders Losartan Potassium [Cozaar -] 50 mg PO DAILY 11/04/16 Amlodipine Besylate [Norvasc -] 10 mg PO DAILY 04/19/17 Zolpidem Tartrate [Ambien] 5 mg PO HS 08/21/17 Pyridoxine HCl (Vitamin B6) [Vitamin B-6] 50 mg PO WEEKLY 02/21/18 Atorvastatin Ca [Lipitor] 5 mg PO HS 08/17/18 Azithromycin 250 mg PO ASDIR 08/17/18 Cardiac Disorders: Yes (sob, htn) COPD: No GI Disorders: Yes (GERD, gastritis,) HTN: Yes Hypercholesterolemia: Yes Kidney Stones: Yes - Surgical History Cardiac Surgery: No - Immunization History Immunization Up to Date: Yes - Suicide/Smoking/Psychosocial Hx Smoking Status: Yes Smoking History: Former smoker Have you smoked in the past 12 months: No Number of Cigarettes Smoked Daily: 0 If you are a former smoker, when did you quit?: 27 YEARS AGO Hx Alcohol Use: No Drug/Substance Use Hx: No Substance Use Type: None Hx Substance Use Treatment: No Review of Systems - Review of Systems Able to Perform ROS?: Yes Comments:: GENERAL/CONSTITUTIONAL: No fever or chills. No weakness. HEAD, EYES, EARS, NOSE AND THROAT: No change in vision. No ear pain or discharge. No sore throat. CARDIOVASCULAR: No chest pain or shortness of breath. RESPIRATORY: +Cough and wheezing. No hemoptysis. GASTROINTESTINAL: No nausea, vomiting, diarrhea or constipation. GENITOURINARY: No dysuria, frequency, or change in urination. MUSCULOSKELETAL: No joint or muscle swelling or pain. No neck or back pain. SKIN: No rash. NEUROLOGIC: No headache, vertigo, loss of consciousness, or change in strength/ sensation. ENDOCRINE: No increased thirst. No abnormal weight change. HEMATOLOGIC/LYMPHATIC: No anemia, easy bleeding, or history of blood clots. ALLERGIC/IMMUNOLOGIC: No hives or skin allergy. *Physical Exam - Physical Exam Comments: GENERAL: Awake, alert, and fully oriented, in no acute distress. Well-appearing HEAD: No signs of trauma EYES: PERRLA, EOMI, sclera anicteric, conjunctiva clear ENT: Auricles normal inspection, hearing grossly normal, nares patent, oropharynx clear without exudates. Moist mucosa NECK: Normal ROM, supple, no lymphadenopathy, JVD, or masses LUNGS: Breath sounds equal, good air entry B/L. Trace rhonchi B/L. Intermittent dry cough. HEART: Regular rate and rhythm, normal S1 and S2, no murmurs, rubs or gallops ABDOMEN: Soft, nontender, normoactive bowel sounds. No guarding, no rebound. No masses EXTREMITIES: Normal range of motion, no edema. No clubbing or cyanosis. No cords, erythema, or tenderness NEUROLOGICAL: Cranial nerves II through XII grossly intact. Normal speech, normal gait. Motor and sensation intact SKIN: Warm, Dry, normal turgor, no rashes or lesions noted. ED Treatment Course - RADIOLOGY Radiology Studies Ordered: Category Date Time Status CHEST PA & LAT [RAD] Stat Radiology 08/17/18 12:09 Ordered Medical Decision Making - Medical Decision Making 08/17/18 12:55 CXR reviewed, no acute findings. Will give albuterol for bronchospasm. DC home afterwards. 08/17/18 13:44 Results of CXR reviewed with patient. Cough is a bit looser after the neb. Recommended mucinex as an expectorant. Stable for DC home. *DC/Admit/Observation/Transfer Diagnosis at time of Disposition: Cough - Discharge Dispostion Disposition: HOME Condition at time of disposition: Stable Decision to Admit order: No - Referrals - Patient Instructions Printed Discharge Instructions: DI for Cough -- Adult Additional Instructions: Please complete your z-pack. Mucinex as needed if you feel that the mucous is too thick to get out. It is available over the counter, use as directed on box. - Post Discharge Activity
[2018-08-17] MEDS ORDERED: ALBUTEROL SO4 0.083% IH SOL 2.5 MG/3 ML VIAL.NEB. NEB ONE (12:54)
[2018-08-17 13:07] VITALS: BP 138/71; PULSE 81; TEMP 98.4; BMI 32.3
[2018-08-17] MEDS ORDERED: ALBUTEROL SO4 2.5/IPRATROPIUM 0.5 INH SOL 3 ML VIAL.NEB. NEB ONE (13:17)
== END 2018-08-17 13:52 | disposition home or self-care (01) ==
LOC: FER 12:07
PROC: 3E0F7GC Introduction of Other Therapeutic Substance into Respiratory Tract, Via Natural or Artificial Opening (ICD-10-PCS; principal; 2018-08-17)
DX: R05 Cough (principal); Z87.891 Personal history of nicotine dependence; I10 Essential (primary) hypertension; K21.9 Gastro-esophageal reflux disease without esophagitis; E78.00 Pure hypercholesterolemia, unspecified
CPT/HCPCS: 71046-TC-FY; 99282-25

== ENCOUNTER 2018-08-30 21:15 | Emergency (ER) | payer OTHER, MEDICARE ==
[2018-08-30 21:24] VITALS: BP 149/57; PULSE 85; TEMP 98; BMI 40.8
[2018-08-30 23:28] LABS: BASO % 0.4 % (0-2.0); EOS % 2.4 % (0-4.5); HEMATOCRIT 39.9 % (35.4-49); HEMOGLOBIN 13.4 GM/dl (11.7-16.9); LYMPH % 9.3 % (8-40); MCHC 33.5 g/dl (32.0-35.9); MEAN CELL VOLUME 89.4 fl (80-96); MEAN PLT VOLUME 7.3 fl (7.5-11.1); MONO % 10.8 % (3.8-10.2); NEUT % 77.1 % (42.8-82.8); PLATELET COUNT 206 K/MM3 (134-434); RBC 4.47 M/mm3 (4.00-5.60); RDW 13.6 % (11.9-15.9)
[2018-08-30 23:42] LABS: ALBUMIN 3.2 g/dl (3.4-5.0); BILIRUBIN,TOTAL 0.9 mg/dl (0.2-1); CALCIUM 8.2 mg/dl (8.5-10); CREATININE 1.5 mg/dl (0.55-1.3); POTASSIUM 3.7 mmol/L (3.5-5.1); TOT PROT 6.4 g/dl (6.4-8.2)
--- NOTE | 2018-08-31 00:33 | PDOC ---
Documentation entered by Issac Melgoza SCRIBE, acting as scribe for Sarita Hussein MD. Sarita Hussein MD: This documentation has been prepared by the rylandeAbad Aiswarya, SCRIBE, under my direction and personally reviewed by me in its entirety. I confirm that the documentation accurately reflects all work, treatment, procedures, and medical decision making performed by me. History of Present Illness - General Chief Complaint: Redness To Affected Area Stated Complaint: PAIN/REDNESS RLE Time Seen by Provider: 08/30/18 22:10 History Source: Patient Exam Limitations: No Limitations - History of Present Illness Initial Comments: 08/30/18 23:26 The patient is a 72 year old male, with a significant PMH of psoriasis, neck arthritis, HTN, HLD and GERD, who presents to the emergency department with right leg pain that began yesterday. The patient states pain is located to the posterior right with associated symptoms of erythema, warmth and psoriasis. He reports putting Bacitracin to the area, no relief. The patient denies any numbness or tingling;.Denies chest pain, shortness of breath, headache and dizziness. Denies fever, chills, nausea, vomiting, diarrhea and constipation. Allergies: Sulfa Past surgical history: None reported Social history: quit smoking 27 years ago. Denies any alcohol or recreational use. PCP:Jonathan Zhu Past History - Past Medical History Allergies/Adverse Reactions: Allergies Allergy/AdvReac Type Severity Reaction Status Date / Time Sulfa (Sulfonamide Allergy Unknown Verified 08/17/18 12:08 Antibiotics) Home Medications: Ambulatory Orders Losartan Potassium [Cozaar -] 50 mg PO DAILY 11/04/16 Amlodipine Besylate [Norvasc -] 10 mg PO DAILY 04/19/17 Zolpidem Tartrate [Ambien] 5 mg PO HS 08/21/17 Pyridoxine HCl (Vitamin B6) [Vitamin B-6] 50 mg PO WEEKLY 02/21/18 Atorvastatin Ca [Lipitor] 5 mg PO HS 08/17/18 Azithromycin 250 mg PO ASDIR 08/17/18 Amox-Tr/K Cl [Augmentin - 875Mg Tablet] 1 tab PO BID #14 tablet 08/31/18 Cardiac Disorders: Yes (sob, htn) COPD: No GI Disorders: Yes (GERD, gastritis,) HTN: Yes Hypercholesterolemia: Yes Kidney Stones: Yes Other medical history: PSORIASIS - Surgical History Cardiac Surgery: No - Immunization History Immunization Up to Date: Yes - Suicide/Smoking/Psychosocial Hx Smoking Status: Yes Smoking History: Unknown if ever smoked Have you smoked in the past 12 months: No Number of Cigarettes Smoked Daily: 0 If you are a former smoker, when did you quit?: 27 YEARS AGO Hx Alcohol Use: No Drug/Substance Use Hx: No Substance Use Type: None Hx Substance Use Treatment: No Review of Systems - Review of Systems Able to Perform ROS?: Yes Comments:: 08/30/18 23:26 GENERAL/CONSTITUTIONAL: No fever or chills. No weakness. HEAD, EYES, EARS, NOSE AND THROAT: No change in vision. No ear pain or discharge. No sore throat. CARDIOVASCULAR: No chest pain or shortness of breath. RESPIRATORY: No cough, wheezing, or hemoptysis. GASTROINTESTINAL: No nausea, vomiting, diarrhea or constipation. GENITOURINARY: No dysuria, frequency, or change in urination. MUSCULOSKELETAL: right leg pain. No neck or back pain. SKIN: + bilateral psoriasis NEUROLOGIC: No headache, vertigo, loss of consciousness, or change in strength/ sensation. ENDOCRINE: No increased thirst. No abnormal weight change. HEMATOLOGIC/LYMPHATIC: No anemia, easy bleeding, or history of blood clots. ALLERGIC/IMMUNOLOGIC: No hives or skin allergy. *Physical Exam - Vital Signs Last Vital Signs Temp Pulse Resp BP Pulse Ox 98 F 85 18 149/57 L 96 08/30/18 21:18 08/30/18 21:18 08/30/18 21:18 08/30/18 21:18 08/30/18 21:18 - Physical Exam Comments: 08/31/18 00:01 GENERAL: Awake, alert, and fully oriented, in no acute distress HEAD: No signs of trauma ENT: Auricles normal inspection, hearing grossly normal, nares patent, oropharynx clear without exudates. Moist mucosa NECK: Normal ROM, supple, no lymphadenopathy, JVD, or masses LUNGS: Breath sounds equal, clear to auscultation bilaterally. No wheezes, and no crackles HEART: Regular rate and rhythm, normal S1 and S2, no murmurs, rubs or gallops ABDOMEN: Soft, nontender, normoactive bowel sounds. No guarding, no rebound. No masses EXTREMITIES: Normal range of motion, no edema. No clubbing or cyanosis. No cords, erythema, or tenderness NEUROLOGICAL: Cranial nerves II through XII grossly intact. Normal speech, normal gait SKIN: +Bilateral edematous venous stasis changes of lower legs with scattered chronic psoriasis plaques bilaterally. Right lower leg; increased erythema and warmth to touch of the anterior aspect extending to the knee. Posteriorly, right leg mild tenderness and induration of the midline without fluctulance or palpable cord. No discrete open wounds or discharge evident ED Treatment Course - LABORATORY CBC & Chemistry Diagram: 08/30/18 23:14 08/30/18 23:14 Medical Decision Making - Medical Decision Making As noted above, this 72-year-old man with chronic venous stasis changes along with psoriatic plaques of the lower legs presents with an increase in redness/ pain/swelling/warmth to touch of the right lower leg. This has occurred over the last several days, increasing in the last 24 hours. No history of fever/ chills or other systemic symptoms. Patient has had a history of cellulitis in the past but no known colonization/infection with resistant organisms. Exam as noted. Since patient has induration and pain posteriorly, Doppler duplex ultrasound exam performed to evaluate for DVT. Preliminary interpretation by Imaging partition notcher: No DVT present. CBC/chemistry profile/lactic acid/blood cultures sent. CBC is essentially normal with normal white blood cell count. Lactic acid is normal. On the chemistry profile, patient has mild renal insufficiency ( creatinine of 1.5) which is essentially baseline as determined by the previous creatinine values on record here. Since there appears to be no clinical evidence of systemic infection, the patient can be treated as outpatient with oral antibiotics. He has an ALLERGY to sulfa but otherwise no side effects or sensitivities to other antibiotics. Patient was started on Augmentin 875/125 twice a day for one week. He is been warned to take this medication with the medial at every dose. He should follow- up with his PMD, Dr. Rose Villafana within the next few days for wound check. She return to the emergency room if he has any worsening of swelling/redness/pain or fever develops a fever/drainage from the wounds in his leg. *DC/Admit/Observation/Transfer Diagnosis at time of Disposition: Cellulitis of right lower leg - Discharge Dispostion Disposition: HOME Condition at time of disposition: Stable - Prescriptions Prescriptions: Amox-Tr/K Cl [Augmentin - 875Mg Tablet] 1 tab PO BID #14 tablet - Referrals Referrals: Jonathan Zhu MD [Primary Care Provider] - - Patient Instructions Printed Discharge Instructions: Cellulitis Additional Instructions: Augmentin 875/125 twice a day for one week (take with a meal) Continue other medications as prescribed Follow-up with Dr Zhu within the next 5-7 days Return to ER if you have worsening pain/swelling/redness or you develop fever/ chills - Post Discharge Activity
[2018-08-31] MEDS ORDERED: AMOX TR/POT CLAV 875MG/125MG TABLETS (FP) ONE (01:14)
== END 2018-08-31 01:20 | disposition home or self-care (01) ==
LOC: FER 21:15
DX: L03.115 Cellulitis of right lower limb (principal); Z87.891 Personal history of nicotine dependence; E78.00 Pure hypercholesterolemia, unspecified; I10 Essential (primary) hypertension
CPT/HCPCS: 36415; 80053; 83605; 85025; 87040; 93971-TC; 99282-25

== ENCOUNTER 2019-01-31 20:19 | Emergency (ER) | payer OTHER, MEDICARE ==
[2019-01-31 20:32] VITALS: BP 159/80; PULSE 67; TEMP 97.6; BMI 42.7
[2019-01-31] MEDS ORDERED: AMOX TR/POT CLAV 875MG/125MG TABLETS (FP) PO ONE (21:35)
[2019-01-31] MEDS ORDERED: AMOX TR/POT CLAV 875MG/125MG TABLETS (FP) ONE (21:38)
--- NOTE | 2019-01-31 22:31 | PDOC ---
Documentation entered by Mratha Estrada SCRIBE, acting as scribe for Sarita Hussein MD. Sarita Hussein MD: This documentation has been prepared by the ariadnaibeSean Maria, SCRIBE, under my direction and personally reviewed by me in its entirety. I confirm that the documentation accurately reflects all work, treatment, procedures, and medical decision making performed by me. History of Present Illness - General Chief Complaint: Edema Stated Complaint: RT LOWER LEG SWELLING, OOZING Time Seen by Provider: 01/31/19 20:38 - History of Present Illness Initial Comments: 01/31/19 21:53 The patient is a 73 year old male, with a significant PMH of psoriasis, neck arthritis, chronic lower extremity edema, HTN, HLD and GERD, who presents to the emergency department with right lower leg injury. Patient states he tends to hit his legs causing abrasions on his leg. Yesterday, he scraped his right lower leg against furniture at home. Patient states he began to notice weeping of the abrasions this morning prompting him to the ER. Patient was last seen in the ER this past summer with cellulitis of the right lower leg which was treated as an outpatient. Allergies: Sulfa Past surgical history: None reported Social history: Quit smoking 27 years ago. Denies any alcohol or recreational use. PCP:Jonathan Zhu Past History - Past Medical History Allergies/Adverse Reactions: Allergies Allergy/AdvReac Type Severity Reaction Status Date / Time Sulfa (Sulfonamide Allergy Unknown Verified 01/31/19 20:20 Antibiotics) Home Medications: Ambulatory Orders Losartan Potassium [Cozaar -] 50 mg PO DAILY 11/04/16 Amlodipine Besylate [Norvasc -] 10 mg PO DAILY 04/19/17 Zolpidem Tartrate [Ambien] 5 mg PO HS 08/21/17 Pyridoxine HCl (Vitamin B6) [Vitamin B-6] 50 mg PO WEEKLY 02/21/18 Amox-Tr/K Cl [Augmentin - 875Mg Tablet] 1 tab PO BID #14 tablet 01/31/19 Cholecalciferol (Vitamin D3) [Vitamin D3] 2,000 unit PO DAILY 01/31/19 Sertraline HCl [Zoloft -] 50 mg PO DAILY 01/31/19 Cardiac Disorders: Yes (sob, htn) COPD: No GI Disorders: Yes (GERD, gastritis,) HTN: Yes Hypercholesterolemia: Yes Kidney Stones: Yes - Surgical History Cardiac Surgery: No - Immunization History Immunization Up to Date: Yes - Psycho Social/Smoking Cessation Hx Smoking Status: Yes Smoking History: Never smoked Have you smoked in the past 12 months: No Number of Cigarettes Smoked Daily: 0 If you are a former smoker, when did you quit?: 27 YEARS AGO Information on smoking cessation initiated: No Hx Alcohol Use: No Drug/Substance Use Hx: No Substance Use Type: None Hx Substance Use Treatment: No Review of Systems - Review of Systems Able to Perform ROS?: Yes Comments:: 01/31/19 21:53 GENERAL/CONSTITUTIONAL: No fever or chills. No weakness. HEAD, EYES, EARS, NOSE AND THROAT: No change in vision. No ear pain or discharge. No sore throat. CARDIOVASCULAR: No chest pain or shortness of breath. RESPIRATORY: No cough, wheezing, or hemoptysis. GASTROINTESTINAL: No nausea, vomiting, diarrhea or constipation. GENITOURINARY: No dysuria, frequency, or change in urination. MUSCULOSKELETAL:+ lower leg swelling No joint or muscle pain. No neck or back pain. SKIN: No rash NEUROLOGIC: No headache, vertigo, loss of consciousness, or change in strength/ sensation. ENDOCRINE: No increased thirst. No abnormal weight change. HEMATOLOGIC/LYMPHATIC: No anemia, easy bleeding, or history of blood clots. ALLERGIC/IMMUNOLOGIC: No hives or skin allergy. *Physical Exam - Vital Signs Last Vital Signs Temp Pulse Resp BP Pulse Ox 97.6 F 67 18 159/80 96 01/31/19 20:19 01/31/19 20:19 01/31/19 20:19 01/31/19 20:19 01/31/19 20:19 - Physical Exam 01/31/19 21:54 GENERAL: Awake, alert, and fully oriented, in no acute distress HEAD: No signs of trauma EYES: PERRLA, EOMI, sclera anicteric, conjunctiva clear ENT: Auricles normal inspection, hearing grossly normal, nares patent, oropharynx clear without exudates. Moist mucosa NECK: Normal ROM, supple, no lymphadenopathy, JVD, or masses LUNGS: Breath sounds equal, clear to auscultation bilaterally. No wheezes, and no crackles HEART: Regular rate and rhythm, normal S1 and S2, no murmurs, rubs or gallops ABDOMEN: Soft, nontender, normoactive bowel sounds. No guarding, no rebound. No masses EXTREMITIES: +bilateral lower leg chronic venous changes. +scattered psoriatic plaques bilateral legs Right lower leg- 1cm of circular open lesion mid-anterior with clear exudate, no bloody drainage seen. 2 superficial non bloody abrasions on lateral aspect of mid lower leg without fluctuance or discharge.Mild surrounding erythema, slight increased warmth to touch. Normal range of motion. NEUROLOGICAL: Cranial nerves II through XII grossly intact. Normal speech, normal gait SKIN: Warm, Dry, normal turgor, no rashes or lesions noted. ED Progress Note - Progress Note Progress Note: as noted above, this 73-year-old man with chronic edema of bilateral lower extremities and recent history of cellulitis of the right leg presents with open wounds of the anterior and lateral aspect of the right mid lower leg. The wounds have clear drainage with a mild increase in erythema around the wounds. There has been no purulence and patient does not have fever/chills. Exam as noted. Since the patient is predisposed to cellulitis in light of his chronic lower extremity edema, with a subtle increase in erythema around the new wounds of the lower right leg, he will be started on empiric antibiotic course. Patient was prescribed Augmentin 875/125 twice a day when seen here in August for cellulitis of his lower extremity. He states that the medication was well- tolerated and was effective in treating the cellulitis. Wounds were redressed using bacitracin/Xeroform/sterile gauze dressing. Sterile gauze dressing should be changed daily. Augmentin 875/125, 1 tablet given to the patient now. Prescription for Augmentin 875/125 twice a day for 7 days sent to his pharmacy. Patient should plan on following up for wound recheck by Dr. Hill within the next few days. Meanwhile, if he has any purulent drainage, or develops increase in swelling/redness/pain or if fever/chills occurs, he should return to the ER Discharge - Discharge Information Problems reviewed: Yes Clinical Impression/Diagnosis: Cellulitis of right lower leg Condition: Stable Disposition: HOME - Additional Discharge Information Prescriptions: Amox-Tr/K Cl [Augmentin - 875Mg Tablet] 1 tab PO BID #14 tablet - Follow up/Referral Referrals: Jonathan Zhu MD [Primary Care Provider] - 1 week - Patient Discharge Instructions Patient Printed Discharge Instructions: Cellulitis Additional Instructions: Augmentin 875/125 twice a day; take each dose with a meal Bacitracin/gauze dressing to area;change daily Return to ER if you have increased discharge/swelling/redness of area or if you develop fever Follow-up with Dr. Hill within the next 5 to 7 days - Post Discharge Activity
== END 2019-01-31 21:42 | disposition home or self-care (01) ==
LOC: FER 20:19
DX: L03.115 Cellulitis of right lower limb (principal); Z88.2 Allergy status to sulfonamides; Z87.891 Personal history of nicotine dependence; K21.9 Gastro-esophageal reflux disease without esophagitis; I10 Essential (primary) hypertension; E78.00 Pure hypercholesterolemia, unspecified; N20.0 Calculus of kidney
CPT/HCPCS: 99282-25

== ENCOUNTER 2019-03-16 12:36 | Emergency (ER) | payer OTHER, MEDICARE ==
[2019-03-16 12:55] VITALS: BP 167/76; PULSE 67; TEMP 97.3; BMI 46.0
--- NOTE | 2019-03-16 13:00 | PDOC ---
History of Present Illness - General Chief Complaint: Edema Stated Complaint: RT LOWER LEG SWELLING Time Seen by Provider: 03/16/19 12:51 History Source: Patient Exam Limitations: No Limitations - History of Present Illness Initial Comments: 03/16/19 13:27 72 year old male, with a significant PMH of psoriasis, neck arthritis, HTN, HLD and GERD, Presents with intermittent Bilateral lower extremity swelling for the last several weeks, he notes that he has not been compliant with his diet and has been eating much salt. He notes that his swelling is worse after walking around and ambulating and improved with elevation and rest. He notes that several days ago he started having increased swelling and also noticed some oozing from his Psoriatec lower extremities. His also thought he may be a little warm and may need some antibiotics. He denies any fevers, chills, increased pain, increased redness. Patient states he is been using bacitracin and has been wrapping it. The elevation does the most in terms of improving his swelling. Patient denies any other symptoms including fever, chills, chest pain, shortness of breath, orthopnea, nausea, vomiting, diaphoresis, Back pain, abdominal pain Allergies: Sulfa Past surgical history: None reported Social history: quit smoking 27 years ago. Denies any alcohol or recreational use. PCP:Jonathan Zhu Constitutional - no reported Fever, Chills, HEENT: no reported vision changes, sore throat Respiratory: no reported cough, sob, hemoptysis Cardiac: +leg swelling no reported chest pain, palpitations, Abd/GI: no reported abd pain, nausea, vomiting, Musculskelatal - +bl leg swelling no reported back pain, joint swelling skin - +skin wound no reported bruising, erythema, rash neurological: no reported headache, numbness, focal weakness, tingling, ataxia, hematologic: no reported easy bruising, easy bleeding Exam GENERAL: The patient is awake, alert, and fully oriented, Nontoxic - in no acute distress. HEAD: Normocephalic, atraumatic. LUNGS: Breath sounds equal, clear to auscultation bilaterally. No wheezes, no rhonchi, no rales. HEART: Regular rate and rhythm, normal S1 and S2 without murmur, rub or gallop. ABDOMEN: Soft, nontender, No guarding, no rebound. No CVA tenderness EXTREMITIES: Normal range of motion, bl LE edema with psoriatic changes R lateral LE with opening with out focal warmth, eruthema/induration NEUROLOGICAL: No facial assymetry, Normal speech, moving all 4 extremities sptonaneously and symemtricall swellin glikely due to salt intake/fluid retention supportive care at home with bacitracin/bandage/g entle cleaning no signs of acute infection I discussed the physical exam findings, ancillary test results and final diagnoses with the patient. I answered all of the patient's questions. The patient was satisfied with the care received and felt comfortable with the discharge plan and treatment plan. The patient will call their primary care physician within 24 hours to arrange follow-up and will return to the Emergency Department with any new, persistent or worsening symptoms. Is this a multiple visit Asthma Patient?: No Past History - Past Medical History Allergies/Adverse Reactions: Allergies Allergy/AdvReac Type Severity Reaction Status Date / Time Sulfa (Sulfonamide Allergy Unknown Verified 03/16/19 12:38 Antibiotics) Home Medications: Ambulatory Orders Losartan Potassium [Cozaar -] 50 mg PO DAILY 11/04/16 Amlodipine Besylate [Norvasc -] 10 mg PO DAILY 04/19/17 Zolpidem Tartrate [Ambien] 5 mg PO HS 08/21/17 Pyridoxine HCl (Vitamin B6) [Vitamin B-6] 50 mg PO WEEKLY 02/21/18 Cholecalciferol (Vitamin D3) [Vitamin D3] 2,000 unit PO DAILY 01/31/19 Cardiac Disorders: Yes (sob, htn) COPD: No GI Disorders: Yes (GERD, gastritis,) HTN: Yes Hypercholesterolemia: Yes Kidney Stones: Yes - Surgical History Cardiac Surgery: No - Immunization History Immunization Up to Date: Yes - Psycho Social/Smoking Cessation Hx Smoking Status: Yes Smoking History: Never smoked Have you smoked in the past 12 months: No Number of Cigarettes Smoked Daily: 0 If you are a former smoker, when did you quit?: 27 YEARS AGO Information on smoking cessation initiated: No Hx Alcohol Use: No Drug/Substance Use Hx: No Substance Use Type: None Hx Substance Use Treatment: No *Physical Exam - Vital Signs Last Vital Signs Temp Pulse Resp BP Pulse Ox 97.3 F L 67 20 167/76 96 03/16/19 12:37 03/16/19 12:37 03/16/19 12:37 03/16/19 12:37 03/16/19 12:37 Discharge - Discharge Information Problems reviewed: Yes Clinical Impression/Diagnosis: Leg edema, Psoriasis Condition: Stable Disposition: HOME - Admission No - Follow up/Referral Referrals: Jonathan Zhu MD [Staff Physician] - - Patient Discharge Instructions Patient Printed Discharge Instructions: DI for Psoriasis, DI for Dependent Edema Additional Instructions: Return to the emergency department immediately with ANY new, persistent or worsening symptoms. Keep your wound clean and dry, apply bacitracin to it twice a day. If there is any increased redness, swelling, warmth return for further evaluation. For the leg swelling, keep your legs elevated, avoid salt. Come back to the hospital if you have any shortness of breath especially when you are laying down , chest pain, sweats or any other concerns You MUST call and follow up with your doctor in 4-5 days for further evaluation of your symptoms. Results were discussed with you. Please make sure your doctor reviews the results of your emergency evaluation. Your Emergency Department visit is not complete without a follow up with your doctor. Print Language: GREEK - Post Discharge Activity
== END 2019-03-16 13:38 | disposition home or self-care (01) ==
LOC: FER 12:36
DX: L40.9 Psoriasis, unspecified (principal); Z88.2 Allergy status to sulfonamides; Z87.891 Personal history of nicotine dependence; I10 Essential (primary) hypertension; R06.02 Shortness of breath; E78.00 Pure hypercholesterolemia, unspecified; N20.0 Calculus of kidney
CPT/HCPCS: 99281-25

== ENCOUNTER 2020-01-16 19:23 | Emergency (ER) | payer OTHER, MEDICARE | END 2020-01-16 19:51 | disposition home or self-care (01) | LOC: JVIRT 19:23 | DX: Z11.59 Encounter for screening for other viral diseases (principal) | CPT/HCPCS: C9803; Q3014-GT; U0003 ==

== ENCOUNTER 2021-08-19 20:45 | Emergency (ER) | payer OTHER, MEDICARE ==
[2021-08-19 21:20] VITALS: BP 160/72; PULSE 62; TEMP 98.6; BMI 40.0
[2021-08-19] MEDS ORDERED: AMOX TR/POT CLAV 875MG/125MG TABLETS (FP) PO ONE (22:00)
[2021-08-19] MEDS ORDERED: AMOX TR/POT CLAV 875MG/125MG TABLETS (FP) ONE (22:04)
== END 2021-08-19 22:10 | disposition home or self-care (01) ==
LOC: FER 20:45
DX: L03.115 Cellulitis of right lower limb (principal)
CPT/HCPCS: 99283-25

== ENCOUNTER 2022-06-16 13:25 | Emergency (ER) | payer OTHER, MEDICARE ==
[2022-06-16 13:38] VITALS: BP 145/74; PULSE 72; RESP 18; TEMP 98.1; BMI 39.3
== END 2022-06-16 14:40 | disposition home or self-care (01) ==
LOC: FER 13:25
DX: S81.801A Unspecified open wound, right lower leg, initial encounter (principal); Y99.9 Unspecified external cause status
CPT/HCPCS: 87070; 87186; 87205; 99283-25

== ENCOUNTER 2022-07-29 12:44 | Emergency (ER) | payer OTHER, MEDICARE ==
[2022-07-29 12:57] VITALS: RESP 18; TEMP 98.3; BMI 39.3
[2022-07-29] MEDS ORDERED: ALPRAZolam 0.25 MG TABLET PO ONE (13:14)
[2022-07-29] MEDS ORDERED: ALPRAZolam 0.25 MG TABLET ONE (13:17)
[2022-07-29 13:45] VITALS: BP 142/74; PULSE 98
== END 2022-07-29 14:11 | disposition home or self-care (01) ==
LOC: FER 12:44
DX: I10 Essential (primary) hypertension (principal); F41.9 Anxiety disorder, unspecified; I87.2 Venous insufficiency (chronic) (peripheral)
CPT/HCPCS: 99283-25

== ENCOUNTER 2022-10-31 09:58 | Emergency (ER) | payer OTHER, MEDICARE ==
[2022-10-31 10:11] VITALS: BP 144/83; PULSE 50; RESP 18; TEMP 97.7; BMI 36.6
== END 2022-10-31 10:45 | disposition home or self-care (01) ==
LOC: FER 09:58
DX: R22.41 Localized swelling, mass and lump, right lower limb (principal); I87.2 Venous insufficiency (chronic) (peripheral)
CPT/HCPCS: 99282-25

== ENCOUNTER 2024-03-06 14:05 | Emergency (ER) | payer OTHER, MEDICARE ==
[2024-03-06 14:24] VITALS: BP 125/77; PULSE 87; RESP 18; TEMP 97.5; BMI 36.6
== END 2024-03-06 17:25 | disposition home or self-care (01) ==
LOC: FER 14:05
DX: R05.1 Acute cough (principal); J10.1 Influenza due to other identified influenza virus with other respiratory manifestations; Z20.822 Contact with and (suspected) exposure to COVID-19
CPT/HCPCS: 0241U-QW; 71045-TC-FY; 82962; 99284-25

== ENCOUNTER 2024-09-25 13:55 | Emergency (ER) | payer OTHER, MEDICARE ==
[2024-09-25] MEDS ORDERED: IBUPROFEN 400 MG TABLET (FP) PO ONE (14:16)
[2024-09-25 14:26] VITALS: BP 159/79; PULSE 80; RESP 20; TEMP 97.6; BMI 39.0
[2024-09-25] MEDS: IBUPROFEN 400 MG TABLET (FP) PO ONE (14:26)
== END 2024-09-25 15:25 | disposition home or self-care (01) ==
LOC: FER 13:55
DX: U07.1 COVID-19 (principal); R05.9 Cough, unspecified; R09.81 Nasal congestion
CPT/HCPCS: 71046-TC-FY; 87637-QW; 99284-25

== ENCOUNTER 2024-10-11 11:48 | Emergency (ER) | payer OTHER, MEDICARE ==
[2024-10-11 12:03] VITALS: BP 103/47; PULSE 92; RESP 20; TEMP 98.6; BMI 38.8
[2024-10-11 12:48] LABS: INR 2.49 (0.83-1.09); PROTHROMBIN TIME (PATIENT) 27.6 SEC (9.7-13.0)
[2024-10-11 12:49] LABS: MCHC 32.0 g/dl (32.3-36.5); MEAN CELL VOLUME 95.8 fl (79.0-92.2); MEAN PLT VOLUME 10.0 fl (9.4-12.4); RDW 14.2 % (12.2-16.6)
[2024-10-11 12:56] LABS: ALK PHOS 96.0 U/L (45-117); CO2 24.0 mmol/L (21-32); CREATININE 2.0 mg/dl (0.6-1.3); GLUCOSE,RANDOM 96.0 mg/dl (74-106); SGOT/AST 13.0 U/L (15-37); SGPT/ALT 11.0 U/L (7-52); TOT PROT 6.3 g/dl (6.4-8.2)
[2024-10-11 14:25] LABS: N-TERMINAL BNP 10635.0 pg/mL (0-299.9)
[2024-10-11 15:34] LABS: HCV DIAGNOSTIC IN-HOUSE W/RFLX NON-REACTIVE (NONREACTIVE); HIV INTERPRETATION NEGATIVE (NEGATIVE)
== END 2024-10-11 16:45 | disposition home or self-care (01) ==
LOC: FER 11:48
DX: L03.115 Cellulitis of right lower limb (principal); L03.116 Cellulitis of left lower limb; L30.4 Erythema intertrigo; R50.9 Fever, unspecified; R09.81 Nasal congestion; R53.83 Other fatigue; R05.9 Cough, unspecified; R06.01 Orthopnea
CPT/HCPCS: 36415; 71046-TC-FY; 80053; 81003; 83880; 84484; 85025; 85379; 85610; 85651; 86140; 86803; 86850; 86900; 86901; 87040; 87086; 87389; 87637-QW; 93005; 99285-25